=== PATIENT | male | born 1960 | race Caucasian/White ===

== ENCOUNTER → 2018-01-22 | Outpatient (CLI) | payer SELFPAY ==
[~2018-01-22] MED LIST: AMLO5TAB2 PO; ASP325TEC PO; ASPI-983 PO; ASPI-999 PO; BUSP10TA95 PO; CIPR-225 PO; CIPR500T4 PO; CLOP75TA PO; DIAZ5TAB PO; HYDR-3730 PO; HYDR-3923 PO; ISM60TCR PO; ISOS30TA3 PO; LISI10TA2 PO; LOVA20TA2 PO; LSNP20T PO; METO-333 PO; METO-387 PO; METO25TA2 PO; METR500T PO; METR500T21 PO; MTP50T PO; NF-MINO10T PO; OXYC-201 PO; OXYC-202 PO; PANT40TA2 PO; POTA10TA10 PO; RT-ALBUINH IH; SMV20T PO; TRIA1CAP4 PO; ZOLP10TA5 PO; [UNRECOGNIZED DRUG - OTHER]
[2018-01-22 16:08] LABS: BASOPHILS % (AUTO) 0 % (0-10); EOSINOPHILS # (AUTO) 0.1 10^3/uL (0.0-0.3); EOSINOPHILS % (AUTO) 2 % (0-10); HEMATOCRIT 42 % (40-54); HEMOGLOBIN 14.8 G/DL (13.3-17.7); LYMPHOCYTES % (AUTO) 25 % (12-44); MEAN CORPUSCULAR HEMOGLOBIN 33 PG (25-34); MEAN CORPUSCULAR HGB CONC 35 G/DL (32-36); MEAN CORPUSCULAR VOLUME 94 FL (80-99); MEAN PLATELET VOLUME 9.5 FL (7.4-10.4); MONOCYTES # (AUTO) 0.4 X 10^3 (0.0-1.0); MONOCYTES % (AUTO) 5 % (0-12); NEUTROPHILS # (AUTO) 5.4 X 10^3 (1.8-7.8); NEUTROPHILS % (AUTO) 68 % (42-75); PLATELET COUNT 208 10^3/uL (130-400); RED BLOOD COUNT 4.49 10^6/uL (4.35-5.85); RED CELL DISTRIBUTION WIDTH 14.8 % (10.0-14.5); WHITE BLOOD COUNT 7.9 10^3/uL (4.3-11.0)
[2018-01-22 16:09] LABS: BILIRUBIN,URINE NEGATIVE (NEGATIVE); CLARITY,URINE CLEAR; COLOR,URINE YELLOW; GLUCOSE, URINE (UA) NEGATIVE (NEGATIVE); KETONES,URINE NEGATIVE (NEGATIVE); LEUKOCYTE ESTERASE ,URINE NEGATIVE (NEGATIVE); NITRITE,URINE NEGATIVE (NEGATIVE); PH,URINE 7 (5-9); PROTEIN,URINE 3+ (NEGATIVE); UROBILINOGEN,URINE NORMAL (NORMAL)
[2018-01-22 16:15] LABS: SQUAMOUS EPITHELIAL CELL,UR 0-2 /HPF; WBC,URINE RARE /HPF
[2018-01-22 16:28] LABS: ALBUMIN 4.4 GM/DL (3.2-4.5); BILIRUBIN,TOTAL 0.7 MG/DL (0.1-1.0); CALCIUM 9.5 MG/DL (8.5-10.1); CREATININE SERUM 1.46 MG/DL (0.60-1.30); POTASSIUM 2.7 MMOL/L (3.6-5.0); TOTAL PROTEIN 7.4 GM/DL (6.4-8.2)
== END ==
LOC: LAB 15:56
PROVIDERS: ATTEND Internal Medicine
DX: Z00.00 Encounter for general adult medical examination without abnormal findings (principal); R73.9 Hyperglycemia, unspecified
CPT/HCPCS: 36415; 80053; 81000; 82985; 83036; 85025

== ENCOUNTER → 2018-03-17 | Outpatient (CLI) | payer SELFPAY ==
[~2018-03-17] MED LIST changes: -AMLO5TAB2 PO; +AMLO5TAB7 PO; -OXYC-201 PO; -OXYC-202 PO; +OXYC1TAB12 PO; +OXYC1TAB16 PO
[2018-03-17 15:24] LABS: CALCIUM 9.6 MG/DL (8.5-10.1); CREATININE SERUM 1.43 MG/DL (0.60-1.30); POTASSIUM 2.9 MMOL/L (3.6-5.0)
== END ==
LOC: LAB 14:50
PROVIDERS: ATTEND Internal Medicine
DX: N17.9 Acute kidney failure, unspecified (principal)
CPT/HCPCS: 36415; 80048

== ENCOUNTER → 2018-05-11 | Outpatient (CLI) | payer SELFPAY ==
[~2018-05-11] MED LIST changes: +METR-197 PO; -METR500T21 PO
[2018-05-11 13:46] LABS: ALBUMIN 4.2 GM/DL (3.2-4.5); CALCIUM 9.7 MG/DL (8.5-10.1); CREATININE SERUM 1.49 MG/DL (0.60-1.30); POTASSIUM 3.4 MMOL/L (3.6-5.0)
== END ==
LOC: LAB 13:08
PROVIDERS: ATTEND Thoracic Surgery (Cardiothoracic Vascular Surgery)
DX: I25.10 Atherosclerotic heart disease of native coronary artery without angina pectoris (principal); Z95.1 Presence of aortocoronary bypass graft
CPT/HCPCS: 36415; 80069; 84100

== ENCOUNTER → 2018-05-11 | Outpatient (CLI) | payer SELFPAY ==
[2018-05-11 13:31] LABS: BASOPHILS % (AUTO) 0 % (0-10); EOSINOPHILS # (AUTO) 0.2 10^3/uL (0.0-0.3); EOSINOPHILS % (AUTO) 3 % (0-10); HEMATOCRIT 40 % (40-54); HEMOGLOBIN 13.2 G/DL (13.3-17.7); LYMPHOCYTES % (AUTO) 21 % (12-44); MEAN CORPUSCULAR HEMOGLOBIN 31 PG (25-34); MEAN CORPUSCULAR HGB CONC 33 G/DL (32-36); MEAN CORPUSCULAR VOLUME 94 FL (80-99); MEAN PLATELET VOLUME 8.4 FL (7.4-10.4); MONOCYTES # (AUTO) 0.4 X 10^3 (0.0-1.0); MONOCYTES % (AUTO) 4 % (0-12); NEUTROPHILS # (AUTO) 7.1 X 10^3 (1.8-7.8); NEUTROPHILS % (AUTO) 73 % (42-75); PLATELET COUNT 404 10^3/uL (130-400); RED BLOOD COUNT 4.28 10^6/uL (4.35-5.85); RED CELL DISTRIBUTION WIDTH 14.5 % (10.0-14.5); WHITE BLOOD COUNT 9.7 10^3/uL (4.3-11.0)
[2018-05-11 13:49] LABS: ALBUMIN 4.2 GM/DL (3.2-4.5); BILIRUBIN,TOTAL 0.8 MG/DL (0.1-1.0); CALCIUM 9.6 MG/DL (8.5-10.1); CREATININE SERUM 1.5 MG/DL (0.60-1.30); POTASSIUM 3.3 MMOL/L (3.6-5.0); TOTAL PROTEIN 7.5 GM/DL (6.4-8.2)
== END ==
LOC: LAB 13:15
PROVIDERS: ATTEND Internal Medicine
DX: I10 Essential (primary) hypertension (principal); R73.9 Hyperglycemia, unspecified
CPT/HCPCS: 36415; 80053; 85025

== ENCOUNTER 2018-10-22 05:04 | Inpatient (IN) | payer SELFPAY, OTHER | END 2018-10-24 14:27 | disposition home or self-care (01) | LOC: ER 05:04 → 4TH 10-23 13:04 → ICU 07:08 | DX: I13.0 Hypertensive heart and chronic kidney disease with heart failure and stage 1 through stage 4 chronic kidney disease, or unspecified chronic kidney disease (principal); I50.23 Acute on chronic systolic (congestive) heart failure; N18.9 Chronic kidney disease, unspecified; I21.A1 Myocardial infarction type 2; J44.1 Chronic obstructive pulmonary disease with (acute) exacerbation; N17.9 Acute kidney failure, unspecified; I16.0 Hypertensive urgency; E87.6 Hypokalemia; R06.89 Other abnormalities of breathing; F17.210 Nicotine dependence, cigarettes, uncomplicated; I25.708 Atherosclerosis of coronary artery bypass graft(s), unspecified, with other forms of angina pectoris; I25.5 Ischemic cardiomyopathy; E11.51 Type 2 diabetes mellitus with diabetic peripheral angiopathy without gangrene; E78.2 Mixed hyperlipidemia; R79.89 Other specified abnormal findings of blood chemistry; R80.1 Persistent proteinuria, unspecified; M19.91 Primary osteoarthritis, unspecified site; D72.829 Elevated white blood cell count, unspecified; Z91.14 Patient's other noncompliance with medication regimen; Z95.1 Presence of aortocoronary bypass graft; Z95.5 Presence of coronary angioplasty implant and graft; Z95.820 Peripheral vascular angioplasty status with implants and grafts ==

== ENCOUNTER → 2018-10-29 | Outpatient (CLI) | payer OTHER ==
[~2018-10-29] MED LIST changes: +AMLO10TA7 PO; -AMLO5TAB7 PO; +AMLO5TAB9 PO; +EPIN11.7 IH; +FLUT1DIS27 IH; +FURO-124 PO; +FURO20TA4 PO; +METO-451 PO; +METR-145 PO; -METR-197 PO; +PRAV20TA3 PO; +TRAZ-189 PO
[2018-10-29 10:03] LABS: BASOPHILS % (AUTO) 0 % (0-10); EOSINOPHILS # (AUTO) 0.2 10^3/uL (0.0-0.3); EOSINOPHILS % (AUTO) 1 % (0-10); HEMATOCRIT 44 % (40-54); HEMOGLOBIN 13.7 G/DL (13.3-17.7); LYMPHOCYTES # (AUTO) 2.3 X 10^3 (1.0-4.0); LYMPHOCYTES % (AUTO) 18 % (12-44); MEAN CORPUSCULAR HEMOGLOBIN 28 PG (25-34); MEAN CORPUSCULAR HGB CONC 31 G/DL (32-36); MEAN CORPUSCULAR VOLUME 88 FL (80-99); MEAN PLATELET VOLUME 9.1 FL (7.4-10.4); MONOCYTES # (AUTO) 1.1 X 10^3 (0.0-1.0); MONOCYTES % (AUTO) 9 % (0-12); NEUTROPHILS # (AUTO) 8.8 X 10^3 (1.8-7.8); NEUTROPHILS % (AUTO) 71 % (42-75); PLATELET COUNT 251 10^3/uL (130-400); RED CELL DISTRIBUTION WIDTH 16.4 % (10.0-14.5); WHITE BLOOD COUNT 12.4 10^3/uL (4.3-11.0)
[2018-10-29 10:27] LABS: BILIRUBIN,TOTAL 1.2 MG/DL (0.1-1.0); CALCIUM 9.5 MG/DL (8.5-10.1); CREATININE SERUM 1.79 MG/DL (0.60-1.30); POTASSIUM 3.8 MMOL/L (3.6-5.0)
--- NOTE | 2018-10-29 11:35 | Diagnostic Imaging Report ---
INDICATION: Shortness of breath PA and lateral chest There are postop changes from CABG surgery. Heart size and pulmonary vascularity are normal. Lungs are clear. There are no effusions or pneumothoraces. IMPRESSION: No acute abnormalities in the chest Dictated by: Dictated on workstation # [id number]
== END ==
LOC: LAB 09:47
PROVIDERS: ATTEND Internal Medicine
DX: I10 Essential (primary) hypertension (principal); I73.9 Peripheral vascular disease, unspecified; R10.9 Unspecified abdominal pain; J44.9 Chronic obstructive pulmonary disease, unspecified; R05 Cough; Z95.1 Presence of aortocoronary bypass graft
CPT/HCPCS: 36415; 71046; 80053; 83880; 85025

== ENCOUNTER 2018-11-15 18:40 | Observation (INO) | payer OTHER ==
[~2018-11-15] VITALS: Ht 182.9 cm; Wt 85.5 kg
[2018-11-15] VITALS (7 sets, daily range): BP systolic 129–175; BP diastolic 68–96
[~2018-11-15 18:40] MED LIST changes: -TRAZ-189 PO; +TRAZ-222 PO
--- NOTE | 2018-11-15 18:56 | ED Chest Pain ---
General Chief Complaint: Chest Pain Stated Complaint: CP Source: patient, EMS, old records Exam Limitations: no limitations History of Present Illness Date Seen by Provider: Nov 15, 2018 Time Seen by Provider: 18:42 Initial Comments Patient presents to ER by EMS with chief complaint that he was about 30 minutes prior to arrival sitting in his living room watching TV when he began to experience sharp 10 out of 10 right-sided chest pain. He has a history of CABG, congestive heart failure and just got out of the hospital 2 weeks ago. He had a 1 week follow-up and said he still had fluid on his lungs but was looking okay. Many of his medicines been changed so he's not as familiar with them now but he thinks he has been taking all of them as prescribed with the exception of one pill but he missed yesterday. He is not sure what the name of it was. He took a dose of nitroglycerin at 1805 which helped his pain and he took a second dose about 10 minutes later just prior to EMS arriving. By the time EMS arrived his pain was pretty much resolved. He is having no shortness of breath orthopnea or swelling in his hands or feet. He denies any weight gain recently. EMS gave him 324 mg of aspirin to chew up and swallow. His blood pressure was about 107 systolic so the did not give him any more nitroglycerin as he was pain-free. He also has a history of synthetic aortofemoral bypass grafts bilaterally. He does still smoke but is down from 2 packs a day to one pack a day working on [employer]. He had nausea at the time of this pain but that has resolved before EMS got to him. Allergies and Home Medications Allergies Coded Allergies: No Known Drug Allergies (Unverified , 03/18/11) Home Medications Amlodipine Besylate 10 Mg Tablet, 10 MG PO DAILY Prescribed by: YINA REAGAN on 10/24/18 1149 Aspirin 81 Mg Tab.chew, 81 MG PO DAILY, (Reported) Epinephrine 11.7 Gm Hfa.aer.ad, 1-2 PUFF IH Q6H PRN for SHORTNESS OF BREATH, (Reported) Furosemide 40 Mg Tablet, 40 MG PO Q48H Prescribed by: YINA REAGAN on 10/24/18 1149 Metoprolol Tartrate 50 Mg Tablet, 25 MG PO BID Prescribed by: YINA REAGAN on 10/24/18 1149 Pravastatin Sodium 20 Mg Tablet, 20 MG PO DAILY Prescribed by: YINA REAGAN on 10/24/18 1149 Trazodone HCl 50 Mg Tablet, 50 MG PO HS PRN for SLEEP, (Reported) Patient Home Medication List Home Medication List Reviewed: Yes Review of Systems Review of Systems Constitutional: No chills, No diaphoresis EENTM: No Blurred Vision, No Double Vision Respiratory: Cough (Baseline often productive); Denies Shortness of Air, Denies Wheezing Cardiovascular: See HPI, Chest Pain; Denies Edema, Denies Palpitations, Denies Syncope Gastrointestinal: Denies Constipated, Denies Diarrhea; Nausea Genitourinary: Denies Burning, Denies Discharge Musculoskeletal: No back pain, No joint pain Skin: No change in color, No rash Psychiatric/Neurological: Denies Headache, Denies Numbness Past Ppvrnei-Gjjfxi-Bppozr Hx Patient Social History Alcohol Use: Occasionally Uses Alcohol Beverage of Choice: Beer Recreational Drug Use: No Smoking Status: Current Everyday Smoker Type Used: Cigarettes (one pack per day) Recent Foreign Travel: No Contact w/Someone Who Travel: No Recent Hopitalizations: No Immunizations Up To Date Tetanus Booster (TDap): Unknown PED Vaccines UTD: No Seasonal Allergies Seasonal Allergies: No Past Medical History Surgeries: Yes Abdominal, Appendectomy, Cardiac, CABG, Coronary Stent, Vascular Surgery Respiratory: Yes Asthma, COPD Currently Using CPAP: No Currently Using BIPAP: No Cardiac: Yes Coronary Artery Disease, High Cholesterol, Hypertension, Peripheral Vascular Neurological: No Reproductive Disorders: No Sexually Transmitted Disease: No HIV/AIDS: No Genitourinary: No Gastrointestinal: Yes (UMBILICAL HERNIA REPAIR) Abdominal Hernia Musculoskeletal: Yes Arthritis, Chronic Back Pain Endocrine: Yes Diabetes, Non-Insulin dep HEENT: No Hearing Impairment: Hard of Hearing Cancer: No Psychosocial: No Integumentary: No Blood Disorders: No Adverse Reaction/Blood Tranf: No Family Medical History Cardiovascular disease 19 FATHER 19 MOTHER Deafness or hearing loss 19 FATHER Diabetes mellitus 19 FATHER 19 MOTHER FH: cancer Hypercholesterolemia 19 FATHER 19 MOTHER Hypertension 19 FATHER 19 MOTHER Myocardial infarction 19 FATHER 19 MOTHER No Pertinent Family Hx, CAD Over 55 Years Old, Diabetes, Hypertension Physical Exam Vital Signs Vital Signs - First Documented 11/15/18 11/15/18 18:40 18:48 Temp 97.6 Pulse 64 Resp 24 B/P (MAP) 147/84 (105) Pulse Ox 97 O2 Delivery Room Air Capillary Refill : Height, Weight, BMI Height: 6'0.00" Weight: 191lbs. 8.0oz. 86.046140dx; 29.8 BMI Method:Stated General Appearance: No Apparent Distress, WD/WN HEENT: PERRL/EOMI, Pharynx Normal, Moist Mucous Membranes Neck: Full Range of Motion, Normal Inspection Respiratory: No Accessory Muscle Use, No Respiratory Distress, Decreased Breath Sounds Cardiovascular: Regular Rate, Rhythm, No Edema, Normal Peripheral Pulses Gastrointestinal: Non Tender, Soft Extremity: Normal Capillary Refill, Normal Inspection, Pedal Edema (trace bilateral) Neurologic/Psychiatric: Alert, Oriented x3 Skin: Normal Color, Warm/Dry Progress/Results/Core Measures Results/Orders Lab Results Laboratory Tests Test 11/15/18 18:47 Range/Units White Blood Count 11.9 H 4.3-11.0 10^3/uL Red Blood Count 4.93 4.35-5.85 10^6/uL Hemoglobin 13.5 13.3-17.7 G/DL Hematocrit 42 40-54 % Mean Corpuscular Volume 84 80-99 FL Mean Corpuscular Hemoglobin 27 25-34 PG Mean Corpuscular Hemoglobin Concent 33 32-36 G/DL Red Cell Distribution Width 15.3 H 10.0-14.5 % Platelet Count 240 130-400 10^3/uL Mean Platelet Volume 9.1 7.4-10.4 FL Neutrophils (%) (Auto) 60 42-75 % Lymphocytes (%) (Auto) 32 12-44 % Monocytes (%) (Auto) 6 0-12 % Eosinophils (%) (Auto) 2 0-10 % Basophils (%) (Auto) 0 0-10 % Neutrophils # (Auto) 7.1 1.8-7.8 X 10^3 Lymphocytes # (Auto) 3.8 1.0-4.0 X 10^3 Monocytes # (Auto) 0.7 0.0-1.0 X 10^3 Eosinophils # (Auto) 0.2 0.0-0.3 10^3/uL Basophils # (Auto) 0.0 0.0-0.1 10^3/uL Prothrombin Time 12.8 12.2-14.7 SEC INR Comment 0.9 0.8-1.4 Activated Partial Thromboplast Time 40 H 24-35 SEC Sodium Level 138 135-145 MMOL/L Potassium Level 3.2 L 3.6-5.0 MMOL/L Chloride Level 101 98-107 MMOL/L Carbon Dioxide Level 25 21-32 MMOL/L Anion Gap 12 5-14 MMOL/L Blood Urea Nitrogen 15 7-18 MG/DL Creatinine 1.33 H 0.60-1.30 MG/DL Estimat Glomerular Filtration Rate 55 BUN/Creatinine Ratio 11 Glucose Level 77 70-105 MG/DL Calcium Level 9.1 8.5-10.1 MG/DL Corrected Calcium 9.3 8.5-10.1 MG/DL Magnesium Level 1.9 1.8-2.4 MG/DL Total Bilirubin 0.4 0.1-1.0 MG/DL Aspartate Amino Transf (AST/SGOT) 16 5-34 U/L Alanine Aminotransferase (ALT/SGPT) 13 0-55 U/L Alkaline Phosphatase 103 40-136 U/L Myoglobin 53.9 10.0-92.0 NG/ML Troponin I 0.049 H <0.028 NG/ML B-Type Natriuretic Peptide 602.6 H <100.0 PG/ML Total Protein 6.4 6.4-8.2 GM/DL Albumin 3.7 3.2-4.5 GM/DL Lipase 104 H 8-78 U/L My Orders Orders - TITO WILEY Cbc With Automated Diff (11/15/18 18:50) Magnesium (11/15/18 18:50) Chest 1 View, Ap/Pa Only (11/15/18 18:50) Ekg Tracing (11/15/18 18:50) Cardiac Profile 1 (11/15/18 18:50) Comprehensive Metabolic Panel (11/15/18 18:50) Myoglobin Serum (11/15/18 18:50) Protime With Inr (11/15/18 18:50) Partial Thromboplastin Time (11/15/18 18:50) O2 (11/15/18 18:50) Monitor-Rhythm Ecg Trace Only (11/15/18 18:50) Lipid Panel (11/16/18 06:00) Ed Iv/Invasive Line Start (11/15/18 18:50) Lipase (11/15/18 18:50) BNP (11/15/18 18:50) Metoprolol Succinate (Xl) Tab (Toprol Xl (11/15/18 20:00) Enoxaparin Injection (Lovenox Injection) (11/15/18 20:00) Vital Signs/I&O 11/15/18 11/15/18 18:40 18:48 Temp 97.6 Pulse 64 Resp 24 B/P (MAP) 147/84 (105) Pulse Ox 97 O2 Delivery Room Air Progress Progress Note : Time: 18:57 Progress Note Patient is pain-free at this time. Since he had an anginal event that was resolved with 2 doses of nitroglycerin. We will obtain BNP, troponin and consult with cardiology. Initial ECG Impression Date: Nov 15, 2018 Initial ECG Impression Time: 18:45 Initial ECG Rate: 64 Initial ECG Rhythm: Normal Sinus Initial ECG Intervals: Normal Initial ECG Impression: Normal, Nonspecific Changes Initial ECG Comparisson: Unchanged Comment No significant ST elevation or depression. Diagnostic Imaging Diagonstic Imaging: Xray Plain Films/CT/US/NM/MRI: chest (1v) Comments No acute cardiopulmonary processes noted. Reviewed: Reviewed by Me Consults : Consulting Physician: CHERIE JOHNSON MD FACP FACC CCDS Consults Notes He would recommend observation of the patient serial troponins and Lovenox weight-based as well as aspirin and metoprolol 25 succinate. Regular diet. Departure Communication (Admissions) Time/Spoke to Admitting Phy: 20:00 Discussed case lab EKG imaging findings with Dr. Reagan and she recommends nicotine patch, Xanax, Tylenol and morphine as necessary for pain and agitation. Time/Spoke to Consulting Phy: 20:[address] Johnson and his recommendations of metoprolol and Lovenox were initiated. Regular diet and transfer of care and consult back to Dr. Arteaga in the morning. Impression Primary Impression: Unstable angina Additional Impression: Chest pain due to CAD Disposition: ADMITTED INPATIENT Condition: Stable Admissions Decision to Admit Reason: Admit from ER (General) Decision to Admit/Date: Nov 15, 2018 Time/Decision to Admit Time: 19:30 Departure-Patient Inst. Referrals: YINA REAGAN DO (PCP/Family) Primary Care Physician TITO WILEY Nov 15, 2018 18:56
[2018-11-15 18:57] LABS: BASOPHILS % (AUTO) 0 % (0-10); EOSINOPHILS # (AUTO) 0.2 10^3/uL (0.0-0.3); EOSINOPHILS % (AUTO) 2 % (0-10); HEMATOCRIT 42 % (40-54); HEMOGLOBIN 13.5 G/DL (13.3-17.7); LYMPHOCYTES # (AUTO) 3.8 X 10^3 (1.0-4.0); LYMPHOCYTES % (AUTO) 32 % (12-44); MEAN CORPUSCULAR HEMOGLOBIN 27 PG (25-34); MEAN CORPUSCULAR HGB CONC 33 G/DL (32-36); MEAN CORPUSCULAR VOLUME 84 FL (80-99); MEAN PLATELET VOLUME 9.1 FL (7.4-10.4); MONOCYTES # (AUTO) 0.7 X 10^3 (0.0-1.0); MONOCYTES % (AUTO) 6 % (0-12); NEUTROPHILS # (AUTO) 7.1 X 10^3 (1.8-7.8); NEUTROPHILS % (AUTO) 60 % (42-75); PLATELET COUNT 240 10^3/uL (130-400); RED CELL DISTRIBUTION WIDTH 15.3 % (10.0-14.5); WHITE BLOOD COUNT 11.9 10^3/uL (4.3-11.0)
[2018-11-15 19:05] LABS: INR 0.9 (0.8-1.4); PROTHROMBIN TIME PATIENT 12.8 SEC (12.2-14.7)
[2018-11-15 19:15] LABS: ALBUMIN 3.7 GM/DL (3.2-4.5); BILIRUBIN,TOTAL 0.4 MG/DL (0.1-1.0); CALCIUM 9.1 MG/DL (8.5-10.1); CREATININE SERUM 1.33 MG/DL (0.60-1.30); MAGNESIUM 1.9 MG/DL (1.8-2.4); POTASSIUM 3.2 MMOL/L (3.6-5.0); TOTAL PROTEIN 6.4 GM/DL (6.4-8.2)
[2018-11-15] MEDS ORDERED: ENOXAPARIN 100 MG/1 ML (LOVENOX) SYR SC ONE (20:00)
--- NOTE | 2018-11-15 20:21 | Diagnostic Imaging Report ---
INDICATION: Chest pain. COMPARISON: 10/29/2018. EXAMINATION: Single view of the chest was obtained. FINDINGS: Cardiomegaly with median sternotomy changes are again noted. There has been development of mild bilateral perihilar infiltrate, bilaterally, since previous exam. There are no consolidated infiltrates. No pneumothorax or pleural effusion. IMPRESSION: 1. Cardiomegaly with postoperative change. 2. Bilateral perihilar infiltrates developing which may be secondary to developing pulmonary edema. Atypical pneumonia could have similar appearance. Dictated by: Dictated on workstation # [id number]
--- NOTE | 2018-11-15 20:25 | NUR ---
Report given to CHANDAN Frazier in ICU
[2018-11-15] MEDS ORDERED: NITROGLYCERIN 0.4 MG SL TABS BTL 25'S SL PRN (20:45)
[2018-11-15] MEDS ORDERED: ALPRAZolam 1 MG (XANAX) TAB PO PRN (20:45)
[2018-11-15] MEDS ORDERED: ACETAMINOPHEN 500 MG TAB (TYLENOL) PO PRN (20:45)
[2018-11-15] MEDS ORDERED: ONDANSETRON 4 MG/2 ML (SDV) Z0FRAN IV PRN (20:45)
[2018-11-15] MEDS ORDERED: morphine INJ 4 MG/ML 1 ML (VIAL/SYRINGE) IV PRN (20:45)
[2018-11-15] MEDS ORDERED: traZODone 50 MG (DESYREL) TAB PO PRN (20:45)
[2018-11-15] MEDS ORDERED: ANTACID SUSP 30 ML UDC (MYLANTA) PO PRN (20:45)
[2018-11-15] MEDS ORDERED: ATORVASTATIN 40 MG (LIPITOR) TABLET PO SCH (21:00)
[2018-11-15] MEDS: meTOprolol TARTRATE 25 MG (LOPRESSOR) TABLET PO SCH (21:07)
[2018-11-15] MEDS: KCL 20 MEQ TAB (K-DUR) PO SCH (21:07)
--- NOTE | 2018-11-15 21:39 | NUR ---
PT BROUGHT SOME OF HIS HOME MEDS. ADVISED THAT HAS PRESCRIBED SOME DIFFERENT MEDS AT DIFFERENT DOSES AND WE HAVE TO FOLLOW THE NEW ORDERS. GAVE MEDS BACK TO PT AND HIS YESSENIA AND THEY VOICED THEIR UNDERSTANDING. ADVISED THEM TO DISCUSS MEDS W IN THE MORNING.
[2018-11-16] VITALS: BP 144/72
--- NOTE | 2018-11-16 00:43 | NUR ---
GAVE REPORT TO CHANDAN ALVES.
[2018-11-16 01:11] LABS: BASOPHILS % (AUTO) 0 % (0-10); EOSINOPHILS # (AUTO) 0.2 10^3/uL (0.0-0.3); EOSINOPHILS % (AUTO) 2 % (0-10); HEMATOCRIT 42 % (40-54); HEMOGLOBIN 13.5 G/DL (13.3-17.7); LYMPHOCYTES # (AUTO) 2.9 X 10^3 (1.0-4.0); LYMPHOCYTES % (AUTO) 29 % (12-44); MEAN CORPUSCULAR HEMOGLOBIN 27 PG (25-34); MEAN CORPUSCULAR HGB CONC 33 G/DL (32-36); MEAN CORPUSCULAR VOLUME 84 FL (80-99); MEAN PLATELET VOLUME 9.1 FL (7.4-10.4); MONOCYTES # (AUTO) 0.5 X 10^3 (0.0-1.0); MONOCYTES % (AUTO) 5 % (0-12); NEUTROPHILS # (AUTO) 6.5 X 10^3 (1.8-7.8); NEUTROPHILS % (AUTO) 64 % (42-75); PLATELET COUNT 200 10^3/uL (130-400); RED CELL DISTRIBUTION WIDTH 15.5 % (10.0-14.5); WHITE BLOOD COUNT 10.1 10^3/uL (4.3-11.0)
[2018-11-16 01:27] LABS: CALCIUM 9.2 MG/DL (8.5-10.1); CREATININE SERUM 1.37 MG/DL (0.60-1.30); POTASSIUM 3.2 MMOL/L (3.6-5.0)
[2018-11-16 01:28] LABS: CHOLESTEROL 164 MG/DL (< 200); HDL CHOLESTEROL 33 MG/DL (40-60); TRIGLYCERIDES 157 MG/DL (<150); VLDL CHOLESTEROL 31 MG/DL (5-40)
[2018-11-16 04:00] VITALS: BP 152/81
[2018-11-16 05:00] VITALS: BP 100/56
[2018-11-16 06:00] VITALS: BP 101/58
[2018-11-16] MEDS ORDERED: FUROSEMIDE 40 MG (LASIX) TAB PO SCH (07:00)
--- NOTE | 2018-11-16 07:49 | Consultation-Cardiology ---
HPI-Cardiology Cardiology Consultation Date of Consultation 11/16/18 Date of Admission Time Seen by Provider: 07:43 Indication: chest pain HPI 58 years old gentleman with extensive coronary and peripheral arterial disease was in his usual state of health until yesterday evening when he started having sudden onset severe chest pain retrosternal, took a nitroglycerin that did not h elp the pain after the second nitroglycerin started to feel better by then the EMS were called and brought him to the hospital. He has been feeling better since arriving to the hospital, denied any further episode of chest pain, he felt hot and flushed but denied any syncope. No palpitation. Has been compliant with his medication but not sure about his medication list, still an active smoker and working on smoking cessation Home Medications & Allergies Allergies: Coded Allergies: No Known Drug Allergies (Unverified , 03/18/11) Home Medication List Reviewed: Yes patient is not sure of his medication list [id number]-Giitpo Hx Patient Social History Marital Status: Employed/Student: employed Alcohol Use: Occasionally Uses Recreational Drug Use: No Smoking Status: Current Everyday Smoker Type Used: Cigarettes (one pack per day) Recent Foreign Travel: No Recent Infectious Disease Expo: No Recent Hopitalizations: Yes (2 weeks ago at [facility]) Immunizations Up To Date Tetanus Booster (TDap): Unknown Past Medical History discussed below Family Medical History Significant Family History: No Pertinent Family Hx, CAD Over 55 Years Old, Gilda betes, Hypertension Family History: Cardiovascular disease 19 FATHER 19 MOTHER Deafness or hearing loss 19 FATHER Diabetes mellitus 19 FATHER 19 MOTHER FH: cancer Hypercholesterolemia 19 FATHER 19 MOTHER Hypertension 19 FATHER 19 MOTHER Myocardial infarction 19 FATHER 19 MOTHER Review of Systems-General Review of Systems Constitutional: No chills, No diaphoresis; malaise EENTM: see HPI, no symptoms reported Respiratory: see HPI; No cough; dyspnea on exertion; No hemoptysis, No orthopnea, No phlegm, No short of breath, No stridor, No wheezing, No other Cardiovascular: see HPI, chest pain; No edema, No Hx of Intervention, No palpitations, No syncope, No vascular heart diseas, No other Gastrointestinal: no symptoms reported, see HPI Genitourinary: no symptoms reported, see HPI Musculoskeletal: no symptoms reported, see HPI; No back pain, No joint pain Skin: no symptoms reported, see HPI; No change in color, No rash Psychiatric/Neurological: No Symptoms Reported, See HPI; Denies Headache, Denies Numbness Reviewed Test Results Reviewed Test Results Lab Laboratory Tests Test 11/15/18 18:47 11/16/18 01:01 11/16/18 06:59 Range/Units White Blood Count 11.9 H 10.1 4.3-11.0 10^3/uL Red Blood Count 4.93 4.95 4.35-5.85 10^6/uL Hemoglobin 13.5 13.5 13.3-17.7 G/DL Hematocrit 42 42 40-54 % Mean Corpuscular Volume 84 84 80-99 FL Mean Corpuscular Hemoglobin 27 27 25-34 PG Mean Corpuscular Hemoglobin Concent 33 33 32-36 G/DL Red Cell Distribution Width 15.3 H 15.5 H 10.0-14.5 % Platelet Count 240 200 130-400 10^3/uL Mean Platelet Volume 9.1 9.1 7.4-10.4 FL Neutrophils (%) (Auto) 60 64 42-75 % Lymphocytes (%) (Auto) 32 29 12-44 % Monocytes (%) (Auto) 6 5 0-12 % Eosinophils (%) (Auto) 2 2 0-10 % Basophils (%) (Auto) 0 0 0-10 % Neutrophils # (Auto) 7.1 6.5 1.8-7.8 X 10^3 Lymphocytes # (Auto) 3.8 2.9 1.0-4.0 X 10^3 Monocytes # (Auto) 0.7 0.5 0.0-1.0 X 10^3 Eosinophils # (Auto) 0.2 0.2 0.0-0.3 10^3/uL Basophils # (Auto) 0.0 0.0 0.0-0.1 10^3/uL Prothrombin Time 12.8 12.2-14.7 SEC INR Comment 0.9 0.8-1.4 Activated Partial Thromboplast Time 40 H 24-35 SEC Sodium Level 138 138 135-145 MMOL/L Potassium Level 3.2 L 3.2 L 3.6-5.0 MMOL/L Chloride Level 101 103 98-107 MMOL/L Carbon Dioxide Level 25 25 21-32 MMOL/L Anion Gap 12 10 5-14 MMOL/L Blood Urea Nitrogen 15 14 7-18 MG/DL Creatinine 1.33 H 1.37 H 0.60-1.30 MG/DL Estimat Glomerular Filtration Rate 55 53 BUN/Creatinine Ratio 11 10 Glucose Level 77 106 H 70-105 MG/DL Calcium Level 9.1 9.2 8.5-10.1 MG/DL Corrected Calcium 9.3 8.5-10.1 MG/DL Magnesium Level 1.9 1.8-2.4 MG/DL Total Bilirubin 0.4 0.1-1.0 MG/DL Aspartate Amino Transf (AST/SGOT) 16 5-34 U/L Alanine Aminotransferase (ALT/SGPT) 13 0-55 U/L Alkaline Phosphatase 103 40-136 U/L Myoglobin 53.9 10.0-92.0 NG/ML Troponin I 0.049 H < 0.028 0.029 H <0.028 NG/ML B-Type Natriuretic Peptide 602.6 H <100.0 PG/ML Total Protein 6.4 6.4-8.2 GM/DL Albumin 3.7 3.2-4.5 GM/DL Lipase 104 H 8-78 U/L Triglycerides Level 157 H <150 MG/DL Cholesterol Level 164 < 200 MG/DL LDL Cholesterol Direct 115 1-129 MG/DL VLDL Cholesterol 31 5-40 MG/DL HDL Cholesterol 33 L 40-60 MG/DL Physical Exam Physical Exam Vital Signs Vital Signs - First Documented 11/15/18 11/15/18 18:40 18:48 Temp 97.6 Pulse 64 Resp 24 B/P (MAP) 147/84 (105) Pulse Ox 97 O2 Delivery Room Air Capillary Refill : Less Than 3 SecondsLess Than 3 Seconds Height, Weight, BMI Height: 6'0.00" Weight: 188lbs. 8.0oz. 85.925434bl; 26.6 BMI Method:Stated General Appearance: No Apparent Distress, WD/WN Eyes: Bilateral Eye Normal Inspection, Bilateral Eye PERRL, Bilateral Eye EOMI HEENT: PERRL/EOMI, Pharynx Normal, Moist Mucous Membranes Neck: Full Range of Motion, Normal Inspection Respiratory: No Accessory Muscle Use, No Respiratory Distress, Decreased Breath Sounds Cardiovascular: Regular Rate, Rhythm, No Edema, Normal Peripheral Pulses, Systolic Murmur, Gallop/S3 Gastrointestinal: Non Tender, Soft Back: Normal Inspection, No CVA Tenderness, No Vertebral Tenderness Extremity: Normal Inspection, Normal Range of Motion, Non Tender, Pedal Edema (trace bilateral) Neurologic/Psychiatric: Alert, Oriented x3 Skin: Normal Color, Warm/Dry Lymphatic: No Adenopathy A/P-Cardiology Admission Diagnosis Unstable angina Chronic kidney disease Coronary artery disease Peripheral arterial disease Assessment/Plan Chest pain, unstable angina, reporting improvement, cardiac enzymes were negative, EKG had nondiagnostic changes. Patient had extensive coronary artery disease will need cardiac catheterization, I will arrange for it in [facility] with the presence of replenishment buyer and cardiothoracic surgery Chronic kidney disease stage IV, currently renal function are better. Feeling better. Pleural effusion, pulmonary edema, congestive heart failure, acute on chronic left ventricular systolic dysfunction, ischemic cardiomyopathy, last echocardiogram was done on October 22, 2018 showing ejection fraction 40-45 percent, mild mitral regurgitation, grade 1 diastolic dysfunction, PA pressure 15 mmHg, better at this time. Chest x-ray showed improvement. BNP is still elevated. Borderline hypotension, history of malignant hypertension with difficult to control. Currently tolerating Toprol and Norvasc. Coronary artery disease, history of CABG 3 using MATTSON to LAD, vein graft to OM, vein graft to PDA done in October 2013. Last stress test was done in 2015. Showing no ischemia, I was unable to do cardiac catheterization due to his severe peripheral arterial disease last year, I discussed the management plan with Dr. Stubbs who will proceed with cardiac catheterization tomorrow on November 17, 2018 at 8 a.m., patient will need to be at the hospital at 630 in the morning Severe peripheral arterial disease, underwent surgery with Dr. sexton in March 2018 for abdominal aortic aneurysm and severe peripheral arterial disease, questionable aortobifemoral bypass and reported having a total of 6 peripheral stents including iliac stent, had history of stent in the past. Continue to monitor Hyperlipidemia, started on Lipitor 10 mg daily on the last visit. Continue to monitor COPD, consult Dr. Granados. Tobaccoism, still an active smoker, educated on smoking cessation. Diabetes mellitus. Followed and managed by primary care physician History of noncompliance with medications Clinical Quality Measures AMI/AHF: ASA po Prior to arrival: Yes DVT/VTE Risk/Contraindication: Risk Factor Score Per Nursin RFS Level Per Nursing on Admit: 4+=Very High SUSAN BAJWA MD Nov 16, 2018 07:49
[2018-11-16 08:00] VITALS: BP 163/92
[2018-11-16] MEDS ORDERED: ENOXAPARIN 100 MG/1 ML (LOVENOX) SYR SC SCH (09:00)
[2018-11-16] MEDS ORDERED: ASPIRIN E.C. 81 MG (ECOTRIN) TAB PO SCH (09:00)
[2018-11-16] MEDS ORDERED: NICOTINE 14 MG (NICODERM) PATCH TD SCH (09:00)
[2018-11-16] MEDS ORDERED: amLODIPine 10 MG (NORVASC) TAB PO SCH (09:00)
[2018-11-16] MEDS ORDERED: lisINopril 5 MG (PRINIVIL) TABLET PO SCH (09:00)
[2018-11-16] MEDS: meTOprolol TARTRATE 25 MG (LOPRESSOR) TABLET PO SCH (09:08)
[2018-11-16] MEDS: KCL 20 MEQ TAB (K-DUR) PO SCH (09:09)
--- NOTE | 2018-11-16 10:05 | Short Stay Summary-Hospitalist ---
History of Present Illness HPI/Chief Complaint CC: Chest Pain HPI: This is a 58yoWM with a hx of severe peripheral vascular disease s/p lower extremity bypass surgery 10 months ago and coronary artery bypass grafts [address] Mosqueda at [facility] who presented with chest pain and called the ambulance. He was found to have subtle elevation and Troponin 0.049 down to 0.029 this morning but in need of cardiac catheterization so those arrangements were made by Dr. Arteaga with Dr. Rod at 8:00 tomorrow morning. He will perform cardiac catheterization there due to access problems in the past in addition to renal insufficiency at high risk for nephropathy problems after cardiac catheterization. Smoking cessation as counseled. Reviewed home medication list and will resume everything he had on admission. Source: patient, old records, caregiver Exam Limitations: no limitations Date Seen 11/16/18 Time Seen by a Provider: 09:15 Attending Physician Solange Henry DO PCP Solange Henry DO Referring Physician CHERIE TEJADA MD FACP FACC CCDS Date of Admission Nov 15, 2018 at 19:45 Home Medications & Allergies Home Medications Reviewed patient Home Medication Reconciliation performed by pharmacy medication reconciliations microbiology quality control technician and/or nursing. Patients Allergies have been reviewed. Allergies Allergies Coded Allergies No Known Drug Allergies (Lgfviyrwrd31/3/11) Past Ezqxotk-Ikoluo-Qdgavo Hx Past Med/Social Hx: Reviewed Nursing Past Med/Soc Hx, Reviewed and Corrections made Patient Social History Marrital Status: cohabiting Employed/Student: employed Alcohol Use: Occasionally Uses Number of Drinks Today: AA Alcohol Beverage of Choice: Beer Recreational Drug Use: No Smoking Status: Current Everyday Smoker Type Used: Cigarettes (one pack per day) Recent Foreign Travel: No Contact w/other who traveled: No Recent Hopitalizations: Yes (2 weeks ago at [facility]) Recent Infectious Disease Expo: No Immunizations Up To Date Tetanus Booster (TDap): Unknown Pediatric: No Seasonal Allergies Seasonal Allergies: No Past Medical History Surgeries: Abdominal, Appendectomy, Cardiac, CABG, Coronary Stent, Vascular Surgery Respiratory: COPD, Pneumonia Currently Using CPAP: No Currently Using BIPAP: No Cardiac: Coronary Artery Disease, High Cholesterol, Hypertension, Peripheral V ascular Reproductive: No Sexually Transmitted Disease: No HIV/AIDS: No Gastrointestinal: Abdominal Hernia Musculoskeletal: Arthritis, Chronic Back Pain Endocrine: Diabetes, Non-Insulin dep Hearing Impairment: Hard of Hearing History of Blood Disorders: No Adverse Reaction to Blood Boswell: No Family History Cardiovascular disease 19 FATHER 19 MOTHER Deafness or hearing loss 19 FATHER Diabetes mellitus 19 FATHER 19 MOTHER FH: cancer Hypercholesterolemia 19 FATHER 19 MOTHER Hypertension 19 FATHER 19 MOTHER Myocardial infarction 19 FATHER 19 MOTHER No Pertinent Family Hx, CAD Over 55 Years Old, Diabetes, Hypertension Review of Systems Constitutional: see HPI, weakness EENTM: no symptoms reported Respiratory: no symptoms reported Cardiovascular: chest pain Gastrointestinal: no symptoms reported Genitourinary: no symptoms reported Musculoskeletal: no symptoms reported Skin: no symptoms reported Psychiatric/Neurological: No Symptoms Reported All Other Systems Reviewed Negative Unless Noted: Yes Physical Exam Physical Exam Vital Signs Vital Signs - First Documented 11/15/18 11/15/18 18:40 18:48 Temp 97.6 Pulse 64 Resp 24 B/P (MAP) 147/84 (105) Pulse Ox 97 O2 Delivery Room Air Capillary Refill : Less Than 3 SecondsLess Than 3 Seconds Height, Weight, BMI Height: 6'0.00" Weight: 188lbs. 8.0oz. 85.514131qm; 26.6 BMI Method:Stated General Appearance: No Apparent Distress, WD/WN Eyes: Bilateral Eye Normal Inspection, Bilateral Eye PERRL, Bilateral Eye EOMI HEENT: PERRL/EOMI, Pharynx Normal, Moist Mucous Membranes Neck: Full Range of Motion, Normal Inspection Respiratory: No Accessory Muscle Use, No Respiratory Distress, Decreased Breath Sounds Cardiovascular: Regular Rate, Rhythm, No Edema, Normal Peripheral Pulses, Systolic Murmur, Gallop/S3 Gastrointestinal: Non Tender, Soft Back: Normal Inspection, No CVA Tenderness, No Vertebral Tenderness Extremity: Normal Inspection, Normal Range of Motion, Non Tender, Pedal Edema (trace bilateral) Neurologic/Psychiatric: Alert, Oriented x3 Skin: Normal Color, Warm/Dry Lymphatic: No Adenopathy Results Results/Procedures Labs Laboratory Tests 11/15/18 18:47 11/16/18 01:01 Patient resulted labs reviewed. Short Stay Diagnosis Discharge Diagnosis-Short Stay Admission Diagnosis NSTEMI CAD PVD Smoker HTN Final Discharge Diagnosis NSTEMI CAD PVD Smoker HTN Conclusion Plan Plan: Cardiac cath tomorrow at [facility] due to poor access via caths in the past Clinical Quality Measures AMI/AHF: ASA po Prior to arrival: Yes DVT/VTE Risk/Contraindication: Risk Factor Score Per Nursin RFS Level Per Nursing on Admit: 4+=Very High SOLANGE HENRY DO Nov 16, 2018 10:05
== END 2018-11-16 10:04 | disposition home or self-care (01) ==
LOC: EDUNIT# 18:40 → ER 18:40 → UNDOADMOB 19:45 → ICU 19:45 → UNDODISOB 11-16 10:18
PROVIDERS: ADMIT Internal Medicine; ATTEND Internal Medicine
DX: I21.4 Non-ST elevation (NSTEMI) myocardial infarction (principal); I25.10 Atherosclerotic heart disease of native coronary artery without angina pectoris; I13.0 Hypertensive heart and chronic kidney disease with heart failure and stage 1 through stage 4 chronic kidney disease, or unspecified chronic kidney disease; I50.23 Acute on chronic systolic (congestive) heart failure; N18.4 Chronic kidney disease, stage 4 (severe); E11.22 Type 2 diabetes mellitus with diabetic chronic kidney disease; E78.00 Pure hypercholesterolemia, unspecified; I73.9 Peripheral vascular disease, unspecified; J44.9 Chronic obstructive pulmonary disease, unspecified; F17.210 Nicotine dependence, cigarettes, uncomplicated; Z79.82 Long term (current) use of aspirin; Z79.899 Other long term (current) drug therapy; Z95.1 Presence of aortocoronary bypass graft; Z95.5 Presence of coronary angioplasty implant and graft; Z95.820 Peripheral vascular angioplasty status with implants and grafts
CPT/HCPCS: 36415; 71045; 80048; 80053; 80061; 83690; 83735; 83874; 83880; 84484; 85025; 85610; 85730; 93005; 93041; 96372

== ENCOUNTER 2018-11-25 11:06 | Observation (INO) | payer OTHER ==
[~2018-11-25] VITALS: Ht 182.9 cm; Wt 77.3 kg
[2018-11-25 15:29] VITALS: BP 104/48
[2018-11-25 16:00] VITALS: BP 104/48
--- NOTE | 2018-11-25 16:05 | Consultation-Cardiology ---
HPI-Cardiology Cardiology Consultation Date of Consultation 11/25/18 Date of Admission Time Seen by Provider: 15:00 Indication: chest pain, syncope HPI Patient is a 58 y/o male with history of CAD, underwent cardiac catheterization with Dr. Rod on 11/16/18 with Promus stent to the diagonal. Presented to ER in [place] with complaints of CP and syncope. Reports he was getting into his truck at work with he had sudden onset of dizziness and lightheadedness followed by brief episode of chest pain. Patient took 1 SL Nitro and had syncopal episode. Upon interviewing patient he reports he is feeling better. Denies any further episode of chest pain, denies dizziness or lightheadedness. Initial troponin done at [place] ER was negative, repeat troponin done upon arrival to [facility] mildly elevated (0.09). Reports compliance with medications. Home Medications & Allergies Allergies: Coded Allergies: No Known Drug Allergies (Unverified , 03/18/11) Home Medication List Reviewed: Yes DUY-Ojpxuj-Povrvm Hx Patient Social History Marital Status: Alcohol Use: Denies Use Recreational Drug Use: No Smoking Status: Current Everyday Smoker Type Used: Cigarettes Recent Foreign Travel: No Recent Infectious Disease Expo: No Recent Hopitalizations: Yes ([facility], THIS WEEK) Physical Abuse Screen: No Sexual Abuse: No Immunizations Up To Date Tetanus Booster (TDap): Unknown Past Medical History CAD, HTN, HLP Family Medical History Significant Family History: No Pertinent Family Hx, CAD Over 55 Years Old, Diabetes, Hypertension Family History: Cardiovascular disease 19 FATHER 19 MOTHER Deafness or hearing loss 19 FATHER Diabetes mellitus 19 FATHER 19 MOTHER FH: cancer Hypercholesterolemia 19 FATHER 19 MOTHER Hypertension 19 FATHER 19 MOTHER Myocardial infarction 19 FATHER 19 MOTHER Review of Systems-General Review of Systems Constitutional: No chills, No diaphoresis; dizziness; No fever, No malaise, No weakness EENTM: No ear pain, No blurred vision, No double vision, No vision loss, No epistaxis Respiratory: No cough, No dyspnea on exertion, No orthopnea Cardiovascular: chest pain; No edema, No palpitations; syncope; No vascular heart diseas Gastrointestinal: No abdominal pain, No constipation, No diarrhea Genitourinary: No dysuria, No hematuria Musculoskeletal: No back pain, No joint pain Skin: No dryness, No lesions, No rash Psychiatric/Neurological: Denies Anxiety, Denies Depressed Reviewed Test Results Reviewed Test Results Lab Laboratory Tests 11/25/18 15:10: Troponin I 0.090H ECG Impression ECG Initial ECG Rhythm: Normal Sinus Physical Exam Physical Exam Vital Signs Vital Signs - First Documented 11/25/18 11/25/18 11/25/18 12:37 14:09 15:29 Temp 98.1 Pulse 59 Resp 16 B/P (MAP) 104/48 (66) Pulse Ox 96 O2 Delivery Room Air Capillary Refill : Height, Weight, BMI Height: 6'0.00" Weight: 170lbs. 7.0oz. 77.094630wc; 23.1 BMI Method:Stated General Appearance: No Apparent Distress, WD/WN HEENT: Normal ENT Inspection Neck: Full Range of Motion, Normal Inspection, Non Tender, Supple Respiratory: Chest Non Tender, Lungs Clear, Normal Breath Sounds, No Accessory Muscle Use, No Respiratory Distress Cardiovascular: Regular Rate, Rhythm, No Edema, No Gallop, No JVD, No Murmur, Normal Peripheral Pulses Gastrointestinal: Non Tender, Soft Rectal: Deferred Back: No CVA Tenderness Extremity: Non Tender, No Calf Tenderness Neurologic/Psychiatric: Alert, Oriented x3 A/P-Cardiology Admission Diagnosis Chest pain Syncope CAD HTN Assessment/Plan Chest pain, nonspecific etiology. Repeat troponin mildly elevated. No acute EKG changes. Patient is pain free at this time. Will continue to monitor overnight, repeat troponin in a.m. Syncope- could be secondary to hypotension exacerbated by SL nitro. Continue to monitor. Coronary artery disease, history of CABG 3 using MATTSON to LAD, vein graft to OM, vein graft to PDA done in October 2013. Last stress test was done in 2015. Showing no ischemia, Unable to do cardiac catheterization due to his severe peripheral arterial disease last year, was referred to Dr. Rod and underwent cardiac catheterization on 11/17/18 revealing LM with 50-60% stenosis at the distal portion. LAD with 40-50% mid-stent stenosis, 1st diag had 90% stenosis, reduced to 0% after Promus 2.5 x24mm stent placement. L Cx with 30% stenosis. Totally occluded RCA with extensive Left to right collaterals. Occluded VG to the RCA, patent MATTSON to LAD and VG to Ramus/OMB-1 Chronic kidney disease stage IV, monitor renal function Congestive heart failure, ischemic cardiomyopathy, last echocardiogram was done on October 22, 2018 showing ejection fraction 40-45 percent, mild mitral regurgitation, grade 1 diastolic dysfunction, PA pressure 15 mmHg. HTN- controlled. History of borderline hypotension. Continue to monitor blood pressure. Severe peripheral arterial disease, underwent surgery with Dr. Levin in March 2018 for abdominal aortic aneurysm and severe peripheral arterial disease, questionable aortobifemoral bypass and reported having a total of 6 peripheral stents including iliac stent, had history of stent in the past. Continue to monitor Hyperlipidemia, started on Lipitor 10 mg daily. Continue to monitor COPD Tobaccoism, still an active smoker, educated on smoking cessation. Diabetes mellitus. Followed and managed by primary care physician History of noncompliance with medications, patient reports recent compliance with medications. Thank you for allowing us to participate in the management of Mr. Rosario. This is Antoinette Harper Pa-C, as a scribe for Dr. rAteaga. Clinical Quality Measures DVT/VTE Risk/Contraindication: Risk Factor Score Per Nursin RFS Level Per Nursing on Admit: 4+=Very High ANTOINETTE RIOJAS Nov 25, 2018 16:05
[2018-11-25] MEDS ORDERED: CLOP75TA69 PO (16:14)
[2018-11-25] MEDS ORDERED: METO50TA15 PO (16:23)
[2018-11-25] MEDS ORDERED: AMLO10TA7 PO (16:23)
[2018-11-25] MEDS ORDERED: PRAV20TA3 PO (16:23)
[2018-11-25] MEDS ORDERED: FURO40TA4 PO (16:23)
--- NOTE | 2018-11-25 16:23 | Consultation-Cardiology ---
HPI-Cardiology Cardiology Consultation Date of Consultation 11/25/18 Date of Admission Time Seen by Provider: 15:00 Indication: chest pain, syncope HPI Patient is a 58 y/o male with history of CAD, underwent cardiac catheterization with Dr. Rod on 11/16/18 with Promus stent to the diagonal. Presented to ER in [place] with complaints of CP and syncope. Reports he was getting into his truck at work with he had sudden onset of dizziness and lightheadedness followed by brief episode of chest pain. Patient took 1 SL Nitro and had syncopal episode. Upon interviewing patient he reports he is feeling better. Denies any further episode of chest pain, denies dizziness or lightheadedness. Initial troponin done at [place] [facility] was negative, repeat troponin done upon arrival to [facility] mildly elevated (0.09). Reports compliance with medications. Home Medications & Allergies Allergies: Coded Allergies: No Known Drug Allergies (Unverified , 03/18/11) Home Medication List Reviewed: Yes GHE-Fsvguh-Fitzsy Hx Patient Social History Marital Status: Alcohol Use: Denies Use Recreational Drug Use: No Smoking Status: Current Everyday Smoker Type Used: Cigarettes Recent Foreign Travel: No Recent Infectious Disease Expo: No Recent Hopitalizations: Yes ([facility], THIS WEEK) Physical Abuse Screen: No Sexual Abuse: No Immunizations Up To Date Tetanus Booster (TDap): Unknown Past Medical History CAD, HTN, HLP Family Medical History Significant Family History: No Pertinent Family Hx, CAD Over 55 Years Old, Diabetes, Hypertension Family History: Cardiovascular disease 19 FATHER 19 MOTHER Deafness or hearing loss 19 FATHER Diabetes mellitus 19 FATHER 19 MOTHER FH: cancer Hypercholesterolemia 19 FATHER 19 MOTHER Hypertension 19 FATHER 19 MOTHER Myocardial infarction 19 FATHER 19 MOTHER Review of Systems-General Review of Systems Constitutional: No chills, No diaphoresis; dizziness; No fever, No malaise, No weakness EENTM: No ear pain, No blurred vision, No double vision, No vision loss, No epistaxis Respiratory: No cough, No dyspnea on exertion, No orthopnea Cardiovascular: chest pain; No edema, No palpitations; syncope; No vascular heart diseas Gastrointestinal: see HPI; No abdominal pain, No constipation, No diarrhea Genitourinary: see HPI; No dysuria, No hematuria Musculoskeletal: see HPI; No back pain, No joint pain Skin: see HPI; No dryness, No lesions, No rash Psychiatric/Neurological: See HPI; Denies Anxiety, Denies Depressed Reviewed Test Results Reviewed Test Results Lab Laboratory Tests Test 11/25/18 15:10 Range/Units Troponin I 0.090 H <0.028 NG/ML Physical Exam Physical Exam Vital Signs Vital Signs - First Documented 11/25/18 11/25/18 11/25/18 12:37 14:09 15:29 Temp 98.1 Pulse 59 Resp 16 B/P (MAP) 104/48 (66) Pulse Ox 96 O2 Delivery Room Air Capillary Refill : Height, Weight, BMI Height: 6'0.00" Weight: 170lbs. 7.0oz. 77.124622ya; 23.1 BMI Method:Stated General Appearance: No Apparent Distress, WD/WN HEENT: Normal ENT Inspection Neck: Full Range of Motion, Normal Inspection, Non Tender, Supple Respiratory: Chest Non Tender, Lungs Clear, Normal Breath Sounds, No Accessory Muscle Use, No Respiratory Distress Cardiovascular: Regular Rate, Rhythm, No Edema, No Gallop, No JVD, No Murmur, Normal Peripheral Pulses Gastrointestinal: Non Tender, Soft Rectal: Deferred Back: No CVA Tenderness Extremity: Non Tender, No Calf Tenderness Neurologic/Psychiatric: Alert, Oriented x3 A/P-Cardiology Admission Diagnosis Chest pain Syncope CAD HTN Assessment/Plan Chest pain, nonspecific etiology. Repeat troponin mildly elevated. No acute EKG changes. Patient is pain free at this time. Will continue to monitor overnight, repeat troponin in a.m. Syncope- could be secondary to hypotension exacerbated by SL nitro, continue on IV fluid and monitor. Coronary artery disease, history of CABG 3 using MATTSON to LAD, vein graft to OM, vein graft to PDA done in October 2013. Last stress test was done in 2015. Showing no ischemia, Unable to do cardiac catheterization due to his severe peripheral arterial disease last year, was referred to Dr. Rod and underwent cardiac catheterization on 11/17/18 revealing LM with 50-60% stenosis at the distal portion. LAD with 40-50% mid-stent stenosis, 1st diag had 90% stenosis, reduced to 0% after Promus 2.5 x24mm stent placement. L Cx with 30% stenosis. Totally occluded RCA with extensive Left to right collaterals. Occluded VG to the RCA, patent MATTSON to LAD and VG to Ramus/OMB-1, his elevated troponin is probably due to the hypotension with the small vessel disease. No acute EKG changes and cardiac enzymes were negative. Continue to monitor Chronic kidney disease stage IV, monitor renal function Congestive heart failure, ischemic cardiomyopathy, last echocardiogram was done on October 22, 2018 showing ejection fraction 40-45 percent, mild mitral regurgitation, grade 1 diastolic dysfunction, PA pressure 15 mmHg. HTN- controlled. History of borderline hypotension. Continue to monitor blood pressure. Severe peripheral arterial disease, underwent surgery with Dr. Levin in March 2018 for abdominal aortic aneurysm and severe peripheral arterial disease, questionable aortobifemoral bypass and reported having a total of 6 peripheral stents including iliac stent, had history of stent in the past. Continue to monitor Hyperlipidemia, started on Lipitor 10 mg daily. Continue to monitor COPD Tobaccoism, still an active smoker, educated on smoking cessation. Diabetes mellitus. Followed and managed by primary care physician History of noncompliance with medications, patient reports recent compliance with medications. Clinical Quality Measures DVT/VTE Risk/Contraindication: Risk Factor Score Per Nursin RFS Level Per Nursing on Admit: 4+=Very High SUSAN BAJWA MD Nov 25, 2018 16:23
[2018-11-25] MEDS ORDERED: DOXY25TA50 PO (16:27)
[2018-11-25] MEDS ORDERED: ASPI-983 PO (16:27)
--- NOTE | 2018-11-25 16:28 | NUR ---
SPOKE WITH THE PATIENT ABOUT HIS MEDICATIONS. HE HAS HIS PRESCRIPTION BOTTLES WITH HIM AND VERIFIED HOW HE TAKES THEM. IN ADDITION TO WHAT IS SHOWN ON THE EXT MED HX HE FILLED PLA[facility]IX AT [facility], HE TAKES IT EVERY MORNING. HIS LASIX WAS FILLED Q48 HOURS HOWEVER HE STATES IT HAS BEEN INCREASED TO EVERY DAY. HE TAKES ASPIRIN 81MG DAILY AND SLEEP AID HS OTC.
[2018-11-25] MEDS ORDERED: CATHETER FLUSH 10 ML SYR IV PRN (17:00)
[2018-11-25] MEDS: NS IV 1000 ML 1,000 ML IV SCH (17:23)
[2018-11-25 19:24] VITALS: BP 153/84
[2018-11-25] MEDS ORDERED: meTOprolol TARTRATE 50 MG (LOPRESSOR) TAB PO SCH (21:00)
[2018-11-25] MEDS ORDERED: SIMvastatin 10 MG (ZOCOR) TAB PO SCH ×2 (21:00)
[2018-11-26 01:06] VITALS: BP 147/87
[2018-11-26 04:06] LABS: BASOPHILS % (AUTO) 0 % (0-10); EOSINOPHILS # (AUTO) 0.1 10^3/uL (0.0-0.3); EOSINOPHILS % (AUTO) 1 % (0-10); HEMATOCRIT 43 % (40-54); HEMOGLOBIN 13.8 G/DL (13.3-17.7); LYMPHOCYTES # (AUTO) 2.6 X 10^3 (1.0-4.0); LYMPHOCYTES % (AUTO) 29 % (12-44); MEAN CORPUSCULAR HEMOGLOBIN 27 PG (25-34); MEAN CORPUSCULAR HGB CONC 32 G/DL (32-36); MEAN CORPUSCULAR VOLUME 86 FL (80-99); MEAN PLATELET VOLUME 10.1 FL (7.4-10.4); MONOCYTES # (AUTO) 0.6 X 10^3 (0.0-1.0); MONOCYTES % (AUTO) 6 % (0-12); NEUTROPHILS # (AUTO) 5.8 X 10^3 (1.8-7.8); NEUTROPHILS % (AUTO) 64 % (42-75); PLATELET COUNT 247 10^3/uL (130-400); RED CELL DISTRIBUTION WIDTH 16.4 % (10.0-14.5); WHITE BLOOD COUNT 9.2 10^3/uL (4.3-11.0)
[2018-11-26 04:32] LABS: CALCIUM 9.3 MG/DL (8.5-10.1); CREATININE SERUM 1.59 MG/DL (0.60-1.30); POTASSIUM 3.2 MMOL/L (3.6-5.0)
--- NOTE | 2018-11-26 07:33 | Cardiology Progress Note ---
Subjective Date Seen by Provider: Nov 26, 2018 Time Seen by Provider: 07:28 Subjective/Events-last exam patient is feeling better, looked pressure is better. No new complaint. Review of Systems General: No Chills, No Night Sweats, No Fatigue, No Malaise, No Appetite, No Other HEENT: No Head Aches, No Visual Changes, No Eye Pain, No Ear Pain, No Dysphasia, No Sinus Congestion, No Post Nasal Drip, No Sore Throat, No Other Pulmonary: No Dyspnea, No Cough, No Pleuritic Chest Pain, No Other Cardiovascular: No: Chest Pain, Palpitations, Orthopnea, Paroxysmal Noc. Dyspnea, Edema, Lt Headedness, Other Objective-Cardiology Exam Last Set of Vital Signs Vital Signs 11/26/18 01:06 Temp 98.6 Pulse 63 Resp 16 B/P (MAP) 147/87 (107) Pulse Ox 97 O2 Delivery Room Air Capillary Refill : I&O Intake and Output 11/26/18 00:00 Intake Total 600 ml Output Total 850 ml Balance -250 ml Intake Oral 600 ml Output Urine Total 850 ml Daily Weight Change No Results Lab Laboratory Tests 11/26/18 03:05 A/P-Cardiology Admission Diagnosis Chest pain Syncope CAD HTN Assessment/Plan Chest pain, nonspecific etiology. mild troponin elevation that is trending down, did not have any EKG changes, no active chest pain Syncope- could be secondary to hypotension exacerbated by SL nitro and hypovolemia, I will decrease Lasix dose and monitor. Hypokalemia, replace and monitor Coronary artery disease, history of CABG 3 using MATTSON to LAD, vein graft to OM, vein graft to PDA done in October 2013. Last stress test was done in 2015. Showing no ischemia, Unable to do cardiac catheterization due to his severe peripheral arterial disease last year, was referred to Dr. Rod and underwent cardiac catheterization on 11/17/18 revealing LM with 50-60% stenosis at the distal portion. LAD with 40-50% mid-stent stenosis, 1st diag had 90% stenosis, reduced to 0% after Promus 2.5 x24mm stent placement. L Cx with 30% stenosis. Totally occluded RCA with extensive Left to right collaterals. Occluded VG to the RCA, patent MATTSON to LAD and VG to Ramus/OMB-1, his elevated troponin is probably due to the hypotension with the small vessel disease. No acute EKG changes and cardiac enzymes were negative. Continue to monitor Chronic kidney disease stage IV, monitor renal function Congestive heart failure, ischemic cardiomyopathy, last echocardiogram was done on October 22, 2018 showing ejection fraction 40-45 percent, mild mitral regurgitation, grade 1 diastolic dysfunction, PA pressure 15 mmHg. HTN- controlled. History of borderline hypotension. Continue to monitor blood pressure. Severe peripheral arterial disease, underwent surgery with Dr. Levin in March 2018 for abdominal aortic aneurysm and severe peripheral arterial disease, questionable aortobifemoral bypass and reported having a total of 6 peripheral stents including iliac stent, had history of stent in the past. Continue to monitor Hyperlipidemia, started on Lipitor 10 mg daily. Continue to monitor COPD Tobaccoism, still an active smoker, educated on smoking cessation. Diabetes mellitus. Followed and managed by primary care physician History of noncompliance with medications, patient reports recent compliance with medications. Clinical Quality Measures DVT/VTE Risk/Contraindication: Risk Factor Score Per Nursin RFS Level Per Nursing on Admit: 4+=Very High SUSAN BAJWA MD Nov 26, 2018 07:33
[2018-11-26] MEDS ORDERED: FURO-125 PO (07:38)
[2018-11-26] MEDS ORDERED: POTA10TA PO (07:38)
--- NOTE | 2018-11-26 07:39 | Clinic Account Progress/Dx ---
Clinic Account Progress/Dx DIAGNOSIS: Date Seen by Provider: Nov 26, 2018 Time Seen by Provider: 07:39 Chest pain Syncope CAD HTN SUSAN BAJWA MD Nov 26, 2018 07:39
[2018-11-26] MEDS ORDERED: KCL 20 MEQ TAB (K-DUR) PO NR (07:45)
[2018-11-26] MEDS: NS IV 1000 ML 1,000 ML IV SCH (07:59)
--- NOTE | 2018-11-26 08:05 | NUR ---
Pt wishes to take morning meds when he gets home
[2018-11-26 09:00] VITALS: BP 184/92
[2018-11-26] MEDS ORDERED: ASPIRIN E.C. 81 MG (ECOTRIN) TAB PO SCH (09:00)
[2018-11-26] MEDS ORDERED: NON-FORMULARY MEDICATION 1 EA EA (Pravastatin Sodium 20 MG) PO SCH (09:00)
[2018-11-26] MEDS ORDERED: CLOPIDOGREL 75 MG (PLAVIX) TABLET PO SCH (09:00)
== END 2018-11-26 09:00 | disposition home or self-care (01) ==
LOC: ICU 12:44
PROVIDERS: ADMIT Internal Medicine Cardiovascular Disease; ATTEND Internal Medicine Cardiovascular Disease
DX: R07.9 Chest pain, unspecified (principal); R55 Syncope and collapse; I25.10 Atherosclerotic heart disease of native coronary artery without angina pectoris; I13.0 Hypertensive heart and chronic kidney disease with heart failure and stage 1 through stage 4 chronic kidney disease, or unspecified chronic kidney disease; E87.6 Hypokalemia; Z95.1 Presence of aortocoronary bypass graft; N18.4 Chronic kidney disease, stage 4 (severe); I50.9 Heart failure, unspecified; I73.9 Peripheral vascular disease, unspecified; E78.5 Hyperlipidemia, unspecified; J44.9 Chronic obstructive pulmonary disease, unspecified; E11.9 Type 2 diabetes mellitus without complications; F17.210 Nicotine dependence, cigarettes, uncomplicated; Z91.14 Patient's other noncompliance with medication regimen
CPT/HCPCS: 36415; 80048; 84484; 85025; 93005; 99211

== ENCOUNTER 2020-09-08 12:42 | Inpatient (IN) | payer SELFPAY ==
[~2020-09-08] VITALS: Ht 182 cm; Wt 105.6 kg
[~2020-09-08 12:42] MED LIST changes: +AMLO-250 PO; +AMLO-251 PO; -AMLO10TA7 PO; -AMLO5TAB9 PO; +ASPI-1238 PO; -ASPI-983 PO; -CIPR500T4 PO; +CIPR500T5 PO; +CLOP75TA69 PO; +DOXY25TA50 PO; +FURO-125 PO; +FURO40TA4 PO; -ISOS30TA3 PO; +ISOS30TA82 PO; -LISI10TA2 PO; +LISI10TA25 PO; -METO-387 PO; +METO50TA15 PO; +MTP25TSR PO; +POTA10TA PO; -TRAZ-222 PO; +TRZ50T PO
--- NOTE | 2020-09-08 13:04 | ED General ---
General Stated Complaint: L ARM NUMBNESS / CHEST PAIN Source of Information: Patient Exam Limitations: No Limitations History of Present Illness Date Seen by Provider: Sep 08, 2020 Time Seen by Provider: 12:59 Initial Comments 60-year-old gentleman presents to ER with reports of intermittent chest pain most recently this morning lasting a few minutes before resolving. However he also has left arm numbness since 4 PM yesterday. No left leg weakness. No other neurologic complaints. History of multiple vascular interventions including CABG. chest pain-free at this time but does have ongoing left arm numbness.Has had both COVID vaccines. Timing/Duration: 12-24 Hours Severity: Moderate Associated Systoms: Chest Pain; No Headaches, No Nausea/Vomiting Allergies and Home Medications Allergies Coded Allergies: No Known Drug Allergies (Unverified , 03/18/11) Home Medications Amlodipine Besylate 10 Mg Tablet, 10 MG PO DAILY, (Reported) Aspirin 81 Mg Tablet.dr, 81 MG PO DAILY, (Reported) Clopidogrel Bisulfate 75 Mg Tablet, 75 MG PO DAILY, (Reported) Doxylamine Succinate 25 Mg Tablet, 25 MG PO HS, (Reported) Furosemide 20 Mg Tablet, 20 MG PO DAILY PRN for edema or dyspnea Prescribed by: SUSAN BAJWA on 11/26/18 0738 Metoprolol Tartrate 50 Mg Tablet, 25 MG PO BID, (Reported) TAKES 1/2 (50MG) TABLET Potassium Chloride 10 Meq Tablet.er, 10 MEQ PO DAILY PRN for Take with Lasix Prescribed by: SUSAN BAJWA on 11/26/18 0738 Pravastatin Sodium 20 Mg Tablet, 20 MG PO DAILY, (Reported) Patient Home Medication List Home Medication List Reviewed: Yes Review of Systems Review of Systems Constitutional: see HPI; No chills, No fever EENTM: see HPI Respiratory: no symptoms reported Cardiovascular: no symptoms reported Genitourinary: no symptoms reported Musculoskeletal: no symptoms reported Skin: no symptoms reported Psychiatric/Neurological: No Symptoms Reported Hematologic/Lymphatic: No Symptoms Reported Immunological/Allergic: no symptoms reported Past Cnnbffz-Avxjfq-Skqsic Hx Patient Social History Alcohol Beverage of Choice: Beer Type Used: Cigarettes Recent Hopitalizations: Yes ([facility], THIS WEEK) Immunizations Up To Date Tetanus Booster (TDap): Unknown PED Vaccines UTD: No Seasonal Allergies Seasonal Allergies: No Past Medical History Surgeries: Yes Abdominal, Appendectomy, Cardiac, CABG, Coronary Stent, Vascular Surgery Respiratory: Yes Asthma Currently Using CPAP: No Currently Using BIPAP: No Cardiac: Yes Coronary Artery Disease, High Cholesterol, Hypertension, Peripheral Vascular Neurological: No Reproductive Disorders: No Sexually Transmitted Disease: No HIV/AIDS: No Genitourinary: No Gastrointestinal: Yes (UMBILICAL HERNIA REPAIR) Abdominal Hernia Musculoskeletal: No Arthritis, Chronic Back Pain Endocrine: No Diabetes, Non-Insulin dep HEENT: No Hearing Impairment: Hard of Hearing Cancer: No Psychosocial: No Integumentary: No Blood Disorders: No Adverse Reaction/Blood Tranf: No Family Medical History Cardiovascular disease 19 FATHER 19 MOTHER Deafness or hearing loss 19 FATHER Diabetes mellitus 19 FATHER 19 MOTHER FH: cancer Hypercholesterolemia 19 FATHER 19 MOTHER Hypertension 19 FATHER 19 MOTHER Myocardial infarction 19 FATHER 19 MOTHER No Pertinent Family Hx, CAD Over 55 Years Old, Diabetes, Hypertension Physical Exam Vital Signs Vital Signs - First Documented 09/08/20 12:45 Temp 35.9 Pulse 72 Resp 18 B/P (MAP) 186/88 (120) Pulse Ox 97 O2 Delivery Room Air Capillary Refill : Height, Weight, BMI Height: 6'0.00" Weight: 170lbs. 7.0oz. [id number]; 23.1 BMI Method:Stated General Appearance: No Apparent Distress, WD/WN, Chronically ill, Other (Hypertensive at 180/100. Appears older than stated age.) Eyes: Bilateral Eye Normal Inspection, Bilateral Eye PERRL, Bilateral Eye EOMI Neck: Full Range of Motion, Normal Inspection Respiratory: Normal Breath Sounds, No Accessory Muscle Use, No Respiratory Distress Cardiovascular: Regular Rate, Rhythm, Normal Peripheral Pulses, Other (There were no ST segment changes on EKG. Rhythm is sinus) Gastrointestinal: Non Tender, Soft Neurologic/Psychiatric: Alert, Oriented x3 Skin: Normal Color, Warm/Dry Progress/Results/Core Measures Suspected Sepsis SIRS Temperature: Pulse: Respiratory Rate: Laboratory Tests 09/08/20 12:54: White Blood Count 7.1 Blood Pressure / Mean: Laboratory Tests 09/08/20 12:54: Creatinine 1.69H, INR Comment 0.9, Platelet Count 187, Total Bilirubin 0.7 Results/Orders Lab Results Laboratory Tests Test 09/08/20 12:54 Range/Units White Blood Count 7.1 4.3-11.0 10^3/uL Red Blood Count 5.21 4.30-5.52 10^6/uL Hemoglobin 15.5 13.3-17.7 g/dL Hematocrit 48 40-54 % Mean Corpuscular Volume 93 80-99 fL Mean Corpuscular Hemoglobin 30 25-34 pg Mean Corpuscular Hemoglobin Concent 32 32-36 g/dL Red Cell Distribution Width 14.4 10.0-14.5 % Platelet Count 187 130-400 10^3/uL Mean Platelet Volume 9.7 9.0-12.2 fL Immature Granulocyte % (Auto) 0 % Neutrophils (%) (Auto) 62 42-75 % Lymphocytes (%) (Auto) 31 12-44 % Monocytes (%) (Auto) 5 0-12 % Eosinophils (%) (Auto) 2 0-10 % Basophils (%) (Auto) 1 0-10 % Neutrophils # (Auto) 4.4 1.8-7.8 10^3/uL Lymphocytes # (Auto) 2.2 1.0-4.0 10^3/uL Monocytes # (Auto) 0.4 0.0-1.0 10^3/uL Eosinophils # (Auto) 0.2 0.0-0.3 10^3/uL Basophils # (Auto) 0.0 0.0-0.1 10^3/uL Immature Granulocyte # (Auto) 0.0 0.0-0.1 10^3/uL Prothrombin Time 12.8 12.2-14.7 SEC INR Comment 0.9 0.8-1.4 Activated Partial Thromboplast Time 36 H 24-35 SEC Sodium Level 137 135-145 MMOL/L Potassium Level 3.6 3.6-5.0 MMOL/L Chloride Level 103 98-107 MMOL/L Carbon Dioxide Level 23 21-32 MMOL/L Anion Gap 11 5-14 MMOL/L Blood Urea Nitrogen 12 7-18 MG/DL Creatinine 1.69 H 0.60-1.30 MG/DL Estimat Glomerular Filtration Rate 41 BUN/Creatinine Ratio 7 Glucose Level 132 H 70-105 MG/DL Calcium Level 8.7 8.5-10.1 MG/DL Corrected Calcium 8.4 L 8.5-10.1 MG/DL Magnesium Level 1.9 1.6-2.4 MG/DL Total Bilirubin 0.7 0.1-1.0 MG/DL Aspartate Amino Transf (AST/SGOT) 25 5-34 U/L Alanine Aminotransferase (ALT/SGPT) 25 0-55 U/L Alkaline Phosphatase 102 40-136 U/L Myoglobin 169.3 H 10.0-92.0 NG/ML Troponin I 0.042 H <0.028 NG/ML B-Type Natriuretic Peptide 130.2 H <100.0 PG/ML Total Protein 7.2 6.4-8.2 GM/DL Albumin 4.4 3.2-4.5 GM/DL My Orders Orders - CATIE CABALLERO CHUCKING AND [employer]WING MACHINE OPERATOR Cbc With Automated Diff (09/08/20 12:51) Magnesium (09/08/20 12:51) Chest 1 View, Ap/Pa Only (09/08/20 12:51) Ekg Tracing (09/08/20 12:51) Comprehensive Metabolic Panel (09/08/20 12:51) Myoglobin Serum (09/08/20 12:51) Protime With Inr (09/08/20 12:51) Partial Thromboplastin Time (09/08/20 12:51) O2 (09/08/20 12:51) Monitor-Rhythm Ecg Trace Only (09/08/20 12:51) Lipid Panel (09/09/20 06:00) Ed Iv/Invasive Line Start (09/08/20 12:51) BNP (09/08/20 12:51) Troponin I (09/08/20 12:51) Nothing By Mouth (09/08/20 Lunch) Vital Signs Stroke Patient Q15M (09/08/20 12:51) Dysphagia Screening Tool (09/08/20 12:51) Post Thrombolytic Adminstratio (09/08/20 12:51) Ct Angio Head/Neck (09/08/20 12:51) Ns Iv 1000 Ml (Sodium Chloride 0.9%) (09/08/20 13:45) Iohexol Injection (Omnipaque 350 Mg/Ml 1 (09/08/20 13:45) Received Contrast (Hold Metformin- Contr (09/08/20 13:45) Sodium Chloride Flush (Catheter Flush Sy (09/08/20 13:45) Ns (Ivpb) (Sodium Chloride 0.9% Ivpb Bag (09/08/20 13:45) Iohexol Injection (Omnipaque 350 Mg/Ml 1 (09/08/20 14:15) Received Contrast (Hold Metformin- Contr (09/08/20 14:15) Ns (Ivpb) (Sodium Chloride 0.9% Ivpb Bag (09/08/20 14:15) Medications Given in ED Current Medications Medications Dose Ordered Sig/Sonia Route Start Time Stop Time Status Last Admin Dose Admin Iohexol 75 ml ONCE ONCE IV 09/08/20 13:45 09/08/20 13:46 DC 09/08/20 14:45 75 ML Sodium Chloride 100 ml ONCE ONCE IV 09/08/20 13:45 09/08/20 13:46 DC 09/08/20 14:45 80 ML Vital Signs/I&O 09/08/20 12:45 Temp 35.9 Pulse 72 Resp 18 B/P (MAP) 186/88 (120) Pulse Ox 97 O2 Delivery Room Air Capillary Refill : Diagnostic Imaging Diagonstic Imaging: Xray Comments NAME: ROB [facility] REC#: [id number] PT STATUS: REG ER : 1960 PHYSICIAN: CATIE CABALLERO APRN ADMIT DATE: 09/08/20/ER Draft Date of Exam:09/08/20 CHEST 1 VIEW, AP/PA ONLY INDICATION: Chest pain COMPARISON: 11/15/2018. FINDINGS: Single frontal view of the chest demonstrates normal heart size and pulmonary vascularity. The lungs are well aerated and clear. No large pleural effusion or pneumothorax is seen. The visualized osseous structures show no acute abnormalities. Sternotomy wires are noted. IMPRESSION: 1. No acute cardiopulmonary process. Dictated on workstation # [id number] Dict: 09/08/20 1353 Trans: 09/08/20 1355 [id number] Interpreted by: ANTONETTE SWEENEY MD Electronically signed by: Departure Communication (Admissions) 1306-He scores one-point on NIH stroke scale for left arm reduced sensation. 1538-left arm numbness has resolved during his ER stay. His chest pain remains absent during his ER stay. I spoke with Dr. Reynoso from stroke neurology at the [facility] in regards to the bilateral cervical vertebral artery occlusion. This is reconstituted distally with collaterals. He agrees nothing more to be done as the patient is already on aspirin and Plavix. Patient is on pravastatin and he did suggest possibly switching to a more efficacious statin. Would recommend checking a lipid profile during admission. He would be best served by allowing some hypertension up to 160 systolic. I then spoke with Dr. Xiong from cardiology here. Recommends echocardiogram, serial troponins, Lovenox this evening done in the morning, Plavix bolus [address] Reagan will admit. Blood pressure 149 systolic currently. Impression Primary Impression: Transient left arm weakness Additional Impression: Chest pain Disposition: ADMITTED INPATIENT Condition: Stable Admissions Decision to Admit Reason: Admit from ER (General) Decision to Admit/Date: Sep 08, 2020 Time/Decision to Admit Time: 14:49 Departure-Patient Inst. Referrals: YINA REAGAN DO (PCP/Family) Primary Care Physician NIH Stroke Scale NIH Stroke Scale NIH : Select: Initial Level of Consciousness: 0=Alert Level of Consciousness-Questio: 0=Answers both month/age LOC Commands: 0=Performs both tasks Gaze: 0=Normal Visual Shabazz: 0=No visual loss Facial Movement (Facial Paresi: 0=Normal symmetrical mnt Motor Function-Arms Right: 0=No drift Motor Function-Arms Left: 0=No drift Motor Function-Legs Right: 0=No drift Motor Function-Legs Left: 0=No drift Limb Ataxia: 0=Absent Sensory: 1=Mild to Moderate loss Best Language: 0=No aphasia Dysarthria: 0=Normal Extinction & Inattention: 0=No abnormality NIH Stroke Scale Score: 1 CATIE CABALLERO APRN Sep 08, 2020 13:04
[2020-09-08 13:05] LABS: BASOPHILS % (AUTO) 1 % (0-10); EOSINOPHILS # (AUTO) 0.2 10^3/uL (0.0-0.3); EOSINOPHILS % (AUTO) 2 % (0-10); HEMATOCRIT 48 % (40-54); HEMOGLOBIN 15.5 g/dL (13.3-17.7); LYMPHOCYTES # (AUTO) 2.2 10^3/uL (1.0-4.0); LYMPHOCYTES % (AUTO) 31 % (12-44); MEAN CORPUSCULAR HEMOGLOBIN 30 pg (25-34); MEAN CORPUSCULAR HGB CONC 32 g/dL (32-36); MEAN CORPUSCULAR VOLUME 93 fL (80-99); MEAN PLATELET VOLUME 9.7 fL (9.0-12.2); MONOCYTES # (AUTO) 0.4 10^3/uL (0.0-1.0); MONOCYTES % (AUTO) 5 % (0-12); NEUTROPHILS # (AUTO) 4.4 10^3/uL (1.8-7.8); NEUTROPHILS % (AUTO) 62 % (42-75); PLATELET COUNT 187 10^3/uL (130-400); WHITE BLOOD COUNT 7.1 10^3/uL (4.3-11.0)
[2020-09-08 13:19] LABS: ALBUMIN 4.4 GM/DL (3.2-4.5); POTASSIUM 3.6 MMOL/L (3.6-5.0)
[2020-09-08 13:20] LABS: CALCIUM 8.7 MG/DL (8.5-10.1)
[2020-09-08 13:22] LABS: INR 0.9 (0.8-1.4); PROTHROMBIN TIME PATIENT 12.8 SEC (12.2-14.7); TOTAL PROTEIN 7.2 GM/DL (6.4-8.2)
[2020-09-08 13:23] LABS: BILIRUBIN,TOTAL 0.7 MG/DL (0.1-1.0)
[2020-09-08 13:25] LABS: CREATININE SERUM 1.69 MG/DL (0.60-1.30)
[2020-09-08 13:28] LABS: MAGNESIUM 1.9 MG/DL (1.6-2.4)
[2020-09-08] MEDS ORDERED: HOLD METFORMIN - RECEIVED CONTRAST 20 ML VIAL IV SCH ×2 (13:45→14:15)
[2020-09-08] MEDS ORDERED: NS 100 ML (IVPB) BAG IV ONE ×2 (13:45→14:15)
[2020-09-08] MEDS ORDERED: CATHETER FLUSH 10 ML SYR IV PRN (13:45)
[2020-09-08] MEDS ORDERED: NS IV 1000 ML 1,000 ML IV SCH (13:45)
[2020-09-08] MEDS ORDERED: IOHEXOL 350 MG/ML 100 ML (OMNIPAQUE 350) VIAL IV ONE ×2 (13:45→14:15)
--- NOTE | 2020-09-08 13:56 | Diagnostic Imaging Report ---
INDICATION: Chest pain COMPARISON: 11/15/2018. FINDINGS: Single frontal view of the chest demonstrates normal heart size and pulmonary vascularity. The lungs are well aerated and clear. No large pleural effusion or pneumothorax is seen. The visualized osseous structures show no acute abnormalities. Sternotomy wires are noted. IMPRESSION: 1. No acute cardiopulmonary process. Dictated by: Dictated on workstation # [id number]
--- NOTE | 2020-09-08 15:25 | Diagnostic Imaging Report ---
PROCEDURE: CT angiography of the head and CT angiography of the neck with and without contrast. TECHNIQUE: Contiguous noncontrast images were obtained from the skull base through the vertex. After intravenous contrast administration, helical CT angiography of the neck was performed. Source data was reformatted into 3D MIP projections. Delayed post contrast acquisition was also obtained. Auto Exposure Controls were utilized during the CT exam to meet ALARA standards for radiation dose reduction. INDICATION: Left arm numbness. COMPARISON: I have no relevant comparison. FINDINGS: CT HEAD: Precontrast and delayed post contrast enhanced head CT was performed. There are patchy areas of periventricular white matter hypodensity, likely some chronic small vessel disease. There are vague areas of patchy hypodensity in the posteroinferior right cerebellar hemisphere, likely on a post ischemic basis and presumed old. No sulcal effacement. No evidence for an elevation of the intracranial pressures. There is no hemorrhage. No mass or mass effect. There is no hydrocephalus. After contrast, no abnormal parenchymal or meningeal enhancement was revealed. There is some chronic appearing paranasal sinus lobular membrane thickening. CT ANGIO NECK: The aortic arch is unremarkable. The branching pattern of the great vessels is normal. Soft plaque results in a moderate stenosis of the proximal left subclavian artery proximal to the takeoff of the left vertebral. The left vertebral occludes about 2 cm beyond its origin. The right vertebral artery is occluded at its origin. There is reestablishment of intraluminal flow within the distal left cervical vertebral at the level of the C3 superior endplate, presumed retrograde. There was intermittent faint partial intraluminal opacification of the distal right cervical vertebral but this was inconsistent. There is diffuse intimal thickening and soft as well as scattered hard plaques in the bilateral common carotids. The proximal left cervical internal carotid is narrowed by about 50% owing to mixed soft and hard plaque. The proximal right cervical internal carotid is narrowed by about 50% as well. The mid to distal cervical internal carotids are widely patent. CT ANGIO HEAD: There is patency of the atherosclerotic intradural left vertebral artery. There was some reconstitution of flow of the distal right intradural vertebral artery but it was small in caliber. The basilar is patent. There is flow in the bilateral MAGNAFLUX OPERATOR segments. The posterior communicating arteries are visualized but, while patent, are very small in caliber. The intracranial ICAs reveal cavernous mixed soft and hard plaque. The left cavernous carotid is narrowed by about 50% and the right less than 50% stenosed. The A1 segments, ACOM, and paired anterior cerebral arteries are widely patent. The bilateral middle cerebral arterial segments and primary branches are patent. No thrombus or large vessel occlusion is found. IMPRESSION: 1. Bilateral cervical vertebral occlusion with distal reconstitution, likely from other cervical collateral vessels. This acuity is indeterminate. There are some ischemic changes in the inferior right cerebellar hemisphere posteriorly which, by imaging, are more likely old but their precise acuity is indeterminate. 2. Cervical and intracranial carotid atherosclerotic disease with multiple segments of about 50% stenosis detailed above. No segmental occlusion. The anterior and middle cerebral arteries and their branches were patent. No LVO or thrombus. Dictated by: Dictated on workstation # [id number]
[2020-09-08] MEDS ORDERED: CLOPIDOGREL 300 MG (PLAVIX) TABLET PO ONE (16:15)
[2020-09-08 16:53] VITALS: BP 158/70
[2020-09-08] MEDS ORDERED: LACTATED RINGERS 1,000 ML IV ONE (17:42)
[2020-09-08] MEDS ORDERED: DOXE10CA29 PO (17:46)
[2020-09-08] MEDS ORDERED: PRAZ1CAP2 PO (17:46)
[2020-09-08] MEDS ORDERED: MINO2.5T PO (17:46)
[2020-09-08] MEDS ORDERED: CARV3.122 PO (17:46)
[2020-09-08] MEDS ORDERED: NITR0.4T39 SL (17:47)
[2020-09-08] MEDS: LACTATED RINGERS 1,000 ML IV SCH (17:56)
--- NOTE | 2020-09-08 18:11 | History & Physical-Hospitalist ---
History of Present Illness HPI/Chief Complaint CC: Left arm weakness with chest pain HPI: This is a 60yoWM clinic patient of mine who has a h/o CABG and Fem-pop bypass and COPD with HTN and current smoking who presents to the ER with left arm weakness and chest pain. Patient was found to have subtle elevation of troponin and evidence of cerebrovascular disease on CT angiogram of his brain without evidence of stroke. Patient was therefore admitted for cardiac risk stratification with Cardiology consultation. Source: patient Exam Limitations: no limitations Date Seen 09/08/20 Time Seen by a Provider: 13:30 Attending Physician Solange Henry DO PCP Solange Henry DO Referring Physician Date of Admission Sep 08, 2020 at 15:50 Home Medications & Allergies Home Medications Reviewed patient Home Medication Reconciliation performed by pharmacy medication reconciliations senior games technician and/or nursing. Patients Allergies have been reviewed. Allergies Allergies Coded Allergies No Known Drug Allergies (Juxprtcpmi27/3/11) Past Urdiuer-Chewvw-Bsscks Hx Past Med/Social Hx: Reviewed Nursing Past Med/Soc Hx, Reviewed and Corrections made Patient Social History Marrital Status: cohabiting Employed/Student: employed Alcohol Use: Denies Use Alcohol Beverage of Choice: Beer Recreational Drug Use: No Smoking Status: Current Everyday Smoker Type Used: Cigarettes Recent Foreign Travel: No Contact w/other who traveled: No Recent Hopitalizations: No Recent Infectious Disease Expo: No Immunizations Up To Date Tetanus Booster (TDap): Unknown Pediatric: No Date of Influenza Vaccine: Mar 16, 2020 Seasonal Allergies Seasonal Allergies: No Past Medical History Surgeries: Abdominal, Appendectomy, Cardiac, CABG, Coronary Stent, Vascular Surgery Respiratory: COPD, Pneumonia Currently Using CPAP: No Currently Using BIPAP: No Cardiac: Coronary Artery Disease, High Cholesterol, Hypertension, Peripheral Vascular Reproductive: No Sexually Transmitted Disease: No HIV/AIDS: No Genitourinary: Renal Failure Gastrointestinal: Abdominal Hernia Musculoskeletal: Arthritis, Chronic Back Pain Endocrine: Diabetes, Non-Insulin dep Hearing Impairment: Hard of Hearing History of Blood Disorders: No Adverse Reaction to Blood [place]: No Family History Cardiovascular disease 19 FATHER 19 MOTHER Deafness or hearing loss 19 FATHER Diabetes mellitus 19 FATHER 19 MOTHER FH: cancer Hypercholesterolemia 19 FATHER 19 MOTHER Hypertension 19 FATHER 19 MOTHER Myocardial infarction 19 FATHER 19 MOTHER No Pertinent Family Hx, CAD Over 55 Years Old, Diabetes, Hypertension Review of Systems Constitutional: see HPI, malaise, weakness Cardiovascular: chest pain Psychiatric/Neurological: Weakness Physical Exam Physical Exam Vital Signs Vital Signs - First Documented 09/08/20 12:45 Temp 35.9 Pulse 72 Resp 18 B/P (MAP) 186/88 (120) Pulse Ox 97 O2 Delivery Room Air Capillary Refill : Less Than 3 Seconds Height, Weight, BMI Height: 6'0.00" Weight: 170lbs. 7.0oz. 77.487224db; 31.97 BMI Method:Stated General Appearance: No Apparent Distress Eyes: Right Eye Normal Inspection, Right Eye PERRL HEENT: PERRL/EOMI, Normal ENT Inspection, Pharynx Normal, Moist Mucous Membranes Neck: Full Range of Motion, Normal Inspection, Non Tender Respiratory: Chest Non Tender, Lungs Clear, Normal Breath Sounds, No Accessory Muscle Use, No Respiratory Distress Cardiovascular: Regular Rate, Rhythm, No Edema, No Gallop, No JVD, No Murmur, Normal Peripheral Pulses Gastrointestinal: Normal Bowel Sounds, No Organomegaly, No Pulsatile Mass, Non Tender, Soft Back: Normal Inspection, No CVA Tenderness, No Vertebral Tenderness Extremity: Normal Capillary Refill, Normal Inspection, Normal Range of Motion, Non Tender, No Calf Tenderness, No Pedal Edema Neurologic/Psychiatric: Alert, Oriented x3, No Motor/Sensory Deficits, Normal Mood/Affect Skin: Normal Color, Warm/Dry Lymphatic: No Adenopathy Results Results/Procedures Labs Laboratory Tests 09/08/20 12:54 09/09/20 03:10 Patient resulted labs reviewed. Assessment/Plan Admission Diagnosis Assessment: Left arm weakness now resolving with cerebrovascular disease on CT angiogram without acute changes Elevated troponin CAD previous CABG PVD previous fem-pop bypass CRI HTN Smoker HLP Plan: Monitor closely Cardiology consultation Admission Status: Inpatient Order (span 2 midnights) Reason for Inpatient Admission: CVA versus NSTEMI Diagnosis/Problems Diagnosis/Problems (1) Chest pain Status: Acute (2) Hypertensive urgency Status: Chronic (3) Hx of CABG Status: Chronic (4) Smoker Status: Chronic (5) PVD (peripheral vascular disease) Status: Chronic (6) Renal insufficiency Status: Chronic (7) Hyperlipidemia Status: Chronic Clinical Quality Measures AMI/AHF: ASA po Prior to arrival: SOLANGE Tapia DO Sep 08, 2020 18:11
[2020-09-08] MEDS ORDERED: ACETAMINOPHEN 500 MG TAB (TYLENOL) PO PRN (18:15)
[2020-09-08] MEDS ORDERED: HYDROcodone/APAP 5 MG/325 MG (LORTAB) TAB PO PRN (18:15)
[2020-09-08] MEDS ORDERED: ONDANSETRON 4 MG/2 ML (SDV) Z0FRAN IVP PRN (18:15)
[2020-09-08] MEDS ORDERED: DOCUSATE SODIUM 100 MG (COLACE) CAP PO PRN (18:15)
[2020-09-08] MEDS ORDERED: NON-FORMULARY MEDICATION 1 EA EA (Doxylamine Succinate (Sleep Aid) 25 MG) PO PRN (18:15)
[2020-09-08] MEDS ORDERED: diphenhydrAMINE 25 MG TAB (BENADRYL) PO PRN (18:15)
[2020-09-08] MEDS ORDERED: LOPERAMIDE 2 MG (IMODIUM) TABLET PO PRN (18:15)
[2020-09-08] MEDS ORDERED: NITROGLYCERIN 0.4 MG SL TABS BTL 25'S SL PRN (18:15)
[2020-09-08] MEDS ORDERED: ALPRAZolam 0.25 MG (XANAX) TAB PO PRN (18:15)
[2020-09-08] MEDS ORDERED: CALCIUM CARBONATE 500 MG (TUMS) TAB.CHEW PO PRN (18:15)
[2020-09-08] MEDS ORDERED: morphine INJ 10 MG/ML 1ML (SYR OR VIAL) IVP PRN (18:15)
[2020-09-08] MEDS ORDERED: ENOXAPARIN 300 MG/3 ML (LOVENOX) MULTI-DOSE VIAL SQ NR (19:00)
[2020-09-08] MEDS: SENNA W/DOCUSATE (SENOKOT S) TABLET PO SCH (20:18)
[2020-09-08] MEDS: CARVEDILOL 3.125 MG (COREG) TABLET PO SCH (20:19)
[2020-09-08] MEDS: MELATONIN 3 MG TABLET PO PRN (20:19)
[2020-09-08] MEDS ORDERED: DOXEPIN 10 MG (SINEquan) CAP PO SCH (21:00)
[2020-09-09] MEDS: LACTATED RINGERS 1,000 ML IV SCH ×3 (04:49→16:05)
[2020-09-09 06:19] LABS: BASOPHILS % (AUTO) 0 % (0-10); EOSINOPHILS # (AUTO) 0.1 10^3/uL (0.0-0.3); EOSINOPHILS % (AUTO) 2 % (0-10); HEMATOCRIT 50 % (40-54); HEMOGLOBIN 15.8 g/dL (13.3-17.7); LYMPHOCYTES # (AUTO) 2.3 10^3/uL (1.0-4.0); LYMPHOCYTES % (AUTO) 30 % (12-44); MEAN CORPUSCULAR HEMOGLOBIN 30 pg (25-34); MEAN CORPUSCULAR HGB CONC 32 g/dL (32-36); MEAN CORPUSCULAR VOLUME 95 fL (80-99); MEAN PLATELET VOLUME 10.3 fL (9.0-12.2); MONOCYTES # (AUTO) 0.4 10^3/uL (0.0-1.0); MONOCYTES % (AUTO) 6 % (0-12); NEUTROPHILS # (AUTO) 4.8 10^3/uL (1.8-7.8); NEUTROPHILS % (AUTO) 62 % (42-75); PLATELET COUNT 197 10^3/uL (130-400); WHITE BLOOD COUNT 7.6 10^3/uL (4.3-11.0)
[2020-09-09 06:34] LABS: ALBUMIN 4.1 GM/DL (3.2-4.5); POTASSIUM 3.9 MMOL/L (3.6-5.0)
[2020-09-09 06:35] LABS: CALCIUM 9.1 MG/DL (8.5-10.1)
[2020-09-09 06:36] LABS: TOTAL PROTEIN 6.9 GM/DL (6.4-8.2)
[2020-09-09 06:38] LABS: BILIRUBIN,TOTAL 0.6 MG/DL (0.1-1.0)
[2020-09-09 06:40] LABS: CREATININE SERUM 1.69 MG/DL (0.60-1.30)
--- NOTE | 2020-09-09 08:00 | Progress Note - Hospitalist ---
Subjective HPI/CC On Admission Date Seen by Provider: Sep 09, 2020 Time Seen by Provider: 11:00 Subjective/Events-last exam Patient having no left arm weakness or CP No pain reported Elevated troponin noted Dr Xiong recommended cath and patient was debating leaving AMA BP good Home meds maintained Creat 1.6 is stable Review of Systems General: Fatigue, Malaise Cardiovascular: Chest Pain Objective Exam Vital Signs Vital Signs Date Time Temp Pulse Resp B/P (MAP) Pulse Ox O2 Delivery O2 Flow Rate FiO2 09/09/20 16:00 65 174/81 (112) 91 Room Air 09/09/20 15:52 36.6 09/08/20 16:53 17 Capillary Refill : Less Than 3 Seconds General Appearance: No Apparent Distress, WD/WN, Chronically ill Respiratory: Lungs Clear Cardiovascular: Regular Rate, Rhythm Neurologic/Psychiatric: Alert, Oriented x3, No Motor/Sensory Deficits, Normal Mood/Affect Results/Procedures Lab Laboratory Tests 09/09/20 03:10 Patient resulted labs reviewed. Assessment/Plan Assessment and Plan Assess & Plan/Chief Complaint Assessment: Left arm weakness now resolving with cerebrovascular disease on CT angiogram without acute changes Elevated troponin CAD previous CABG PVD previous fem-pop bypass CRI HTN Smoker HLP Plan: Monitor closely Cardiology consultation 09/09/20: Monitor closely Cath tomorrow Stop smoking Clinical Quality Measures AMI/AHF: ASA po Prior to arrival: YINA Tapia DO Sep 09, 2020 08:00
[2020-09-09] MEDS: ASPIRIN 81 MG CHEW (CHILDREN'S ASA) PO SCH (08:06)
[2020-09-09] MEDS: SIMvastatin 10 MG (ZOCOR) TAB PO SCH (08:06)
[2020-09-09] MEDS: CARVEDILOL 3.125 MG (COREG) TABLET PO SCH ×2 (08:06→20:02)
[2020-09-09] MEDS: amLODIPine 10 MG (NORVASC) TAB PO SCH (08:06)
[2020-09-09] MEDS: SENNA W/DOCUSATE (SENOKOT S) TABLET PO SCH ×2 (08:07→20:03)
[2020-09-09] MEDS: CLOPIDOGREL 75 MG (PLAVIX) TABLET PO SCH ×2 (08:07)
[2020-09-09] MEDS: ASPIRIN E.C. 81 MG (ECOTRIN) TAB PO SCH (08:07)
[2020-09-09] MEDS ORDERED: MINOXIDIL 2.5 MG PO SCH (09:00)
[2020-09-09] MEDS ORDERED: PRAZOSIN 1 MG CAPSULE (MINIPRESS) NON-FORMULARY PO SCH (09:00)
--- NOTE | 2020-09-09 12:43 | Discharge Summary ---
Discharge Summary Hospital Course Hospital Course Date of Admission: Sep 08, 2020 at 15:50 Admission Diagnosis : Family Physician/Provider: Solange Henry DO Date of Discharge: 09/09/20 Discharge Diagnosis: [ ] Hospital Course: [ ] Labs and Pending Lab Test: Laboratory Tests 09/08/20 12:54: White Blood Count 7.1, Red Blood Count 5.21, Hemoglobin 15.5, Hematocrit 48, Mean Corpuscular Volume 93, Mean Corpuscular Hemoglobin 30, Mean Corpuscular Hemoglobin Concent 32, Red Cell Distribution Width 14.4, Platelet Count 187, Mean Platelet Volume 9.7, Immature Granulocyte % (Auto) 0, Neutrophils (%) (Auto) 62, Lymphocytes (%) (Auto) 31, Monocytes (%) (Auto) 5, Eosinophils (%) (Auto) 2, Basophils (%) (Auto) 1, Neutrophils # (Auto) 4.4, Lymphocytes # (Auto) 2.2, Monocytes # (Auto) 0.4, Eosinophils # (Auto) 0.2, Basophils # (Auto) 0.0, Immature Granulocyte # (Auto) 0.0, Prothrombin Time 12.8, INR Comment 0.9, Activated Partial Thromboplast Time 36H, Sodium Level 137, Potassium Level 3.6, Chloride Level 103, Carbon Dioxide Level 23, Anion Gap 11, Blood Urea Nitrogen 12, Creatinine 1.69H, Estimat Glomerular Filtration Rate 41, BUN/Creatinine Ratio 7, Glucose Level 132H, Calcium Level 8.7, Corrected Calcium 8.4L, Magnesium Level 1.9, Total Bilirubin 0.7, Aspartate Amino Transf (AST/SGOT) 25, Alanine Aminotransferase (ALT/SGPT) 25, Alkaline Phosphatase 102, Myoglobin 169.3H, Troponin I 0.042H, B-Type Natriuretic Peptide 130.2H, Total Protein 7.2, Albumin 4.4 09/08/20 17:58: Troponin I 0.043H 09/09/20 03:00: Troponin I 0.047H, Triglycerides Level 267H, Cholesterol Level 132, LDL Cholesterol Direct 83, VLDL Cholesterol 53H, HDL Cholesterol 27L 09/09/20 03:10: White Blood Count 7.6, Red Blood Count 5.26, Hemoglobin 15.8, Hematocrit 50, Mean Corpuscular Volume 95, Mean Corpuscular Hemoglobin 30, Mean Corpuscular Hemoglobin Concent 32, Red Cell Distribution Width 14.5, Platelet Count 197, Mean Platelet Volume 10.3, Immature Granulocyte % (Auto) 0, Neutrophils (%) (Auto) 62, Lymphocytes (%) (Auto) 30, Monocytes (%) (Auto) 6, Eosinophils (%) (Auto) 2, Basophils (%) (Auto) 0, Neutrophils # (Auto) 4.8, Lymphocytes # (Auto) 2.3, Monocytes # (Auto) 0.4, Eosinophils # (Auto) 0.1, Basophils # (Auto) 0.0, Immature Granulocyte # (Auto) 0.0, Sodium Level 140, Potassium Level 3.9, Chloride Level 106, Carbon Dioxide Level 22, Anion Gap 12, Blood Urea Nitrogen 12, Creatinine 1.69H, Estimat Glomerular Filtration Rate 41, BUN/Creatinine Ratio 7, Glucose Level 114H, Calcium Level 9.1, Corrected Calcium 9.0, Total Bilirubin 0.6, Aspartate Amino Transf (AST/SGOT) 26, Alanine Aminotransferase (ALT/SGPT) 27, Alkaline Phosphatase 109, Total Protein 6.9, Albumin 4.1 Home Meds Active Reported Nitroglycerin 0.4 Mg Tab.subl 0.4 Mg SL UD PRN 1 TAB SL Q 5 MINS X3 DOSES Prazosin HCl 1 Mg Capsule 1 Mg PO DAILY Minoxidil 2.5 Mg Tablet 2.5 Mg PO DAILY Doxepin HCl 10 Mg Capsule 10 Mg PO HS Carvedilol 3.125 Mg Tablet 3.125 Mg PO BID Sleep Aid (Doxylamine Succinate) 25 Mg Tablet 25 Mg PO HS PRN Aspirin EC (Aspirin) 81 Mg Tablet.dr 81 Mg PO DAILY Amlodipine Besylate 10 Mg Tablet 10 Mg PO DAILY Pravastatin Sodium 20 Mg Tablet 20 Mg PO DAILY Plavix (Clopidogrel Bisulfate) 75 Mg Tablet 75 Mg PO DAILY Discharge Physical Examination Vital Signs Vital Signs Date Time Temp Pulse Resp B/P (MAP) Pulse Ox O2 Delivery O2 Flow Rate FiO2 09/09/20 12:09 37.1 09/09/20 08:32 95 Room Air 09/09/20 08:00 71 179/92 (121) 09/08/20 16:53 17 Allergies: Coded Allergies: No Known Drug Allergies (Unverified , 03/18/11) Discharge Summary Date of Admission Sep 08, 2020 at 15:50 Date of Discharge Discharge Date: Sep 09, 2020 Clinical Quality Measures AMI/AHF: ASA po Prior to arrival: SOLANGE Tapia DO Sep 09, 2020 12:43
[2020-09-09] MEDS ORDERED: PATIENT MAY USE OWN MEDS, ALL MC SCH (16:15)
[2020-09-09] MEDS: MELATONIN 3 MG TABLET PO PRN (20:02)
--- NOTE | 2020-09-09 20:30 | Consultation-Cardiology ---
HPI-Cardiology Cardiology Consultation: Date of Consultation 09/09/20 Date of Admission Attending Physician Solange Henry DO Admitting Physician Solange Henry DO Consulting Physician Vidya XIONG MD HPI: Time Seen by a Provider: 14:30 Chief Complaint: chest pain this is a 60 year old male with history of CABG, CAD, PCI, CKD, active smoking. who presents with chest discomfort. He was found to have borderline positive troponin. 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, No ear discharge, No ear pain, No nasal drainage, No ulcerations Respiratory: No no symptoms reported; As described under HPI; No As described under HPI, No cough, No orthopnea, No shortness of breath, No SOB with excertion Cardiovascular: No no symptoms reported; As described under HPI; No As described under HPI; chest pain; No edema, No irregular heart rate, No lightheadedness, No palpitations Gastrointestinal: No no symptoms reported, No As described under HPI, No abdomen distended, No abdominal pain, No blood streaked bowels, No constipation, No diarrhea, No nausea, No vomiting, No stool coloration changes Genitourinary: No As described under HPI, No burning, No dysuria, No discharge, No frequency, No flank pain, No hematuria, No urgency Skin: No rash, No skin related problems, No ulcerations Psychiatric/Neurological: No anxiety, No depression, No seizure, No focal weakness, No syncope Hematologic: No bleeding abnormalities [id number] Hx Patient Social History Marrital Status: cohabiting Employed/Student: employed Smoking Status: Current Everyday Smoker Have you traveled recently?: No Alcohol Use?: No Pt feels they are or have been: No Tobacco type used: Cigarettes Immunizations Up To Date Tetanus Booster (TDap): Unknown Date of Influenza Vaccine: Mar 16, 2020 Past Medical History PMH As described under Assessment. Family Medical History Family History: Cardiovascular disease 19 FATHER 19 MOTHER Deafness or hearing loss 19 FATHER Diabetes mellitus 19 FATHER 19 MOTHER FH: cancer Hypercholesterolemia 19 FATHER 19 MOTHER Hypertension 19 FATHER 19 MOTHER Myocardial infarction 19 FATHER 19 MOTHER Allergies and Home Medications Allergies Coded Allergies: No Known Drug Allergies (Unverified , 03/18/11) Home Medications Amlodipine Besylate 10 Mg Tablet, 10 MG PO DAILY, (Reported) Aspirin 81 Mg Tablet.dr, 81 MG PO DAILY, (Reported) Carvedilol 3.125 Mg Tablet, 3.125 MG PO BID, (Reported) Clopidogrel Bisulfate 75 Mg Tablet, 75 MG PO DAILY, (Reported) Doxepin HCl 10 Mg Capsule, 10 MG PO HS, (Reported) Doxylamine Succinate 25 Mg Tablet, 25 MG PO HS PRN for INSOMNIA, (Reported) Minoxidil 2.5 Mg Tablet, 2.5 MG PO DAILY, (Reported) Nitroglycerin 0.4 Mg Tab.subl, 0.4 MG SL UD PRN for CHEST PAIN, (Reported) 1 TAB SL Q 5 MINS X3 DOSES Pravastatin Sodium 20 Mg Tablet, 20 MG PO DAILY, (Reported) Prazosin HCl 1 Mg Capsule, 1 MG PO DAILY, (Reported) Patient Home Medication List Home Medication List Reviewed: Yes Physical Exam-Cardiology Physical Exam Vital Signs/I&O 09/10/20 09/10/20 09/10/20 09/10/20 13:30 13:45 14:00 14:15 Pulse 63 57 57 53 B/P (MAP) 164/80 (96) 147/90 (109) 147/83 (97) Pulse Ox 94 94 94 O2 Delivery Room Air Room Air Room Air 09/10/20 09/10/20 09/10/20 09/10/20 14:30 14:45 15:00 15:43 Temp 36.6 Pulse 52 55 57 B/P (MAP) 152/84 (104) 162/83 (113) 152/83 (106) Pulse Ox 90 93 93 O2 Delivery Room Air Room Air Room Air 09/10/20 09/10/20 09/10/20 09/10/20 16:00 17:00 19:00 19:29 Temp 37.0 Pulse 56 63 67 B/P (MAP) 165/81 (109) 124/72 (89) Pulse Ox 91 92 O2 Delivery Room Air Room Air 09/10/20 00:00 Intake Total 2350 ml Output Total 2250 ml Balance 100 ml Capillary Refill : Less Than 3 Seconds Constitutional: appears stated age; No apparent distress; well-developed, well- nourished HEENT: PERRL; No discharge; hearing is well preserved, oral hygience is good; No ulceration, No xanthelasmas are seen Neck: No carotid bruit; carotid pulses are 2 + bilaterally Respiratory: chest is bilaterally symmetric, lungs clear to auscultation Cardiovascular: regular rate-rhythm, S1 and S2 Gastrointestinal: soft, audible bowel sounds; No spleenomegaly Rectal: deferred Extremities: No clubbing, No cyanosis; no lower extremity edema bilateral; No significant edema Neurologic/Psychiatric: no motor/sensory deficits, alert, normal mood/affect, oriented x 3, power is 5/5 both on sides Skin: No rash, No ulcerations Data Review Labs Laboratory Tests 09/10/20 06:03: White Blood Count 7.0, Red Blood Count 5.34, Hemoglobin 16.2, Hematocrit 50, Mean Corpuscular Volume 93, Mean Corpuscular Hemoglobin 30, Mean Corpuscular Hemoglobin Concent 33, Red Cell Distribution Width 14.3, Platelet Count 178, Mean Platelet Volume 9.6, Immature Granulocyte % (Auto) 0, Neutrophils (%) (Aut o) 63, Lymphocytes (%) (Auto) 29, Monocytes (%) (Auto) 5, Eosinophils (%) (Auto) 2, Basophils (%) (Auto) 1, Neutrophils # (Auto) 4.4, Lymphocytes # (Auto) 2.0, Monocytes # (Auto) 0.4, Eosinophils # (Auto) 0.2, Basophils # (Auto) 0.0, Immature Granulocyte # (Auto) 0.0, Sodium Level 139, Potassium Level 3.9, Chloride Level 106, Carbon Dioxide Level 24, Anion Gap 9, Blood Urea Nitrogen 12, Creatinine 1.67H, Estimat Glomerular Filtration Rate 42, BUN/Creatinine Ratio 7, Glucose Level 112H, Calcium Level 9.0, Corrected Calcium 8.9, Total Bilirubin 0.7, Aspartate Amino Transf (AST/SGOT) 17, Alanine Aminotransferase (ALT/SGPT) 20, Alkaline Phosphatase 104, Total Protein 6.7, Albumin 4.1 A/P-Cardiology Assessment/Admission Diagnosis Chest pain with borderline positive troponin, CKD, active smoking, CABG Plan - coronary angiography recommended. Initially the patient was not willing and only wanted to get it done with Dr Arteaga. I told him that Dr Arteaga will be back on friday. Patient is also not agreeing to nuclear stress testing. He wants to go home and says that he can follow up with Dr Arteaga as outpatient. I have recommended either an inpatient coronary angiography or nuclear stress testing. the patient discussed with his and finally agreed to proceed. - CKD - IV fluids. - Active smoking - strongly recommended to quit. - history of CABG and PCI - needs to be on dual antiplatelet therapy for now. Thank you for your consultation. Please call me if you have any questions. Shon Xiong MD, FACP, FACC, FSCAI, FHRS, CCDS Interventional Cardiology Cardiac Electrophysiology Vascular Medicine and Endovascular Interventions Clinical Quality Measures AMI/AHF: ASA po Prior to arrival: Vidya Jean Baptiste MD Sep 09, 2020 20:30
[2020-09-09] MEDS ORDERED: DOXEPIN 10 MG (SINEquan) CAP PO SCH (21:00)
[2020-09-09] MEDS ORDERED: cloNIDine 0.1 MG (CATAPRES) TAB PO PRN (21:15)
[2020-09-10 06:11] LABS: BASOPHILS % (AUTO) 1 % (0-10); EOSINOPHILS # (AUTO) 0.2 10^3/uL (0.0-0.3); EOSINOPHILS % (AUTO) 2 % (0-10); HEMATOCRIT 50 % (40-54); HEMOGLOBIN 16.2 g/dL (13.3-17.7); LYMPHOCYTES % (AUTO) 29 % (12-44); MEAN CORPUSCULAR HEMOGLOBIN 30 pg (25-34); MEAN CORPUSCULAR HGB CONC 33 g/dL (32-36); MEAN CORPUSCULAR VOLUME 93 fL (80-99); MEAN PLATELET VOLUME 9.6 fL (9.0-12.2); MONOCYTES # (AUTO) 0.4 10^3/uL (0.0-1.0); MONOCYTES % (AUTO) 5 % (0-12); NEUTROPHILS # (AUTO) 4.4 10^3/uL (1.8-7.8); NEUTROPHILS % (AUTO) 63 % (42-75); PLATELET COUNT 178 10^3/uL (130-400)
[2020-09-10 06:27] LABS: ALBUMIN 4.1 GM/DL (3.2-4.5); POTASSIUM 3.9 MMOL/L (3.6-5.0)
[2020-09-10 06:30] LABS: TOTAL PROTEIN 6.7 GM/DL (6.4-8.2)
[2020-09-10 06:32] LABS: BILIRUBIN,TOTAL 0.7 MG/DL (0.1-1.0)
[2020-09-10 06:34] LABS: CREATININE SERUM 1.67 MG/DL (0.60-1.30)
--- NOTE | 2020-09-10 07:18 | Progress Note - Hospitalist ---
Subjective HPI/CC On Admission Date Seen by Provider: Sep 10, 2020 CC: Left arm weakness with chest pain HPI: This is a 60yoWM clinic patient of mine who has a h/o CABG and Fem-pop bypass and COPD with HTN and current smoking who presents to the ER with left arm weakness and chest pain. Patient was found to have subtle elevation of troponin and evidence of cerebrovascular disease on CT angiogram of his brain without evidence of stroke. Patient was therefore admitted for cardiac risk stratification with Cardiology consultation. Objective Exam Vital Signs Vital Signs Date Time Temp Pulse Resp B/P (MAP) Pulse Ox O2 Delivery O2 Flow Rate FiO2 09/10/20 17:00 63 124/72 (89) 92 Room Air 09/10/20 15:43 36.6 09/08/20 16:53 17 Capillary Refill : Less Than 3 Seconds Results/Procedures Lab Laboratory Tests 09/10/20 06:03 Patient resulted labs reviewed. Assessment/Plan Assessment and Plan Assess & Plan/Chief Complaint Assessment: Left arm weakness now resolving with cerebrovascular disease on CT angiogram without acute changes Elevated troponin CAD previous CABG PVD previous fem-pop bypass CRI HTN Smoker HLP Plan: Monitor closely Cardiology consultation 09/09/20: Monitor closely Cath tomorrow Stop smoking Diagnosis/Problems Diagnosis/Problems (1) Chest pain Status: Acute (2) Hypertensive urgency Status: Chronic (3) Hx of CABG Status: Chronic (4) Smoker Status: Chronic (5) PVD (peripheral vascular disease) Status: Chronic (6) Renal insufficiency Status: Chronic (7) Hyperlipidemia Status: Chronic Clinical Quality Measures AMI/AHF: ASA po Prior to arrival: YINA Tapia DO Sep 10, 2020 07:18
[2020-09-10] MEDS: SIMvastatin 10 MG (ZOCOR) TAB PO SCH (08:00)
[2020-09-10] MEDS: amLODIPine 10 MG (NORVASC) TAB PO SCH (08:00)
[2020-09-10] MEDS: ASPIRIN 81 MG CHEW (CHILDREN'S ASA) PO SCH (08:00)
[2020-09-10] MEDS: CARVEDILOL 3.125 MG (COREG) TABLET PO SCH (08:00)
[2020-09-10] MEDS: CLOPIDOGREL 75 MG (PLAVIX) TABLET PO SCH ×2 (08:00→09:58)
[2020-09-10] MEDS ORDERED: PRAZOSIN 1 MG CAPSULE (MINIPRESS) NON-FORMULARY PO SCH (09:00)
[2020-09-10] MEDS ORDERED: [UNRECOGNIZED DRUG - REMARK] PO SCH (09:00)
[2020-09-10] MEDS: SENNA W/DOCUSATE (SENOKOT S) TABLET PO SCH (09:58)
[2020-09-10] MEDS: ASPIRIN E.C. 81 MG (ECOTRIN) TAB PO SCH (09:58)
[2020-09-10] MEDS: LACTATED RINGERS 1,000 ML IV SCH (10:03)
[2020-09-10] MEDS ORDERED: fentaNYL INJ 100 MCG/2 ML AMP ONE ×2 (11:11→12:49)
[2020-09-10] MEDS ORDERED: MIDAZOLAM 5 MG/5 ML (VERSED) VIAL ONE (11:11)
[2020-09-10] MEDS ORDERED: NS IV 1000 ML 0 ML ONE (11:11)
[2020-09-10] MEDS ORDERED: LIDOCAINE 2% 20 ML (XYLOCAINE) VIAL ONE (11:11)
[2020-09-10] MEDS ORDERED: LIDOCAINE 1% INJ 20 ML 20 ML VIAL ONE (11:12)
[2020-09-10] MEDS ORDERED: HEParin (CATH LAB) 2,000 ML IV ONE (11:13)
--- NOTE | 2020-09-10 13:06 | Coronary Angiography Report ---
Coronary Angiography Report DATE OF PROCEDURE: 09/10/20 INDICATION: chest pain with borderline positive troponin. PREOPERATIVE DIAGNOSIS: chest pain with positive troponin POSTOPERATIVE DIAGNOSIS: Severe three vessel disease, no PCI HISTORY: This is 60 year old male with CABG, CAD, PCI, CKD, active smoking who presents with chest discomfort. Borderline positive troponin. Therefore, the patient was scheduled for coronary angiography. PROCEDURES PERFORMED: 1.Coronary angiography. 2.Left heart catheterization. 3. Aortic arch angiography - medical necessity; to evaluate for bypass grafts and also for the ostium of the left subclavian artery. 4. MATTSON angiography. 5. SVG angiography COMPLICATIONS: None. SPECIMENS: None. ESTIMATED BLOOD LOSS: 10 mL ANESTHESIA: Conscious sedation ANTICOAGULATION: none CONTRAST: 99 ml FLUOROSCOPY: 13.6 minutes FLOUROSCOPY DOSE: 746 mgy. PROCEDURE DETAILS: The patient is a 60 male and was brought to the corn lab technician after informed consent was taken. All the risks and complications were explained in detail; this included the risk of bleeding, vascular damage, stroke, ID and even . The patient was draped and prepped in the usual sterile fashion. Access was gained in the right femoral artery with difficulty due to significant calcification with a 6 Wallisian sheath. Coronary angiography and left heart catheterization was performed with the JR4, JL4 FINDINGS: 1.Left main: severe distal stenosis , stenosis severity atleast 80%. 2.LAD: occluded proximal/mid segment 3.Left circumflex artery: patent av groove artery. occluded ramus artery. 4.RCA: occluded proximal segement. supplied by left to right collaterals. 5.Left heart catheterization: LV 158/13. LVEDP 25mmhg. Aortic pressure 144/72mmhg. Normal LV function with no gradient across the aortic valve. 6. Patent MATTSON to the LAD. 7. Patent SVG to the Ramus/OM1 8. chronically occluded graft to the RPDA. 9. Aortic arch angiogram: no evidence of anuerysm or dissection. CONCLUSIONS: 1. Severe [place] LM and three vessel disease with patent MATTSON to the LAD and SVG to the Ramus/OM1. Known occluded graft to the RPDA. Occluded RCA, supplied by left to right collaterals. 2. Difficult access in the right femoral artery due to significant calcification - manual compression done. 3. Continue aggressive secondary prevention measures. 4. IV fluids for CKD Shon Xiong MD, FACP, FACC, [facility] Interventional Cardiology Vidya XIONG MD Sep 10, 2020 13:06
--- NOTE | 2020-09-10 13:06 | Cardiology Progress Note ---
Cardiology SOAP Progress Note Subjective: no chest pain Objective: I&O/Vital Signs 09/10/20 09/10/20 09/10/20 09/10/20 13:30 13:45 14:00 14:15 Pulse 63 57 57 53 B/P (MAP) 164/80 (96) 147/90 (109) 147/83 (97) Pulse Ox 94 94 94 O2 Delivery Room Air Room Air Room Air 09/10/20 09/10/20 09/10/20 09/10/20 14:30 14:45 15:00 15:43 Temp 36.6 Pulse 52 55 57 B/P (MAP) 152/84 (104) 162/83 (113) 152/83 (106) Pulse Ox 90 93 93 O2 Delivery Room Air Room Air Room Air 09/10/20 09/10/20 09/10/20 09/10/20 16:00 17:00 19:00 19:29 Temp 37.0 Pulse 56 63 67 B/P (MAP) 165/81 (109) 124/72 (89) Pulse Ox 91 92 O2 Delivery Room Air Room Air 09/10/20 00:00 Intake Total 2350 ml Output Total 2250 ml Balance 100 ml Weight (Pounds): 170 Weight (Ounces): 7.0 Weight (Calculated Kilograms): 77.443451 Constitutional: AAO x 3 Respiratory: chest is bilaterally symmetric, lungs clear to auscultation Cardiovascular: regular rate-rhythm, S1 and S2 Gastrointestional: soft, audible bowel sounds Extremities: no lower extremity edema bilateral Neurologic/Psychiatric: no motor/sensory deficits, alert, normal mood/affect, oriented x 3 Skin: normal color Results/Procedures: Labs Laboratory Tests 09/10/20 06:03: White Blood Count 7.0, Red Blood Count 5.34, Hemoglobin 16.2, Hematocrit 50, Mean Corpuscular Volume 93, Mean Corpuscular Hemoglobin 30, Mean Corpuscular Hemoglobin Concent 33, Red Cell Distribution Width 14.3, Platelet Count 178, Mean Platelet Volume 9.6, Immature Granulocyte % (Auto) 0, Neutrophils (%) (Auto) 63, Lymphocytes (%) (Auto) 29, Monocytes (%) (Auto) 5, Eosinophils (%) (Auto) 2, Basophils (%) (Auto) 1, Neutrophils # (Auto) 4.4, Lymphocytes # (Auto) 2.0, Monocytes # (Auto) 0.4, Eosinophils # (Auto) 0.2, Basophils # (Auto) 0.0, Immature Granulocyte # (Auto) 0.0, Sodium Level 139, Potassium Level 3.9, Chloride Level 106, Carbon Dioxide Level 24, Anion Gap 9, Blood Urea Nitrogen 12, Creatinine 1.67H, Estimat Glomerular Filtration Rate 42, BUN/Creatinine Ratio 7, Glucose Level 112H, Calcium Level 9.0, Corrected Calcium 8.9, Total Bilirubin 0.7, Aspartate Amino Transf (AST/SGOT) 17, Alanine Aminotransferase (ALT/SGPT) 20, Alkaline Phosphatase 104, Total Protein 6.7, Albumin 4.1 A/P: Assessment/Dx: Chest pain with borderline positive troponin, CKD, active smoking, CABG Plan: - coronary angiography recommended. Initially the patient was not willing and only wanted to get it done with Dr Arteaga. I told him that Dr Arteaga will be back on friday. Patient is also not agreeing to nuclear stress testing. He wants to go home and says that he can follow up with Dr Arteaga as outpatient. I have recommended either an inpatient coronary angiography or nuclear stress testing. the patient discussed with his and finally agreed to proceed. coronary angiography is planned for today. - CKD - IV fluids. - Active smoking - strongly recommended to quit. - history of CABG and PCI - needs to be on dual antiplatelet therapy for now. Thank you for your consultation. Please call me if you have any questions. Shon Xiong MD, FACP, FACC, FSCAI, FHRS, CCDS Interventional Cardiology Cardiac Electrophysiology Vascular Medicine and Endovascular Interventions Clinical Quality Measures AMI/AHF: ASA po Prior to arrival: Vidya Jean Baptiste MD Sep 10, 2020 13:06
[2020-09-10] MEDS ORDERED: PATIENT MAY USE OWN MEDS, ALL PO SCH (13:15)
[2020-09-10] MEDS: NS IV 1000 ML 1,000 ML IV SCH ×2 (14:25→18:12)
--- NOTE | 2020-09-10 19:03 | Discharge Summary ---
Discharge Summary Hospital Course Was the Problem List Reviewed?: Yes Problems/Dx: (1) Chest pain Status: Acute (2) Hypertensive urgency Status: Chronic (3) Hx of CABG Status: Chronic (4) Smoker Status: Chronic (5) PVD (peripheral vascular disease) Status: Chronic (6) Renal insufficiency Status: Chronic (7) Hyperlipidemia Status: Chronic Hospital Course Date of Admission: Sep 08, 2020 at 15:50 Admission Diagnosis : Family Physician/Provider: Solange Henry DO Date of Discharge: 09/10/20 Discharge Diagnosis: chest pain, left arm weakness, cerebrovascular disease on CT angiogram with collateral supply, smoker, COPD, PVD Hospital Course: Short course after admitted for CVA r/o with left arm weakness and elevated troponin. Patient had home meds restarted and Cardiology consulted. Cath recommended and patient underwent that procedure revealing no significant stenosis so he was DC in improved condition. IVF given for CRI s/p CT contrast and cath contrast and remained stable. Smoking cessation high recommended. Labs and Pending Lab Test: Laboratory Tests 09/10/20 06:03: White Blood Count 7.0, Red Blood Count 5.34, Hemoglobin 16.2, Hematocrit 50, Mean Corpuscular Volume 93, Mean Corpuscular Hemoglobin 30, Mean Corpuscular Hemoglobin Concent 33, Red Cell Distribution Width 14.3, Platelet Count 178, Mean Platelet Volume 9.6, Immature Granulocyte % (Auto) 0, Neutrophils (%) (Auto) 63, Lymphocytes (%) (Auto) 29, Monocytes (%) (Auto) 5, Eosinophils (%) (Auto) 2, Basophils (%) (Auto) 1, Neutrophils # (Auto) 4.4, Lymphocytes # (Auto) 2.0, Monocytes # (Auto) 0.4, Eosinophils # (Auto) 0.2, Basophils # (Auto) 0.0, Immature Granulocyte # (Auto) 0.0, Sodium Level 139, Potassium Level 3.9, Chloride Level 106, Carbon Dioxide Level 24, Anion Gap 9, Blood Urea Nitrogen 12, Creatinine 1.67H, Estimat Glomerular Filtration Rate 42, BUN/Creatinine Ratio 7, Glucose Level 112H, Calcium Level 9.0, Corrected Calcium 8.9, Total Bilirubin 0.7, Aspartate Amino Transf (AST/SGOT) 17, Alanine Aminotransferase (ALT/SGPT) 20, Alkaline Phosphatase 104, Total Protein 6.7, Albumin 4.1 Home Meds Active Reported Nitroglycerin 0.4 Mg Tab.subl 0.4 Mg SL UD PRN 1 TAB SL Q 5 MINS X3 DOSES Prazosin HCl 1 Mg Capsule 1 Mg PO DAILY Minoxidil 2.5 Mg Tablet 2.5 Mg PO DAILY Doxepin HCl 10 Mg Capsule 10 Mg PO HS Carvedilol 3.125 Mg Tablet 3.125 Mg PO BID Sleep Aid (Doxylamine Succinate) 25 Mg Tablet 25 Mg PO HS PRN Aspirin EC (Aspirin) 81 Mg Tablet. 81 Mg PO DAILY Amlodipine Besylate 10 Mg Tablet 10 Mg PO DAILY Pravastatin Sodium 20 Mg Tablet 20 Mg PO DAILY Plavix (Clopidogrel Bisulfate) 75 Mg Tablet 75 Mg PO DAILY Assessment/Pt Instructions Dr Henry in 1 week Discharge Planning: <30 minutes discharge planning Discharge Instructions Discharge Diet: Cardiac Diet Activity as Tolerated: Yes Discharge Physical Examination Vital Signs Vital Signs Date Time Temp Pulse Resp B/P (MAP) Pulse Ox O2 Delivery O2 Flow Rate FiO2 09/10/20 17:00 63 124/72 (89) 92 Room Air 09/10/20 15:43 36.6 09/08/20 16:53 17 General Appearance: No Apparent Distress, WD/WN Respiratory: Lungs Clear Cardiovascular: Regular Rate, Rhythm Skin: Normal Color, Warm/Dry Allergies: Coded Allergies: No Known Drug Allergies (Unverified , 03/18/11) Discharge Summary Date of Admission Sep 08, 2020 at 15:50 Date of Discharge Discharge Date: Sep 10, 2020 Admission Diagnosis Assessment: Left arm weakness now resolving with cerebrovascular disease on CT angiogram without acute changes Elevated troponin CAD previous CABG PVD previous fem-pop bypass CRI HTN Smoker HLP Plan: Monitor closely Cardiology consultation Discharge Diagnosis Assessment: Left arm weakness now resolving with cerebrovascular disease on CT angiogram without acute changes Elevated troponin CAD previous CABG PVD previous fem-pop bypass CRI HTN Smoker HLP Plan: Monitor closely Cardiology consultation 09/09/20: Monitor closely Cath tomorrow Stop smoking (1) Chest pain Status: Acute (2) Hypertensive urgency Status: Chronic (3) Hx of CABG Status: Chronic (4) Smoker Status: Chronic (5) PVD (peripheral vascular disease) Status: Chronic (6) Renal insufficiency Status: Chronic (7) Hyperlipidemia Status: Chronic Clinical Quality Measures AMI/AHF: ASA po Prior to arrival: SOLANGE Tapia DO Sep 10, 2020 19:03
[2020-09-11] MEDS ORDERED: CLOPIDOGREL 75 MG (PLAVIX) TABLET PO SCH (09:00)
[2020-09-11] MEDS ORDERED: ASPIRIN E.C. 81 MG (ECOTRIN) TAB PO SCH (09:00)
--- NOTE | 2020-09-18 00:39 | Physician Query Clarification ---
PQ-Intro New Diagnosis Admission/Discharge Admission Date: Sep 08, 2020 at 15:50 Discharge Date: Sep 10, 2020 at 20:00 Dr.MINDI Jin Jain The medical record reflects the following clinical scenario: History/Risk Factors: 60 y/o male patient presents with left arm weakness and chest pain found to have suitable elevation of troponin and evidence of cerebrovascular disease on CT angiogram without evidence of his brain without evidence of stroke. Hand P, 09/08: Left arm weakness now resolving with cerebrovascular disease on CT angiogram without acute changes. Discharge summary, 09/10: Left arm weakness now resolving with cerebrovascular d isease on CT angiogram without acute changes, elevated troponin Clinical Findings:CT angio reveled There are some ischemic changes in the inferior right cerebellar hemisphere posteriorly which, by imaging, are more likely old but their precise acuity is indeterminat. Treatment:Lovenox, morphine Question: What condition best reflects the above clinical scenario? Please document a response in the Progress Noter or Discharge Summary. 1. Acute CVA 2. 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 Other, with explanation of the clinical findings. 4. Clinically undetermined, no explanation for the clinical findings. PHYSICIAN RESPONSE What condition reflects above: 2 Please remember a lack of response to the above will prompt a phone page by [facility]/Coding staff. In responding to this query, please exercise your independent professional judgment. The purpose of this communication is to more accurately reflect the complexity of your patients condition. The fact that a question is asked does not imply that any particular answer is desired or expected. Thank you for your timely response to this clarification. Requestors name: [ ] Phone # [ ] THIS PHYSICIAN QUERY FORM IS A PERMANENT PART OF THE MEDICAL RECORD [facility] Sep 18, 2020 00:39 YINA REAGAN DO Sep 18, 2020 05:43
--- NOTE | 2020-09-18 14:20 | Conscious Sedation/ASA ---
Conscious Sedation Pre-Proced ASA Score For ASA 3 and 4: Consider anesthesia and medical clearance. Also, for patients with a history of failed moderate sedation consider anesthesia. Airway Lungs Heart ASA score ASA 1: a normal healthy patient ASA 2: a patient with a mild systemic disease (mid diabetes, controlled hypertension, obesity ASA 3: a patient with a severe systemic disease that limits activity (angina, COPD, prior Myocardial infarction) ASA 4: a patient with an incapacitating disease that is a constant threat to life (CHF, renal failure) ASA 5: a moribund patient not expected to survive 24 hrs. (ruptured aneurysm) ASA 6: a declared brain- patient whose organs are being harvested. For emergent operations, add the letter E after the classification Sedation Plan The patient is an appropriate candidate to undergo the planned procedure, sedation, and anesthesia. The patient immediately re-assessed prior to indication. ADRIAN ROMO Sep 18, 2020 14:20
== END 2020-09-10 20:00 | disposition home or self-care (01) | DRG 57 ==
LOC: EDUNIT# 12:42 → ER 12:44 → ICU 15:50
PROVIDERS: ADMIT Internal Medicine; ATTEND Internal Medicine
PROC: 4A023N7 Measurement of Cardiac Sampling and Pressure, Left Heart, Percutaneous Approach (ICD-10-PCS; principal; 2020-09-10)
PROC: B2111ZZ Fluoroscopy of Multiple Coronary Arteries using Low Osmolar Contrast (ICD-10-PCS; 2020-09-10)
PROC: B2151ZZ Fluoroscopy of Left Heart using Low Osmolar Contrast (ICD-10-PCS; 2020-09-10)
PROC: B2131ZZ Fluoroscopy of Multiple Coronary Artery Bypass Grafts using Low Osmolar Contrast (ICD-10-PCS; 2020-09-10)
PROC: B2181ZZ Fluoroscopy of Left Internal Mammary Bypass Graft using Low Osmolar Contrast (ICD-10-PCS; 2020-09-10)
PROC: B3101ZZ Fluoroscopy of Thoracic Aorta using Low Osmolar Contrast (ICD-10-PCS; 2020-09-10)
DX: I69.334 Monoplegia of upper limb following cerebral infarction affecting left non-dominant side (principal); I25.10 Atherosclerotic heart disease of native coronary artery without angina pectoris; Z95.1 Presence of aortocoronary bypass graft; Z79.82 Long term (current) use of aspirin; Z95.5 Presence of coronary angioplasty implant and graft; Z90.49 Acquired absence of other specified parts of digestive tract; E78.00 Pure hypercholesterolemia, unspecified; I10 Essential (primary) hypertension; E11.51 Type 2 diabetes mellitus with diabetic peripheral angiopathy without gangrene; G89.29 Other chronic pain; M54.9 Dorsalgia, unspecified; R29.701 NIHSS score 1; F17.210 Nicotine dependence, cigarettes, uncomplicated; I16.0 Hypertensive urgency; N18.9 Chronic kidney disease, unspecified; I12.9 Hypertensive chronic kidney disease with stage 1 through stage 4 chronic kidney disease, or unspecified chronic kidney disease
CPT/HCPCS: 36221; 36415; 70496; 70498; 71045; 80053; 80061; 83735; 83874; 83880; 84484; 85025; 85610; 85730; 93005; 93041; 93306; 93459

== ENCOUNTER 2023-03-03 08:14 | Inpatient (IN) | payer SELFPAY ==
[~2023-03-03] VITALS: Ht 182.9 cm; Wt 100.7 kg
[~2023-03-03 08:14] MED LIST changes: +ALBU8.5H6 IH; +CARV3.122 PO; +CLOP-31 PO; -CLOP75TA69 PO; +DOXE10CA29 PO; +MINO2.5T PO; +NITR0.4T39 SL; +POTA-185 PO; -POTA10TA PO; +PRAZ1CAP2 PO; -TRIA1CAP4 PO; +TRIA1CAP84 PO
[2023-03-03] MEDS ORDERED: NITROGLYCERIN 2% OINT 1 GM UNIT DOSE PACKET TOP STA (08:25)
[2023-03-03] MEDS ORDERED: ASPIRIN 81 MG CHEWABLE TABLET PO ONE (08:30)
[2023-03-03] MEDS ORDERED: NITROGLYCERIN 0.4 MG SL TABLETS BTL 25'S SL PRN ×2 (08:30→10:30)
[2023-03-03 08:31] LABS: BASOPHILS % (AUTO) 0 % (0-10); EOSINOPHILS # (AUTO) 0.3 10^3/uL (0.0-0.3); EOSINOPHILS % (AUTO) 3 % (0-10); HEMATOCRIT 49 % (40-54); HEMOGLOBIN 16.2 g/dL (13.3-17.7); LYMPHOCYTES % (AUTO) 28 % (12-44); MEAN CORPUSCULAR HEMOGLOBIN 32 pg (25-34); MEAN CORPUSCULAR HGB CONC 33 g/dL (32-36); MEAN CORPUSCULAR VOLUME 95 fL (80-99); MEAN PLATELET VOLUME 9.6 fL (9.0-12.2); MONOCYTES # (AUTO) 0.4 10^3/uL (0.0-1.0); MONOCYTES % (AUTO) 4 % (0-12); NEUTROPHILS # (AUTO) 6.9 10^3/uL (1.8-7.8); NEUTROPHILS % (AUTO) 65 % (42-75); PLATELET COUNT 202 10^3/uL (130-400); WHITE BLOOD COUNT 10.6 10^3/uL (4.3-11.0)
--- NOTE | 2023-03-03 08:31 | ED Chest Pain ---
General Stated Complaint: CHEST PAIN Source: patient (EXTREMELY POOR HISTORIAN), other (GIRLFRIEND IS ALSO POOR HISTORIAN ) History of Present Illness Date Seen by Provider: Mar 03, 2023 Time Seen by Provider: 08:17 Initial Comments PT ARRIVES VIA POV FROM HOME WITH GIRLFRIEND C/O CHEST PAIN THAT BEGAN AROUND 0100 RATES PAIN 11/23 PT CANNOT DESCRIBE PAIN OR ELABORATE ABOUT PAIN HE DENIES SHORTNESS OF BREATH BUT APPEARS TO BE DYSPNEIC ON ARRIVAL + SWEATS WHEN PAIN BEGAN + NAUSEA BUT NO VOMITING NO DIZZINESS OR SYNCOPE HE TOOK NTG XL X 2 AT 0100 WITH A LITTLE IMPROVEMENT HE STATES HE DID TAKE HIS MORNING MEDICATIONS PT IS ON ASPIRIN AND PLAVIX AND AMLODIPINE PT HAS EXTENSIVE CARDIOVASCULAR HISTORY WITH HISTORY OF MA WITH 3 VESSEL CABG IN ADDITION TO STENTS AND ANGIOPLASTY HE HAS ALSO HAD BILATERAL [id number] BYPASS AND ABDOMINAL AORTIC ANEURYSM REPAIR, WITH MULTIPLE PERIPHERAL STENTS INCLUDING ILIAC STENTS HE ALSO HAS HTN, CHF, CKD AND COPD AND CONTINUES TO SMOKE AT LEAST 1 PPD HE DOES NOT HAVE HOME O2 PT HAS LONG HISTORY OF NON-COMPLIANCE PCP: DR. REAGAN HAND PLUG SHAPER: DR. BAJWA Allergies and Home Medications Allergies Coded Allergies: No Known Drug Allergies (Unverified , 03/18/11) Patient Home Medication List Home Medication List Reviewed: Yes Amlodipine Besylate (Amlodipine Besylate) 10 Mg Tablet, 10 MG PO DAILY, (Reported) Entered as Reported by: LYNSEY HUNT on 11/25/18 162 Aspirin (Aspirin EC) 81 Mg Tablet.dr, 81 MG PO DAILY, (Reported) Entered as Reported by: LYNSEY HUNT on 11/25/18 1627 Carvedilol (Carvedilol) 3.125 Mg Tablet, 3.125 MG PO BID, (Reported) Entered as Reported by: HARINI LUIS on 09/08/20 1746 Clopidogrel Bisulfate (Plavix) 75 Mg Tablet, 75 MG PO DAILY, (Reported) Entered as Reported by: ASHLEY SMITH on 11/25/18 1614 Doxepin HCl (Doxepin HCl) 10 Mg Capsule, 10 MG PO HS, (Reported) Entered as Reported by: HARINI LUIS on 09/08/20 1746 Doxylamine Succinate (Sleep Aid) 25 Mg Tablet, 25 MG PO HS PRN for INSOMNIA, (Reported) Entered as Reported by: LYNSEY HUNT on 11/25/181626 Minoxidil (Minoxidil) 2.5 Mg Tablet, 2.5 MG PO DAILY, (Reported) Entered as Reported by: HARINI LUIS on 09/08/201745 Nitroglycerin (Nitroglycerin) 0.4 Mg Tab.subl, 0.4 MG SL UD PRN for CHEST PAIN, (Reported) Entered as Reported by: HARINI LUIS on 09/08/201746 Pravastatin Sodium (Pravastatin Sodium) 20 Mg Tablet, 20 MG PO DAILY, (Reported) Entered as Reported by: LYNSEY HUNT on 11/25/181622 Prazosin HCl (Prazosin HCl) 1 Mg Capsule, 1 MG PO DAILY, (Reported) Entered as Reported by: HARINI LUIS on 09/08/201745 Review of Systems Review of Systems Constitutional: see HPI, diaphoresis EENTM: No Symptoms Reported Respiratory: See HPI Cardiovascular: See HPI Gastrointestinal: See HPI Genitourinary: No Symptoms Reported Musculoskeletal: no symptoms reported Skin: no symptoms reported Psychiatric/Neurological: No Symptoms Reported Endocrine: No Symptoms Reported Hematologic/Lymphatic: No Symptoms Reported Past Ayzmgsi-Bmbler-Zundrv Hx Patient Social History Tobacco Use?: Yes Tobacco type used: Cigarettes Smoking Status: Current Everyday Smoker Substance use?: No Alcohol Use?: No Immunizations Up To Date Tetanus Booster (TDap): Unknown PED Vaccines UTD: No Seasonal Allergies Seasonal Allergies: No Past Medical History Surgeries: Yes Abdominal, Appendectomy, Cardiac, CABG, Coronary Stent, Vascular Surgery Respiratory: Yes Asthma Currently Using CPAP: No Currently Using BIPAP: No Cardiac: Yes (CHF) Aneurysm, Coronary Artery Disease, High Cholesterol, Hypertension, Peripheral Vascular Neurological: Yes (OLD CVA NOTED ON CT SCAN) Reproductive Disorders: No Sexually Transmitted Disease: No HIV/AIDS: No Genitourinary: Yes (CKD) Renal Failure Gastrointestinal: Yes (UMBILICAL HERNIA REPAIR) Abdominal Hernia Musculoskeletal: No Arthritis, Chronic Back Pain Endocrine: No Diabetes, Non-Insulin dep HEENT: Yes Hearing Impairment: Hard of Hearing Cancer: No Psychosocial: No Integumentary: No Blood Disorders: No Adverse Reaction/Blood Tranf: No Family Medical History Cardiovascular disease 19 FATHER 19 MOTHER Deafness or hearing loss 19 FATHER Diabetes mellitus 19 FATHER 19 MOTHER FH: cancer Hypercholesterolemia 19 FATHER 19 MOTHER Hypertension 19 FATHER 19 MOTHER Myocardial infarction 19 FATHER 19 MOTHER No Pertinent Family Hx, CAD Over 55 Years Old, Diabetes, Hypertension SOCIAL HISTORY: -SMOKES AT LEAST 1 PPD -ETOH--DENIES USE -DRUGS--DENIES USE PAST SURGICAL HISTORY: -3 VESSEL CABG PLUS CARDIAC STENTS AND ANGIOPLASTIES -BILATERAL [id number] BYPASS, PLUS MULTIPLE PERIPHERAL STENTS INCLUDING ILIAC STENTS -ABDOMINAL AORTIC ANEURYSM REPAIR Coronary artery disease, history of CABG 3 using MATTSON to LAD, vein graft to OM, vein graft to PDA done in October 2013. Last stress test was done in 2015. Showing no ischemia, Unable to do cardiac catheterization due to his severe peripheral arterial disease last year, was referred to Dr. Rod and underwent cardiac catheterization on 11/17/18 revealing LM with 50-60% stenosis at the distal portion. LAD with 40-50% mid-stent stenosis, 1st diag had 90% stenosis, reduced to 0% after Promus 2.5 x24mm stent placement. L Cx with 30% stenosis. Totally occluded RCA with extensive Left to right collaterals. Occluded VG to the RCA, patent MATTSON to LAD and VG to Ramus/OMB-1, Severe peripheral arterial disease, underwent surgery with Dr. Levin in March 2018 for abdominal aortic aneurysm and severe peripheral arterial disease, questionable aortobifemoral bypass and reported having a total of 6 peripheral stents including iliac stent, had history of stent in the past. CARDIAC CATH 09/10/[address] PERDOMO: FINDINGS: 1.Left main: severe distal stenosis , stenosis severity atleast 80%. 2.LAD: occluded proximal/mid segment 3.Left circumflex artery: patent av groove artery. occluded ramus artery. 4.RCA: occluded proximal segement. supplied by left to right collaterals. 5.Left heart catheterization: LV 158/13. LVEDP 25mmhg. Aortic pressure 144/72mmhg. Normal LV function with no gradient across the aortic valve. 6. Patent MATTSON to the LAD. 7. Patent SVG to the Ramus/OM1 8. chronically occluded graft to the RPDA. 9. Aortic arch angiogram: no evidence of anuerysm or dissection. CONCLUSIONS: 1. Severe chipewwa LM and three vessel disease with patent MATTSON to the LAD and SVG to the Ramus/OM1. Known occluded graft to the RPDA. Occluded RCA, supplied by left to right collaterals. 2. Difficult access in the right femoral artery due to significant calcification - manual compression done. 3. Continue aggressive secondary prevention measures. 4. IV fluids for CKD Physical Exam Vital Signs Vital Signs - First Documented 03/03/23 08:16 Temp 36.5 Pulse 86 Resp 28 B/P (MAP) 209/104 (139) Pulse Ox 98 O2 Delivery Nasal Cannula O2 Flow Rate 2.00 Capillary Refill : Height, Weight, BMI Height: 6'0.00" Weight: 170lbs. 7.0oz. 77.814429ep; 31.97 BMI Method:Stated General Appearance: WD/WN, Anxious, Other (APPEARS MILDLY DYSPNEIC ON ARRIVAL; REEKS OF CIGARETTES) Neck: Full Range of Motion, Normal Inspection, Non Tender, Supple; No JVD Respiratory: Normal Breath Sounds, No Accessory Muscle Use, No Respiratory Distress, Other (MILDLY DYSPNEIC) Cardiovascular: Regular Rate, Rhythm, No Edema, No JVD, No Murmur, Normal Peripheral Pulses Gastrointestinal: Non Tender, Soft Extremity: Normal Capillary Refill, Normal Inspection, Normal Range of Motion, Non Tender, No Calf Tenderness, No Pedal Edema Neurologic/Psychiatric: Alert, Oriented x3, No Motor/Sensory Deficits, manager ambulatory II- XII Norm as Tested, Other (ANXIOUS) Skin: Normal Color, Warm/Dry Progress/Results/Core Measures Results/Orders Lab Results Laboratory Tests Test 03/03/23 08:23 Range/Units White Blood Count 10.6 4.3-11.0 10^3/uL Red Blood Count 5.12 4.30-5.52 10^6/uL Hemoglobin 16.2 13.3-17.7 g/dL Hematocrit 49 40-54 % Mean Corpuscular Volume 95 80-99 fL Mean Corpuscular Hemoglobin 32 25-34 pg Mean Corpuscular Hemoglobin Concent 33 32-36 g/dL Red Cell Distribution Width 13.7 10.0-14.5 % Platelet Count 202 130-400 10^3/uL Mean Platelet Volume 9.6 9.0-12.2 fL Immature Granulocyte % (Auto) 1 % Neutrophils (%) (Auto) 65 42-75 % Lymphocytes (%) (Auto) 28 12-44 % Monocytes (%) (Auto) 4 0-12 % Eosinophils (%) (Auto) 3 0-10 % Basophils (%) (Auto) 0 0-10 % Neutrophils # (Auto) 6.9 1.8-7.8 10^3/uL Lymphocytes # (Auto) 3.0 1.0-4.0 10^3/uL Monocytes # (Auto) 0.4 0.0-1.0 10^3/uL Eosinophils # (Auto) 0.3 0.0-0.3 10^3/uL Basophils # (Auto) 0.0 0.0-0.1 10^3/uL Immature Granulocyte # (Auto) 0.1 0.0-0.1 10^3/uL Prothrombin Time 12.4 12.2-14.7 SEC INR Comment 0.9 0.8-1.4 Activated Partial Thromboplast Time 37 H 24-35 SEC D-Dimer 2.09 H 0.00-0.49 UG/ML Sodium Level 139 135-145 MMOL/L Potassium Level 3.6 3.6-5.0 MMOL/L Chloride Level 105 98-107 MMOL/L Carbon Dioxide Level 20 L 21-32 MMOL/L Anion Gap 14 5-14 MMOL/L Blood Urea Nitrogen 11 7-18 MG/DL Creatinine 1.61 H 0.60-1.30 MG/DL Estimat Glomerular Filtration Rate 47 BUN/Creatinine Ratio 7 Glucose Level 170 H 70-105 MG/DL Calcium Level 8.8 8.5-10.1 MG/DL Corrected Calcium 8.6 8.5-10.1 MG/DL Magnesium Level 2.0 1.6-2.4 MG/DL Total Bilirubin 0.6 0.1-1.0 MG/DL Aspartate Amino Transf (AST/SGOT) 23 5-34 U/L Alanine Aminotransferase (ALT/SGPT) 23 0-55 U/L Alkaline Phosphatase 109 40-136 U/L Total Creatine Kinase 110 30-200 U/L Creatine Kinase MB 2.1 <6.6 NG/ML Myoglobin 74.9 10.0-92.0 NG/ML Troponin I 0.045 H <0.028 NG/ML B-Type Natriuretic Peptide 70.7 <100.0 PG/ML Total Protein 7.2 6.4-8.2 GM/DL Albumin 4.2 3.2-4.5 GM/DL Amylase Level 59 25-125 U/L Lipase 58 8-78 U/L My Orders Orders - REY,MONO K DO Cbc With Automated Diff (03/03/23 08:16) Magnesium (03/03/23 08:16) Chest 1 View, Ap/Pa Only (03/03/23 08:16) Ekg Tracing (03/03/23 08:16) Comprehensive Metabolic Panel (03/03/23 08:16) Myoglobin Serum (03/03/23 08:16) Protime With Inr (03/03/23 08:16) Partial Thromboplastin Time (03/03/23 08:16) O2 (03/03/23 08:16) Monitor-Rhythm Ecg Trace Only (03/03/23 08:16) Ed Iv/Invasive Line Start (03/03/23 08:16) Creatine Kinase (03/03/23 08:16) Creatine Kinase Mb (03/03/23 08:16) Lipase (03/03/23 08:16) Amylase (03/03/23 08:16) Bnp Amber (03/03/23 08:16) Fibrin Degradation Products (03/03/23 08:16) Troponin I Amber (03/03/23 08:16) Nitroglycerin 0.4 Mg Btl 25's (Nitroglyc (03/03/23 08:30) Aspirin Chewable Tablet (Aspirin Chewabl (03/03/23 08:30) Nitroglycerin Ointment (Nitroglycerin (03/03/23 08:25) Morphine Injection (Morphine Injection (03/03/23 09:00) Ed Admission (Communication) (03/03/23 09:31) Enoxaparin Injection (Enoxaparin Injecti (03/03/23 09:45) Enoxaparin Injection (Enoxaparin Injecti (03/03/23 09:45) Medications Given in ED Current Medications Medications Dose Ordered Sig/Sonia Route Start Time Stop Time Status Last Admin Dose Admin Aspirin 324 mg ONCE ONCE PO 03/03/23 08:30 03/03/23 08:31 DC 03/03/23 08:27 324 MG Enoxaparin Sodium 30 mg ONCE ONCE SC 03/03/23 09:45 03/03/23 09:46 DC 03/03/23 09:57 30 MG Enoxaparin Sodium 80 mg ONCE ONCE SC 03/03/23 09:45 03/03/23 09:46 DC 03/03/23 09:57 80 MG Morphine Sulfate 4 mg ONCE ONCE IVP 03/03/23 09:00 03/03/23 09:01 DC 03/03/23 09:04 4 MG Vital Signs/I&O 03/03/23 03/03/23 03/03/23 08:16 08:16 10:10 Temp 36.5 Pulse 86 68 Resp 28 23 B/P (MAP) 209/104 (139) 176/107 Pulse Ox 98 98 O2 Delivery Nasal Cannula Room Air Room Air O2 Flow Rate 2.00 Progress Progress Note : Progress Note VITALS ON ARRIVAL: GIVEN: -ASPIRIN -NITROPASTE--SOME RELIEF, RATES PAIN "5", AND BP IS DOWN TO 170'S/90'S -MORPHINE--PAIN RELIEVED -LOVENOX LABS: -CBC NORMAL -CMP WITH CR, 1.61, GLUCOSE 170 -MG 2.0 -AMYLASE/LIPASE NORMAL -TROPONIN 0.045 -BNP NORMAL -PT/PTT/INR UNREMARKABLE -D-DIMER 2/0 EKG IS UNCHANGED FROM PREVIOUS CXR UNREMARKABLE NO DETERIORATION IN PT'S CONDITION DURING ER STAY BP DOWN AT TIME OF ADMIT PT IS PAIN FREE AT TIME OF ADMIT VITALS STABLE DISCUSSED TEST RESULTS, NEED FOR ADMIT AND PT IS AGREEABLE TO PLAN REVIEWED PRIOR RECORDS INCLUDING ER VISITS, ADMITS/H&P'S/CONSULTS/DISCHARGE SUMMARIES, TESTS/PROCEDURES Initial ECG Impression Date: Mar 03, 2023 Initial ECG Impression Time: 08:21 Initial ECG Rate: 77 Initial ECG Rhythm: Normal Sinus Initial ECG Intervals AZ 154 QRS 134 QT/QTC 419/451 Initial ECG Impression: Nonspecific Changes Initial ECG Comparisson: Unchanged Comment INTERPRETED BY ME Diagnostic Imaging Comments CXR--PER RADIOLOGIST REPORT AT 0857 FINDINGS: There is cardiomegaly. There has been previous median sternotomy and coronary bypass graft. Lungs are clear. No pleural effusion or pneumothorax. Mediastinum is unremarkable. IMPRESSION: No acute cardiopulmonary abnormality. Reviewed: Reviewed by Me Departure Communication (Admissions) 927--SPOKE WITH DR. REAGAN, ACCEPTS PT FOR ADMIT. SHE WILL DO ADMIT ORDERS. 931--MESSAGE TO DR. BAJWA IN IRIDOLOGIST 1000--DR. BAJWA HERE TO SEE PT Impression Primary Impression: NSTEMI (non-ST elevated myocardial infarction) Additional Impressions: Hypertensive urgency Renal insufficiency Hx of CABG PVD (peripheral vascular disease) Hyperglycemia Disposition: ADMITTED INPATIENT Condition: Improved Admissions Decision to Admit Reason: Admit from ER (General) Decision to Admit/Date: Mar 03, 2023 Time/Decision to Admit Time: 09:30 Departure-Patient Inst. Referrals: YINA REAGAN DO (PCP/Family) Primary Care Physician MONO LE DO Mar 03, 2023 08:31
[2023-03-03 08:45] LABS: ALBUMIN 4.2 GM/DL (3.2-4.5)
[2023-03-03 08:46] LABS: POTASSIUM 3.6 MMOL/L (3.6-5.0)
[2023-03-03 08:47] LABS: CALCIUM 8.8 MG/DL (8.5-10.1); INR 0.9 (0.8-1.4); PROTHROMBIN TIME PATIENT 12.4 SEC (12.2-14.7)
[2023-03-03 08:48] LABS: TOTAL PROTEIN 7.2 GM/DL (6.4-8.2)
[2023-03-03 08:50] LABS: BILIRUBIN,TOTAL 0.6 MG/DL (0.1-1.0)
[2023-03-03 08:51] LABS: FIBRIN DEGRADATION PRODUCTS 2.09 UG/ML (0.00-0.49)
[2023-03-03 08:52] LABS: CREATININE SERUM 1.61 MG/DL (0.60-1.30)
--- NOTE | 2023-03-03 08:52 | Diagnostic Imaging Report ---
INDICATION: Chest pain. Comparison is made with prior exam of 09/08/2020. FINDINGS: There is cardiomegaly. There has been previous median sternotomy and coronary bypass graft. Lungs are clear. No pleural effusion or pneumothorax. Mediastinum is unremarkable. IMPRESSION: No acute cardiopulmonary abnormality. Cardiomegaly. Dictated by: Dictated on workstation # [id number]
[2023-03-03] MEDS ORDERED: morphine INJ 4 MG/ML 1 ML (VIAL/SYRINGE) IVP ONE (09:00)
[2023-03-03 09:02] LABS: CREATINE KINASE MB 2.1 NG/ML (<6.6)
[2023-03-03] MEDS ORDERED: ENOXAPARIN 30 MG/0.3 ML SYRINGE SC ONE (09:45)
[2023-03-03] MEDS ORDERED: ENOXAPARIN 80 MG/0.8 ML SYRINGE SC ONE (09:45)
--- NOTE | 2023-03-03 10:13 | Consultation-Cardiology ---
HPI-Cardiology Cardiology Consultation Date of Consultation 03/03/23 Date of Admission Time Seen by Provider: 10:07 Indication: Chest pain HPI 62-year-old gentleman with known extensive coronary artery disease, hypertension and hyperlipidemia and tobaccoism. Suffered from COVID-19 infection last week. Was feeling better, started to have chest pain last night, described as dull in nature in the retrosternal area associated with diaphoresis. Has been having pedal edema. No significant dyspnea. No syncope or near syncopal episodes. No claudications. Home Medications & Allergies Allergies: Coded Allergies: No Known Drug Allergies (Unverified , 03/18/11) Home Medication List Reviewed: Yes ZYB-Vynoqc-Bryswq Hx Patient Social History Marital Status: Employed/Student: employed Smoking Status: Current Everyday Smoker Type Used: Cigarettes Recent Hopitalizations: No Alcohol Use?: No Immunizations Up To Date Tetanus Booster (TDap): Unknown Date of Influenza Vaccine: Mar 16, 2020 Past Medical History Discussed below Family Medical History Significant Family History: No Pertinent Family Hx, CAD Over 55 Years Old, Diabetes, Hypertension Family History: Cardiovascular disease 19 FATHER 19 MOTHER Deafness or hearing loss 19 FATHER Diabetes mellitus 19 FATHER 19 MOTHER FH: cancer Hypercholesterolemia 19 FATHER 19 MOTHER Hypertension 19 FATHER 19 MOTHER Myocardial infarction 19 FATHER 19 MOTHER Review of Systems-General Review of Systems Constitutional: see HPI, diaphoresis EENTM: see HPI, no symptoms reported Respiratory: see HPI; No cough; dyspnea on exertion; No hemoptysis, No orthopnea, No phlegm; short of breath; No stridor, No wheezing, No other Cardiovascular: see HPI, chest pain; No edema, No Hx of Intervention, No palpitations, No syncope, No vascular heart diseas, No other Gastrointestinal: no symptoms reported, see HPI Genitourinary: no symptoms reported, see HPI Musculoskeletal: no symptoms reported Skin: no symptoms reported Psychiatric/Neurological: No Symptoms Reported Reviewed Test Results Reviewed Test Results Lab Laboratory Tests Test 03/03/23 08:23 Range/Units White Blood Count 10.6 4.3-11.0 10^3/uL Red Blood Count 5.12 4.30-5.52 10^6/uL Hemoglobin 16.2 13.3-17.7 g/dL Hematocrit 49 40-54 % Mean Corpuscular Volume 95 80-99 fL Mean Corpuscular Hemoglobin 32 25-34 pg Mean Corpuscular Hemoglobin Concent 33 32-36 g/dL Red Cell Distribution Width 13.7 10.0-14.5 % Platelet Count 202 130-400 10^3/uL Mean Platelet Volume 9.6 9.0-12.2 fL Immature Granulocyte % (Auto) 1 % Neutrophils (%) (Auto) 65 42-75 % Lymphocytes (%) (Auto) 28 12-44 % Monocytes (%) (Auto) 4 0-12 % Eosinophils (%) (Auto) 3 0-10 % Basophils (%) (Auto) 0 0-10 % Neutrophils # (Auto) 6.9 1.8-7.8 10^3/uL Lymphocytes # (Auto) 3.0 1.0-4.0 10^3/uL Monocytes # (Auto) 0.4 0.0-1.0 10^3/uL Eosinophils # (Auto) 0.3 0.0-0.3 10^3/uL Basophils # (Auto) 0.0 0.0-0.1 10^3/uL Immature Granulocyte # (Auto) 0.1 0.0-0.1 10^3/uL Prothrombin Time 12.4 12.2-14.7 SEC INR Comment 0.9 0.8-1.4 Activated Partial Thromboplast Time 37 H 24-35 SEC D-Dimer 2.09 H 0.00-0.49 UG/ML Sodium Level 139 135-145 MMOL/L Potassium Level 3.6 3.6-5.0 MMOL/L Chloride Level 105 98-107 MMOL/L Carbon Dioxide Level 20 L 21-32 MMOL/L Anion Gap 14 5-14 MMOL/L Blood Urea Nitrogen 11 7-18 MG/DL Creatinine 1.61 H 0.60-1.30 MG/DL Estimat Glomerular Filtration Rate 47 BUN/Creatinine Ratio 7 Glucose Level 170 H 70-105 MG/DL Calcium Level 8.8 8.5-10.1 MG/DL Corrected Calcium 8.6 8.5-10.1 MG/DL Magnesium Level 2.0 1.6-2.4 MG/DL Total Bilirubin 0.6 0.1-1.0 MG/DL Aspartate Amino Transf (AST/SGOT) 23 5-34 U/L Alanine Aminotransferase (ALT/SGPT) 23 0-55 U/L Alkaline Phosphatase 109 40-136 U/L Total Creatine Kinase 110 30-200 U/L Creatine Kinase MB 2.1 <6.6 NG/ML Myoglobin 74.9 10.0-92.0 NG/ML Troponin I 0.045 H <0.028 NG/ML B-Type Natriuretic Peptide 70.7 <100.0 PG/ML Total Protein 7.2 6.4-8.2 GM/DL Albumin 4.2 3.2-4.5 GM/DL Amylase Level 59 25-125 U/L Lipase 58 8-78 U/L Physical Exam Physical Exam Vital Signs Vital Signs - First Documented 03/03/23 08:16 Temp 36.5 Pulse 86 Resp 28 B/P (MAP) 209/104 (139) Pulse Ox 98 O2 Delivery Nasal Cannula O2 Flow Rate 2.00 Capillary Refill : Less Than 3 Seconds Height, Weight, BMI Height: 6'0.00" Weight: 170lbs. 7.0oz. 77.773969jo; 32.00 BMI Method:Stated General Appearance: WD/WN, Anxious, Other (APPEARS MILDLY DYSPNEIC ON ARRIVAL; REEKS OF CIGARETTES) Eyes: Bilateral Eye Normal Inspection, Bilateral Eye PERRL, Bilateral Eye EOMI HEENT: PERRL/EOMI, TMs Normal, Normal ENT Inspection, Pharynx Normal, Moist Mucous Membranes Neck: Full Range of Motion, Normal Inspection, Non Tender, Supple; No JVD Respiratory: Normal Breath Sounds, No Accessory Muscle Use, No Respiratory Distress, Other (MILDLY DYSPNEIC) Cardiovascular: Regular Rate, Rhythm, No Edema, No JVD, No Murmur, Normal Peripheral Pulses Gastrointestinal: Non Tender, Soft Back: Normal Inspection, No CVA Tenderness, No Vertebral Tenderness Extremity: Normal Capillary Refill, Normal Inspection, Normal Range of Motion, Non Tender, No Calf Tenderness, No Pedal Edema Neurologic/Psychiatric: Alert, Oriented x3, No Motor/Sensory Deficits, it quality analyst II- XII Norm as Tested, Other (ANXIOUS) Skin: Normal Color, Warm/Dry Lymphatic: No Adenopathy A/P-Cardiology Admission Diagnosis Non-ST elevation myocardial infarction Coronary artery disease Hypertensive urgency Hyperlipidemia Assessment/Plan Chest pain, non-ST elevation myocardial infarction Conservative management, monitor troponin trend and EKG Started on aspirin, Plavix and Lovenox Coronary artery disease History of CABG x3 using MATTSON to LAD, vein graft to obtuse marginal and vein graft to the right PDA in October [address] MOJICA. Cardiac catheterization done by Dr. Rod in October 2018 with a left main had 50 to 60% stenosis, LAD 40 to 50% mid in-stent restenosis, 90% diagonal artery stenosis with deployment of Promus 2.5 x 24 stent, circumflex has 30% stenosis and right coronary artery was totally occluded with extensive dlyw-aj-dzigh collaterals, occluded vein graft to the right, patent MATTSON to LAD, patent vein graft to the ramus intermedius/obtuse marginal branch. Repeat cardiac catheterization done by Dr. Xiong in 2020 with similar finding. No change in anatomy Status post recent COVID-19 infection. Recovering Hypertension, hypertensive urgency Maintained on amlodipine 10 mg daily Previously was complaining of fatigue on metoprolol was unable to tolerated Unable to tolerate hydralazine I tried carvedilol and appeared that he did not continue on that medication Cannot tolerate SASCHA or ARB due to history of renal failure, I reviewed his record and his creatinine did not go over 2. I will try low-dose losartan Chronic kidney disease stage IV. Hyperlipidemia, Was on pravastatin in the past Evaluate lipid profile Peripheral arterial disease, extensive disease Had surgery done with Dr. Mojica in March 2018. Abdominal aortic aneurysm and severe peripheral arterial disease with questionable aorto bifemoral bypass and reported a total of 6 peripheral stents including iliac stent, No recent work-up Mild bilateral carotid stenosis, no recent ultrasound Tobaccoism, still an active smoker Diabetes mellitus, followed and managed by primary care physician COPD History of noncompliance with medications Clinical Quality Measures AMI/AHF: ASA po Prior to arrival: SUSAN Pham MD Mar 03, 2023 10:13
[2023-03-03] MEDS ORDERED: oxyCODONE IMMEDIATE RELEASE 5 MG TABLET PO PRN (10:30)
[2023-03-03] MEDS ORDERED: ANTACID SUSPENSION 30 ML UDC PO PRN (10:30)
[2023-03-03] MEDS ORDERED: NS IV 500 ML 500 ML IV PRN (10:30)
[2023-03-03] MEDS ORDERED: MELATONIN 3 MG TABLET PO PRN (10:30)
[2023-03-03] MEDS ORDERED: MILK OF MAGNESIA 400 MG/5 ML 30 ML UDC PO PRN (10:30)
[2023-03-03] MEDS ORDERED: BISACODYL 10 MG SUPPOSITORY PR PRN (10:30)
[2023-03-03] MEDS ORDERED: LACTULOSE SYRUP 10GM/15ML 30ML UDC PO PRN (10:30)
[2023-03-03] MEDS ORDERED: ONDANSETRON INJECTION 4 MG/2 ML (SDV) IV PRN (10:30)
[2023-03-03] MEDS ORDERED: ACETAMINOPHEN 325 MG TABLET PO PRN (10:30)
[2023-03-03] MEDS ORDERED: HYDROmorphone INJECTION 2 MG/ML VIAL IV PRN (10:30)
[2023-03-03] MEDS ORDERED: PATIENT MAY USE OWN MEDS, ALL PO SCH (10:30)
[2023-03-03] MEDS ORDERED: diphenhydrAMINE 25 MG TABLET PO PRN (10:30)
[2023-03-03] MEDS ORDERED: diphenhydrAMINE INJ 50 MG/ML VIAL IVP PRN (10:30)
[2023-03-03] MEDS ORDERED: ONDANSETRON 4 MG ORAL DISSOLVE TABLET PO PRN (10:30)
[2023-03-03] MEDS ORDERED: hydrALAZINE INJECTION 20 MG/ML VIAL IV PRN (10:30)
[2023-03-03] MEDS ORDERED: CALCIUM CARBONATE 500 MG CHEW TABLET PO PRN (10:30)
[2023-03-03 11:17] VITALS: BP 143/88
[2023-03-03] MEDS ORDERED: RT-Ipratropium/Albuterol NEB 3 ML VIAL INH PRN (11:45)
--- NOTE | 2023-03-03 12:29 | History & Physical ---
MELISSAMARTIN 03/03/23 1229: History of Present Illness History of Present Illness Reason for visit/HPI Patient is a 62-year-old male with a history of previous MN, CABG x3 and PVD who presented to the ED on 03/03 with CC of chest pain. He states that at around 1:00 this morning, he began having a dull sensation of pain in his sternum, associated diaphoresis and nausea without vomiting. He took 2 nitro tabs this morning with little improvement. He had COVID last week, asympomatic as of . In the ED, D-dimer was elevated at 2.09, troponin at 0.45. EKG was unchanged from previous visits. He was given nitro paste, morphine, lovenox, and aspirin after which his chest pain resolved. He is a patient of Dr. Arteaga'radha who was consulted and recommended conservative treatment with ASA, plavix, and lovenox. Initial BP measured at 209/104, improved after receiving nitro and metoprolol. Patient reports that he did not feel SOB but did appear dyspneic, placed on 2L via NC and currently does not seem to be SOB. Patient is seen laying comfortably in bed. He reports that he is not currently having any chest pain or SOB, systolic is in the 130s during the exam. Patient has no other complaints. Date of Admission Mar 03, 2023 at 10:10 I consulted on this patient on 03/03/23 12:24 Attending Physician Solange Reagan DO Admitting Physician Admitting Physician: Solange Reagan DO Attending Physician: Solange Reagan DO Consult Allergies and Home Medications Allergies Coded Allergies: No Known Drug Allergies (Unverified , 03/18/11) Patient Home Medication List Amlodipine Besylate (Amlodipine Besylate) 10 Mg Tablet, 10 MG PO DAILY, (Reported) Entered as Reported by: LYNSEY HUNT on 11/25/18 1623 Last Action: Reviewed Clopidogrel Bisulfate (Plavix) 75 Mg Tablet, 75 MG PO DAILY, (Reported) Entered as Reported by: ASHLEY SMITH on 11/25/18 1614 Last Action: Reviewed Doxylamine Succinate (Sleep Aid) 25 Mg Tablet, 50 MG PO HS, (Reported) Entered as Reported by: AYLEEN BARNES on 03/03/23 1339 Last Action: Reviewed Nitroglycerin (Nitroglycerin) 0.4 Mg Tab.subl, 0.4 MG SL UD PRN for CHEST PAIN, (Reported) Entered as Reported by: HARINI LUIS on 09/08/201746 Last Action: Reviewed Vit C/E/Zn/Coppr/Lutein/Zeaxan (Preservision Areds 2 Softgel) Unknown Strength Capsule, 1 EA PO BID, (Reported) Entered as Reported by: Anna Fair on 03/03/231309 Last Action: Reviewed Discontinued Medications Aspirin (Aspirin EC) 81 Mg Tablet.dr, 81 MG PO DAILY, (Reported) Discontinued Reason: No Longer Taking Entered as Reported by: LYNSEY HUNT on 11/25/181626 Last Action: Discontinued Carvedilol (Carvedilol) 3.125 Mg Tablet, 3.125 MG PO BID, (Reported) Discontinued Reason: No Longer Taking Entered as Reported by: HARINI LUIS on 09/08/201745 Last Action: Discontinued Diphenhydramine HCl (Diphenhydramine HCl) 25 Mg Tablet, 25 MG PO PRN PRN for INSOMNIA, (Reported) Discontinued Reason: Prescription changed Entered as Reported by: Anna Fair on 03/03/231309 Last Action: Reviewed Doxepin HCl (Doxepin HCl) 10 Mg Capsule, 10 MG PO HS, (Reported) Discontinued Reason: No Longer Taking Entered as Reported by: HARINI LUIS on 09/08/201745 Last Action: Discontinued Doxylamine Succinate (Sleep Aid) 25 Mg Tablet, 25 MG PO HS PRN for INSOMNIA, (Reported) Discontinued Reason: No Longer Taking Entered as Reported by: LYNSEY HUNT on 11/25/181626 Last Action: Discontinued Minoxidil (Minoxidil) 2.5 Mg Tablet, 2.5 MG PO DAILY, (Reported) Discontinued Reason: No Longer Taking Entered as Reported by: HARINI LUIS on 09/08/201745 Last Action: Discontinued Pravastatin Sodium (Pravastatin Sodium) 20 Mg Tablet, 20 MG PO DAILY, (Reported) Discontinued Reason: No Longer Taking Entered as Reported by: LYNSEY HUNT on 11/25/181622 Last Action: Discontinued Prazosin HCl (Prazosin HCl) 1 Mg Capsule, 1 MG PO DAILY, (Reported) Discontinued Reason: No Longer Taking Entered as Reported by: HARINI LUIS on 09/08/20 2936 Last Action: Discontinued Past Bugewql-Wthyzh-Qahoao Hx Patient Social History Marrital Status: Employed/Student: employed Tobacco Use?: Yes Tobacco type used: Cigarettes Smoking Status: Current Everyday Smoker Use of E-Cig and/or Vaping dev: No Substance use?: No Alcohol Use?: No Pt feels they are or have been: No Immunizations Up To Date Date of Influenza Vaccine: Mar 16, 2020 Tetanus Booster (TDap): Unknown Hepatitis A: No Hepatitis B: Yes PED Vaccines UTD: No Seasonal Allergies Seasonal Allergies: No Current Status Advance Directives: Yes Advance Directive Location: Home Communicates: Verbally Primary Language: Yi Preferred Spoken Language: Yi Sensory deficits: Vision impairment, Hearing impairment Implanted or Applied Medical D: Stents Past Medical History Surgeries: Abdominal, Appendectomy, Cardiac, CABG, Coronary Stent, Vascular Surgery Asthma Currently Using CPAP: No Currently Using BIPAP: No Aneurysm, Coronary Artery Disease, High Cholesterol, Hypertension, Peripheral Vascular Sexually Transmitted Disease: No HIV/AIDS: No Renal Failure Abdominal Hernia Arthritis, Chronic Back Pain Diabetes, Non-Insulin dep Hearing Impairment: Hard of Hearing Blood Disorders: No Adverse Reaction/Blood Tranf: No Family Medical History Cardiovascular disease 19 FATHER 19 MOTHER Deafness or hearing loss 19 FATHER Diabetes mellitus 19 FATHER 19 MOTHER FH: cancer Hypercholesterolemia 19 FATHER 19 MOTHER Hypertension 19 FATHER 19 MOTHER Myocardial infarction 19 FATHER 19 MOTHER No Pertinent Family Hx, CAD Over 55 Years Old, Diabetes, Hypertension SOCIAL HISTORY: -SMOKES AT LEAST 1 PPD -ETOH--DENIES USE -DRUGS--DENIES USE PAST SURGICAL HISTORY: -3 VESSEL CABG PLUS CARDIAC STENTS AND ANGIOPLASTIES -BILATERAL [id number] BYPASS, PLUS MULTIPLE PERIPHERAL STENTS INCLUDING ILIAC STENTS -ABDOMINAL AORTIC ANEURYSM REPAIR Coronary artery disease, history of CABG 3 using MATTSON to LAD, vein graft to OM, vein graft to PDA done in October 2013. Last stress test was done in 2015. Showing no ischemia, Unable to do cardiac catheterization due to his severe peripheral arterial disease last year, was referred to Dr. Rod and underwent cardiac catheterization on 11/17/18 revealing LM with 50-60% stenosis at the distal portion. LAD with 40-50% mid-stent stenosis, 1st diag had 90% stenosis, reduced to 0% after Promus 2.5 x24mm stent placement. L Cx with 30% stenosis. Totally occluded RCA with extensive Left to right collaterals. Occluded VG to the RCA, patent MATTSON to LAD and VG to Ramus/OMB-1, Severe peripheral arterial disease, underwent surgery with Dr. Levin in March 2018 for abdominal aortic aneurysm and severe peripheral arterial disease, questionable aortobifemoral bypass and reported having a total of 6 peripheral stents including iliac stent, had history of stent in the past. CARDIAC CATH 09/10/[address] PERDOMO: FINDINGS: 1.Left main: severe distal stenosis , stenosis severity atleast 80%. 2.LAD: occluded proximal/mid segment 3.Left circumflex artery: patent av groove artery. occluded ramus artery. 4.RCA: occluded proximal segement. supplied by left to right collaterals. 5.Left heart catheterization: LV 158/13. LVEDP 25mmhg. Aortic pressure 144/72mmhg. Normal LV function with no gradient across the aortic valve. 6. Patent MATTSON to the LAD. 7. Patent SVG to the Ramus/OM1 8. chronically occluded graft to the RPDA. 9. Aortic arch angiogram: no evidence of anuerysm or dissection. CONCLUSIONS: 1. Severe [place] LM and three vessel disease with patent MATTSON to the LAD and SVG to the Ramus/OM1. Known occluded graft to the RPDA. Occluded RCA, supplied by left to right collaterals. 2. Difficult access in the right femoral artery due to significant calcification - manual compression done. 3. Continue aggressive secondary prevention measures. 4. IV fluids for CKD Review of Systems Constitutional: No chills; diaphoresis (none currently) EENTM: No hearing loss, No blurred vision Respiratory: No cough; short of breath (Denied SOB, appeared dyspneic on RA, currently no SOB on 2L) Cardiovascular: chest pain (None currently); No edema; Hx of Intervention Gastrointestinal: nausea (Prior to admission); No vomiting Genitourinary: No dysuria, No hematuria Musculoskeletal: No back pain, No neck pain Skin: No change in color, No change in hair/nails Psychiatric/Neurological: Denies Numbness, Denies Weakness Physical Exam Vital Signs Vital Signs - First Documented 03/03/23 08:16 Temp 36.5 Pulse 86 Resp 28 B/P (MAP) 209/104 (139) Pulse Ox 98 O2 Delivery Nasal Cannula O2 Flow Rate 2.00 Capillary Refill : Less Than 3 Seconds Height, Weight, BMI Height: 6'0.00" Weight: 170lbs. 7.0oz. 77.101473mb; 29.44 BMI Method:Stated General Appearance: No Apparent Distress, WD/WN HEENT: PERRL/EOMI Neck: Non Tender, Supple Respiratory: Chest Non Tender, No Accessory Muscle Use, No Respiratory Distress Cardiovascular: Regular Rate, Rhythm, Normal Peripheral Pulses Gastrointestinal: Non Tender, Soft Rectal: Deferred Back: No Vertebral Tenderness Extremity: Normal Capillary Refill, Non Tender, No Calf Tenderness, No Pedal Edema Neurologic/Psychiatric: Alert, Oriented x3 Skin: Normal Color, Warm/Dry Lymphatic: No Adenopathy Assessment/Plan Assessment and Plan NSTEMI: Cardiology consulted, appreciate recs, continue ASA, plavix, lovenox Hypertensive urgency: Cardiology consulted, BP currently in 130s systolic, takes amlodipine at home, losartan and clonidine added today CAD with history of CABG x3: Cardiology consulted continue ASA, plavix, lovenox COPD: Currently on 2L O2 via NC, nebs as needed PVD: History of 6 stents including iliac, last surgery done in [address] Levin HLD: has been on pravastatin, continue CKD: Cr elevated at 1.61, at patient's baseline, continue to monitor BUN and Cr. [id number] T2DM: SSI B/l carotid artery stenosis: no recent US, last one showed mild stenosis Current smoker: nicotine patches as needed Clinical Quality Measures AMI/AHF: ASA po Prior to arrival: SOLANGE Tapia DO 03/03/231950: History of Present Illness History of Present Illness Reason for visit/HPI Chief complaint: Angina HPI: This is a 62-year-old male clinic patient of [facility] with a past medical history of severe hypertension and CAD previous bypass with peripheral vascular disease who presented to the ER with chest pain. He had COVID last week. Cardiology consulted. Blood pressure much better with IV medication. Date Seen by a Provider: Mar 03, 2023 Time Seen by a Provider: 11:00 Allergies and Home Medications Allergies Coded Allergies: No Known Drug Allergies (Unverified , 03/18/11) Patient Home Medication List Home Medication List Reviewed: Yes Amlodipine Besylate (Amlodipine Besylate) 10 Mg Tablet, 10 MG PO DAILY, (Reported) Entered as Reported by: LYNSEY HUNT on 11/25/181622 Last Action: Reviewed Clopidogrel Bisulfate (Plavix) 75 Mg Tablet, 75 MG PO DAILY, (Reported) Entered as Reported by: ASHLEY SMITH on 11/25/18 161 Last Action: Reviewed Doxylamine Succinate (Sleep Aid) 25 Mg Tablet, 50 MG PO HS, (Reported) Entered as Reported by: AYLEEN BARNES on 03/03/23 1339 Last Action: Reviewed Nitroglycerin (Nitroglycerin) 0.4 Mg Tab.subl, 0.4 MG SL UD PRN for CHEST PAIN, (Reported) Entered as Reported by: HARINI LUIS on 09/08/201746 Last Action: Reviewed Vit C/E/Zn/Coppr/Lutein/Zeaxan (Preservision Areds 2 Softgel) Unknown Strength Capsule, 1 EA PO BID, (Reported) Entered as Reported by: Anna Fair on 03/03/231309 Last Action: Reviewed Discontinued Medications Aspirin (Aspirin EC) 81 Mg Tablet.dr, 81 MG PO DAILY, (Reported) Discontinued Reason: No Longer Taking Entered as Reported by: LYNSEY HUNT on 11/25/181626 Last Action: Discontinued Carvedilol (Carvedilol) 3.125 Mg Tablet, 3.125 MG PO BID, (Reported) Discontinued Reason: No Longer Taking Entered as Reported by: HARINI LUIS on 09/08/201745 Last Action: Discontinued Diphenhydramine HCl (Diphenhydramine HCl) 25 Mg Tablet, 25 MG PO PRN PRN for INSOMNIA, (Reported) Discontinued Reason: Prescription changed Entered as Reported by: Anna Fair on 03/03/231309 Last Action: Reviewed Doxepin HCl (Doxepin HCl) 10 Mg Capsule, 10 MG PO HS, (Reported) Discontinued Reason: No Longer Taking Entered as Reported by: HARINI LUIS on 09/08/201745 Last Action: Discontinued Doxylamine Succinate (Sleep Aid) 25 Mg Tablet, 25 MG PO HS PRN for INSOMNIA, (Reported) Discontinued Reason: No Longer Taking Entered as Reported by: LYNSEY HUNT on 11/25/181626 Last Action: Discontinued Minoxidil (Minoxidil) 2.5 Mg Tablet, 2.5 MG PO DAILY, (Reported) Discontinued Reason: No Longer Taking Entered as Reported by: HARINI LUIS on 09/08/201745 Last Action: Discontinued Pravastatin Sodium (Pravastatin Sodium) 20 Mg Tablet, 20 MG PO DAILY, (Reported) Discontinued Reason: No Longer Taking Entered as Reported by: LYNSEY HUNT on 11/25/181622 Last Action: Discontinued Prazosin HCl (Prazosin HCl) 1 Mg Capsule, 1 MG PO DAILY, (Reported) Discontinued Reason: No Longer Taking Entered as Reported by: HARINI LUIS on 09/08/201745 Last Action: Discontinued Past Tszjlqu-Vwwabt-Szupsg Hx Patient Social History Marrital Status: cohabiting Employed/Student: employed Smoking Status: Current Everyday Smoker Past Medical History Surgeries: CABG, Coronary Stent, Vascular Surgery COPD High Cholesterol, Hypertension Family Medical History Cardiovascular disease 19 FATHER 19 MOTHER Deafness or hearing loss 19 FATHER Diabetes mellitus 19 FATHER 19 MOTHER FH: cancer Hypercholesterolemia 19 FATHER 19 MOTHER Hypertension 19 FATHER 19 MOTHER Myocardial infarction 19 FATHER 19 MOTHER Review of Systems Constitutional: see HPI, malaise, weakness Respiratory: dyspnea on exertion Cardiovascular: chest pain (None currently) Physical Exam General Appearance: No Apparent Distress, WD/WN, Chronically ill Respiratory: Lungs Clear, Normal Breath Sounds Cardiovascular: Regular Rate, Rhythm Neurologic/Psychiatric: Alert, Oriented x3 Assessment/Plan Assessment and Plan Assessment: Unstable angina NSTEMI Hypertensive urgency CAD history of bypass Hyperlipidemia Chronic kidney disease Elevated D-dimer Current smoker Plan: Admit Cardiology consult ICU Admission Diagnosis Admission Status: Inpatient Order (span 2 midnights) Reason for Inpatient Admission: NSTEMI Supervisory-Addendum Brief Verification & Attestation Participated in pt care: history, MDM, physical Personally performed: exam, history, MDM, supervision of care Care discussed with: Medical Student Procedures: n/a Results interpretation: Verified all documentation Verification and Attestation of Medical Student E/M Service A medical student performed and documented this service in my presence. I reviewed and verified all information documented by the medical student and made modifications to such information, when appropriate. I personally performed the physical exam and medical decision making. Solange Reagan, Mar 03, 2023,19:51 MARTIN TORRES Mar 03, 2023 12:29 SOLANGE REAGAN DO Mar 03, 2023 19:51
[2023-03-03] MEDS ORDERED: DIPH25TA31 PO (13:10)
[2023-03-03] MEDS ORDERED: VIT1CAPS44 PO (13:10)
[2023-03-03] MEDS: amLODIPine 10 MG TABLET PO SCH (13:13)
[2023-03-03] MEDS: CLOPIDOGREL 75 MG TABLET PO SCH (13:13)
[2023-03-03] MEDS: cloNIDine 0.1 MG TABLET PO SCH ×2 (13:28→20:08)
[2023-03-03] MEDS: LOSARTAN 25 MG TABLET PO SCH (13:28)
[2023-03-03] MEDS: NITROGLYCERIN 2% OINT 1 GM UNIT DOSE PACKET TOP SCH ×2 (13:28→18:25)
[2023-03-03] MEDS ORDERED: DOXY25TA50 PO (13:39)
[2023-03-03] MEDS: NS IV 1000 ML 1,000 ML IV SCH (13:52)
[2023-03-03] MEDS: DOCUSATE SODIUM 100 MG CAPSULE PO SCH (20:08)
[2023-03-03] MEDS: SENNOSIDES 8.6 MG TABLET PO SCH (20:08)
[2023-03-03] MEDS: ENOXAPARIN 120 MG/0.8 ML SYRINGE SC SCH (20:09)
[2023-03-04] MEDS: NITROGLYCERIN 2% OINT 1 GM UNIT DOSE PACKET TOP SCH ×2 (00:12→05:53)
[2023-03-04] MEDS: NS IV 1000 ML 1,000 ML IV SCH (04:46)
[2023-03-04 04:47] LABS: BASOPHILS % (AUTO) 0 % (0-10); EOSINOPHILS # (AUTO) 0.3 10^3/uL (0.0-0.3); EOSINOPHILS % (AUTO) 2 % (0-10); HEMATOCRIT 44 % (40-54); HEMOGLOBIN 14.6 g/dL (13.3-17.7); LYMPHOCYTES # (AUTO) 3.7 10^3/uL (1.0-4.0); LYMPHOCYTES % (AUTO) 33 % (12-44); MEAN CORPUSCULAR HEMOGLOBIN 32 pg (25-34); MEAN CORPUSCULAR HGB CONC 34 g/dL (32-36); MEAN CORPUSCULAR VOLUME 95 fL (80-99); MONOCYTES # (AUTO) 0.3 10^3/uL (0.0-1.0); MONOCYTES % (AUTO) 3 % (0-12); NEUTROPHILS # (AUTO) 6.7 10^3/uL (1.8-7.8); NEUTROPHILS % (AUTO) 60 % (42-75); PLATELET COUNT 202 10^3/uL (130-400)
[2023-03-04 05:01] LABS: ALBUMIN 3.7 GM/DL (3.2-4.5); BILIRUBIN,TOTAL 0.7 MG/DL (0.1-1.0); CALCIUM 8.3 MG/DL (8.5-10.1); CREATININE SERUM 1.65 MG/DL (0.60-1.30); PHOSPHORUS 2.6 MG/DL (2.3-4.7); POTASSIUM 3.5 MMOL/L (3.6-5.0); TOTAL PROTEIN 6.1 GM/DL (6.4-8.2)
[2023-03-04] MEDS ORDERED: MAGNESIUM 1 GM/100 ML IVPB 100 ML IV SCH (06:00)
[2023-03-04] MEDS ORDERED: POTASSIUM CHLORIDE 20 MEQ TABLET PO SCH (06:00)
[2023-03-04] MEDS ORDERED: POTASSIUM CL 10MEQ/50ML IVPB 50 ML IV SCH (06:00)
--- NOTE | 2023-03-04 07:43 | Cardiology Progress Note ---
Subjective Date Seen by Provider: Mar 04, 2023 Time Seen by Provider: 07:40 Subjective/Events-last exam Patient was seen at bedside, laying down comfortably, denied any chest pain. Review of Systems General: No Chills, No Night Sweats, No Fatigue, No Malaise, No Appetite, No Other HEENT: No Head Aches, No Visual Changes, No Eye Pain, No Ear Pain, No Dysphasia, No Sinus Congestion, No Post Nasal Drip, No Sore Throat, No Other Pulmonary: No Dyspnea, No Cough, No Pleuritic Chest Pain, No Other Cardiovascular: No: Chest Pain, Palpitations, Orthopnea, Paroxysmal Noc. Dyspnea, Edema, Lt Headedness, Other Objective-Cardiology Exam Last Set of Vital Signs Vital Signs 03/04/23 03/04/23 06:00 07:21 Temp 36.3 Pulse 59 Resp 17 B/P (MAP) 150/75 (100) Pulse Ox 96 O2 Delivery Nasal Cannula O2 Flow Rate 2.00 I&O Intake and Output 03/04/23 00:00 Intake Total 860 ml Output Total 400 ml Balance 460 ml Intake Oral 860 ml Output Urine Total 400 ml # Voids 1 Daily Weight Change No General: Alert, Oriented X3, Cooperative HEENT: Atraumatic, PERRLA Neck: Supple, No JVD, No Thyromegaly Lungs: Clear to Auscultation, Normal Air Movement Heart: Regular Rate, Normal S1, Normal S2, No Murmurs Abdomen: Normal Bowel Sounds, Soft, No Tenderness, No Hepatosplenomegaly, No Masses Extremities: No Clubbing, No Cyanosis, No Edema, Normal Pulses, No Tenderness/Swelling Skin: No Rashes, No Breakdown, No Significant Lesion Neuro: Normal Gait, Normal Speech, Strength at 5/5 X4 Ext, Normal Tone, Sensation Intact Psych/Mental Status: Mental Status NL, Mood NL Results Lab Laboratory Tests 03/03/23 08:23 03/04/23 03:57 A/P-Cardiology Admission Diagnosis Non-ST elevation myocardial infarction Coronary artery disease Hypertensive urgency Hyperlipidemia Assessment/Plan Chest pain, non-ST elevation myocardial infarction Conservative management, monitor troponin trend and EKG Continue on aspirin and Plavix. Continue Lovenox and monitor DC nitroglycerin patch Coronary artery disease History of CABG x3 using MATTSON to LAD, vein graft to obtuse marginal and vein graft to the right PDA in October [address] MOJICA. Cardiac catheterization done by Dr. Rod in October 2018 with a left main had 50 to 60% stenosis, LAD 40 to 50% mid in-stent restenosis, 90% diagonal artery stenosis with deployment of Promus 2.5 x 24 stent, circumflex has 30% stenosis and right coronary artery was totally occluded with extensive [id number] collaterals, occluded vein graft to the right, patent MATTSON to LAD, patent vein graft to the ramus intermedius/obtuse marginal branch. Repeat cardiac catheterization done by Dr. Xiong in 2020 with similar finding. No change in anatomy, conservative management is recommended Status post recent COVID-19 infection. Recovering Hypertension, hypertensive urgency Maintained on amlodipine 10 mg daily Previously was complaining of fatigue on metoprolol was unable to tolerated Unable to tolerate hydralazine I tried carvedilol and appeared that he did not continue on that medication Cannot tolerate SASCHA or ARB due to history of renal failure, I reviewed his record and his creatinine did not go over 2. He was started back on losartan I will continue monitoring renal function Chronic kidney disease stage IV. Hyperlipidemia, Was on pravastatin in the past LDL 104, I will start Lipitor 10 mg daily Peripheral arterial disease, extensive disease Had surgery done with Dr. Mojica in March 2018. Abdominal aortic aneurysm and severe peripheral arterial disease with questionable aorto bifemoral bypass and reported a total of 6 peripheral stents including iliac stent, No recent work-up Mild bilateral carotid stenosis, no recent ultrasound Tobaccoism, still an active smoker Diabetes mellitus, followed and managed by primary care physician COPD History of noncompliance with medications SUSAN BAJWA MD Mar 04, 2023 07:43
[2023-03-04] MEDS ORDERED: POTASSIUM CHLORIDE 20 MEQ TABLET PO ONE (08:00)
[2023-03-04] MEDS: LOSARTAN 25 MG TABLET PO SCH (08:38)
[2023-03-04] MEDS: cloNIDine 0.1 MG TABLET PO SCH ×2 (08:39→13:27)
[2023-03-04] MEDS: amLODIPine 10 MG TABLET PO SCH (08:39)
[2023-03-04] MEDS: CLOPIDOGREL 75 MG TABLET PO SCH (08:39)
[2023-03-04] MEDS: ENOXAPARIN 120 MG/0.8 ML SYRINGE SC SCH (08:39)
[2023-03-04] MEDS: SENNOSIDES 8.6 MG TABLET PO SCH (08:40)
[2023-03-04] MEDS: DOCUSATE SODIUM 100 MG CAPSULE PO SCH (08:40)
[2023-03-04] MEDS ORDERED: ASPIRIN enteric coated 81MG TABLET PO SCH (09:00)
--- NOTE | 2023-03-04 09:04 | Diagnostic Imaging Report ---
EXAMINATION: Chest 1 view HISTORY: Heart failure COMPARISON: 01/01/2023 FINDINGS: The lungs are clear without edema or pneumonia. No pleural effusion or pneumothorax. Heart size is normal. Median sternotomy wires are aligned. IMPRESSION: 1. Clear lungs. Dictated by: Dictated on workstation # [id number]
--- NOTE | 2023-03-04 09:53 | Progress Note ---
MARTIN TORRES 03/04/23 0953: Subjective Date Seen by a Provider: Mar 04, 2023 Time Seen by a Provider: 08:45 Subjective/Events-last exam 62-year-old male with history of previous [place], CAD with CABG x3, and PVD presented to the ED on 03/03 with CC of chest pain. He states that the pain started around 1:00 that morning. He took 2 nitro tabs which provided a little relief, however the pain persisted leading to his presentation to the ED. He had recently gotten over COVID, asymptomatic as of . EKG was unchanged from prior visits and CXR showed no acute findings. His D-dimer was elevated at 2.69 and troponin elevated at 0.045. He was given nitro paste, morphine, lovenox and ASA which resolved his chest pain, did not have any more chest pain during his stay. Initial BP was measured at 209/104, improved after receiving nitro and metoprolol. BP was managed with amlodipine, losartan and clonidine during his stay, systolic stayed around the 130s on this regimen. Patient has a history of COPD and is an active smoker, denied any SOB but appeared dyspneic so he was placed on 2L O2 via NC, maintained good O2 sats and denied any SOB. Cardiology was consulted, recommended conservative treatment with ASA, plavix, atrovastatin, and lovenox. Troponin today trended down at 0.039. Venous doppler showed no DVT and Lung scan showed no sign of PE. Patient reports that he feels well this morning, no chest pain or SOB. Patient has no new complaints. Review of Systems General: No Chills, No Night Sweats HEENT: No Head Aches, No Visual Changes Pulmonary: No Dyspnea, No Cough Cardiovascular: No: Chest Pain, Palpitations Gastrointestinal: No: Nausea, Vomiting Genitourinary: No Dysuria, No Hematuria Musculoskeletal: No: neck pain, back pain Neurological: No: Weakness, Numbness Objective Exam Last Set of Vital Signs Vital Signs Date Time Temp Pulse Resp B/P (MAP) Pulse Ox O2 Delivery O2 Flow Rate FiO2 03/04/23 09:00 65 17 148/74 (98) 90 Room Air 03/04/23 08:00 2.00 03/04/23 07:21 36.3 Capillary Refill : Less Than 3 Seconds I&O Intake and Output 03/04/23 00:00 Intake Total 860 ml Output Total 400 ml Balance 460 ml Intake Oral 860 ml Output Urine Total 400 ml # Voids 1 Daily Weight Change No General: Alert, Oriented X3 HEENT: Atraumatic Neck: Supple, No JVD Lungs: Clear to Auscultation, Normal Air Movement Heart: Regular Rate Abdomen: Soft, No Tenderness Extremities: No Clubbing, No Edema, Normal Pulses Skin: No Rashes, No Breakdown Neuro: Normal Speech, Normal Tone Psych/Mental Status: Mental Status NL, Mood NL Results Lab Laboratory Tests 03/03/23 12:55: Troponin I 0.039H 03/04/23 03:57: Troponin I 0.039H, White Blood Count 11.0, Red Blood Count 4.60, Hemoglobin 14.6, Hematocrit 44, Mean Corpuscular Volume 95, Mean Corpuscular Hemoglobin 32, Mean Corpuscular Hemoglobin Concent 34, Red Cell Distribution Width 13.9, Platelet Count 202, Mean Platelet Volume 10.0, Immature Granulocyte % (Auto) 1, Neutrophils (%) (Auto) 60, Lymphocytes (%) (Auto) 33, Monocytes (%) (Auto) 3, Eosinophils (%) (Auto) 2, Basophils (%) (Auto) 0, Neutrophils # (Auto) 6.7, Lymphocytes # (Auto) 3.7, Monocytes # (Auto) 0.3, Eosinophils # (Auto) 0.3, Basophils # (Auto) 0.0, Immature Granulocyte # (Auto) 0.1, Sodium Level 138, Potassium Level 3.5L, Chloride Level 105, Carbon Dioxide Level 22, Anion Gap 11, Blood Urea Nitrogen 14, Creatinine 1.65H, Estimat Glomerular Filtration Rate 46, BUN/Creatinine Ratio 8, Glucose Level 98, Calcium Level 8.3L, Corrected Calcium 8.5, Phosphorus Level 2.6, Magnesium Level 2.0, Total Bilirubin 0.7, Aspartate Amino Transf (AST/SGOT) 19, Alanine Aminotransferase (ALT/SGPT) 21, Alkaline Phosphatase 84, B-Type Natriuretic Peptide 48.3, Total Protein 6.1L, Albumin 3.7, Triglycerides Level 257H, Cholesterol Level 148, LDL Cholesterol Direct 104, VLDL Cholesterol 51H, HDL Cholesterol 21L Microbiology 03/03/23 MRSA Screen - Final, Complete MRSA not isolated Assessment/Plan Assessment/Plan Assess & Plan/Chief Complaint NSTEMI: Cardiology consulted, appreciate recs, continue ASA, plavix, lovenox, atorvastatin Unstable angina: Reports no chest pain since admission, cardiology consulted, continue ASA, plavix, lovenox, atorvastatin Hypertensive urgency: Cardiology consulted, BP currently in 130s systolic, continue amlodipine, losartan and clonidine CAD with history of CABG x3: Cardiology consulted continue ASA, plavix, lovenox, atorvastatin COPD: Currently on 2L O2 via NC, good O2 sats, no SOB, nebs as needed PVD: History of 6 stents including iliac, last surgery done [place] [address] Levin HLD: Continue atorvastatin CKD: Cr at 1.65 from 1.61, at patient's baseline, continue to monitor BUN and Cr. [id number]-[id number] T2DM: SSI B/l carotid artery stenosis: no recent US, last one showed mild stenosis Current smoker: nicotine patches as needed Clinical Quality Measures Admission Status Admission Dx NSTEMI: Cardiology consulted, appreciate recs, continue ASA, plavix, lovenox Hypertensive urgency: Cardiology consulted, BP currently in 130s systolic, takes amlodipine at home, losartan and clonidine added today CAD with history of CABG x3: Cardiology consulted continue ASA, plavix, lovenox COPD: Currently on 2L O2 via NC, nebs as needed PVD: History of 6 stents including iliac, last surgery done [place] [address] Levin HLD: has been on pravastatin, continue CKD: Cr elevated at 1.61, at patient's baseline, continue to monitor BUN and Cr. [id number]-[id number] T2DM: SSI B/l carotid artery stenosis: no recent US, last one showed mild stenosis Current smoker: nicotine patches as needed AMI/AHF: ASA po Prior to arrival: SOLANGE Tapia DO 03/04/231955: Supervisory-Addendum Brief Verification & Attestation Participated in pt care: history, MDM, physical Personally performed: exam, history, MDM, supervision of care Care discussed with: Medical Student Procedures: n/a Results interpretation: Verified all documentation Verification and Attestation of Medical Student E/M Service A medical student performed and documented this service in my presence. I reviewed and verified all information documented by the medical student and made modifications to such information, when appropriate. I personally performed the physical exam and medical decision making. oSlange Reagan, Mar 04, 2023,19:56 MARTIN TORRES Mar 04, 2023 09:53 SOLANGE REAGAN DO Mar 04, 2023 19:56
[2023-03-04] MEDS ORDERED: AMLO-335 PO (11:28)
[2023-03-04] MEDS ORDERED: LOSA25TA41 PO ×2 (11:28→12:25)
--- NOTE | 2023-03-04 11:31 | Diagnostic Imaging Report ---
PROCEDURE: US Venous Lower Ext Bob. TECHNIQUE: Multiple real-time grayscale images were obtained over the lower extremities in various projections, bilaterally. Additional duplex Doppler and color Doppler images were also obtained. INDICATION: Elevated d-dimer. No additional clinical history is provided. COMPARISON: Non available. FINDINGS: The bilateral common femoral, femoral and popliteal veins are patent by color doppler imaging and without DVT. Visualized proximal aspects of the greater saphenous, deep femoral, posterior tibial and peroneal veins are also patent. All of the evaluated deep venous structures demonstrate normal compressibility and waveform augmentation where applicable. IMPRESSION: No deep venous thrombosis in either of the lower extremities. Dictated by: Dictated on workstation # [id number]
[2023-03-04] MEDS ORDERED: CLN.1T PO (11:36)
[2023-03-04] MEDS ORDERED: AMLO-379 PO (11:48)
[2023-03-04] MEDS ORDERED: ASPI-1238 PO (12:25)
[2023-03-04] MEDS ORDERED: ATOR10TA66 PO (12:25)
--- NOTE | 2023-03-04 12:25 | Discharge Summary ---
Diagnosis/Chief Complaint Date of Admission Mar 03, 2023 at 10:10 Date of Discharge Discharge Date: Mar 04, 2023 Discharge Diagnosis Assessment: Unstable angina NSTEMI Hypertensive urgency CAD history of bypass Hyperlipidemia Chronic kidney disease Elevated D-dimer Current smoker Plan: Admit Cardiology consult ICU Reason Hospital Visit Chief complaint: Angina HPI: This is a 62-year-old male clinic patient of mine with a past medical history of severe hypertension and CAD previous bypass with peripheral vascular disease who presented to the ER with chest pain. He had COVID last week. Cardiology consulted. Blood pressure much better with IV medication. Discharge Summary Discharge Physical Examination Allergies: Coded Allergies: No Known Drug Allergies (Unverified , 03/18/11) Vitals & I&Os Vital Signs Date Time Temp Pulse Resp B/P (MAP) Pulse Ox O2 Delivery O2 Flow Rate FiO2 03/04/23 14:22 03/04/23 12:55 63 03/04/23 12:00 14 93 Room Air 03/04/23 11:38 36.2 03/04/23 08:00 2.00 General Appearance: Alert, Oriented X3, Cooperative Respiratory: Clear to Auscultation Cardiovascular: Regular Rate Psych/Mental Status: Mental Status NL Hospital Course Was the Problem List Reviewed?: Yes 62-year-old male with history of previous [place], CAD with CABG x3, and PVD presented to the ED on 03/03 with CC of chest pain. He states that the pain started around 1:00 that morning. He took 2 nitro tabs which provided a little relief, however the pain persisted leading to his presentation to the ED. He had recently gotten over COVID, asymptomatic as of . EKG was unchanged from prior visits and CXR showed no acute findings. His D-dimer was elevated at 2.69 and troponin elevated at 0.045. He was given nitro paste, morphine, lovenox and ASA which resolved his chest pain, did not have any more chest pain during his stay. Initial BP was measured at 209/104, improved after receiving nitro and metoprolol. BP was managed with amlodipine, losartan and clonidine during his stay, systolic stayed around the 130s on this regimen. Patient has a history of COPD and is an active smoker, denied any SOB but appeared dyspneic so he was placed on 2L O2 via NC, maintained good O2 sats and denied any SOB. Cardiology was consulted, recommended conservative treatment with ASA, plavix, atrovastatin, and lovenox. Troponin today trended down at 0.039. Venous doppler showed no DVT and Lung scan showed no sign of PE. Patient reports that he feels well this morning, no chest pain or SOB. Patient has no new complaints. Labs (last 24 hrs) Laboratory Tests 03/03/23 08:23: White Blood Count 10.6, Red Blood Count 5.12, Hemoglobin 16.2, Hematocrit 49, Mean Corpuscular Volume 95, Mean Corpuscular Hemoglobin 32, Mean Corpuscular Hemoglobin Concent 33, Red Cell Distribution Width 13.7, Platelet Count 202, Mean Platelet Volume 9.6, Immature Granulocyte % (Auto) 1, Neutrophils (%) (Auto) 65, Lymphocytes (%) (Auto) 28, Monocytes (%) (Auto) 4, Eosinophils (%) (Auto) 3, Basophils (%) (Auto) 0, Neutrophils # (Auto) 6.9, Lymphocytes # (Auto) 3.0, Monocytes # (Auto) 0.4, Eosinophils # (Auto) 0.3, Basophils # (Auto) 0.0, Immature Granulocyte # (Auto) 0.1, Prothrombin Time 12.4, INR Comment 0.9, Activated Partial Thromboplast Time 37H, D-Dimer 2.09H, Sodium Level 139, Potassium Level 3.6, Chloride Level 105, Carbon Dioxide Level 20L, Anion Gap 14, Blood Urea Nitrogen 11, Creatinine 1.61H, Estimat Glomerular Filtration Rate 47, BUN/Creatinine Ratio 7, Glucose Level 170H, Calcium Level 8.8, Corrected Calcium 8.6, Magnesium Level 2.0, Total Bilirubin 0.6, Aspartate Amino Transf (AST/SGOT) 23, Alanine Aminotransferase (ALT/SGPT) 23, Alkaline Phosphatase 109, Total Creatine Kinase 110, Creatine Kinase MB 2.1, Myoglobin 74.9, Troponin I 0.045H, B-Type Natriuretic Peptide 70.7, Total Protein 7.2, Albumin 4.2, Amylase Level 59, Lipase 58 03/03/23 12:55: Troponin I 0.039H 03/04/23 03:57: White Blood Count 11.0, Red Blood Count 4.60, Hemoglobin 14.6, Hematocrit 44, Mean Corpuscular Volume 95, Mean Corpuscular Hemoglobin 32, Mean Corpuscular Hemoglobin Concent 34, Red Cell Distribution Width 13.9, Platelet Count 202, Mean Platelet Volume 10.0, Immature Granulocyte % (Auto) 1, Neutrophils (%) (Auto) 60, Lymphocytes (%) (Auto) 33, Monocytes (%) (Auto) 3, Eosinophils (%) (Auto) 2, Basophils (%) (Auto) 0, Neutrophils # (Auto) 6.7, Lymphocytes # (Auto) 3.7, Monocytes # (Auto) 0.3, Eosinophils # (Auto) 0.3, Basophils # (Auto) 0.0, Immature Granulocyte # (Auto) 0.1, Sodium Level 138, Potassium Level 3.5L, Chloride Level 105, Carbon Dioxide Level 22, Anion Gap 11, Blood Urea Nitrogen 14, Creatinine 1.65H, Estimat Glomerular Filtration Rate 46, BUN/Creatinine Ratio 8, Glucose Level 98, Calcium Level 8.3L, Corrected Calcium 8.5, Magnesium Level 2.0, Total Bilirubin 0.7, Aspartate Amino Transf (AST/SGOT) 19, Alanine Aminotransferase (ALT/SGPT) 21, Alkaline Phosphatase 84, Troponin I 0.039H, B- Type Natriuretic Peptide 48.3, Total Protein 6.1L, Albumin 3.7, Phosphorus Level 2.6, Triglycerides Level 257H, Cholesterol Level 148, LDL Cholesterol Direct 104, VLDL Cholesterol 51H, HDL Cholesterol 21L Microbiology 03/03/23 MRSA Screen - Final, Complete MRSA not isolated Pending Labs Microbiology Date/Time Source Procedure Growth Status 03/03/23 10:15 Nasal MRSA Screen - Final MRSA not isolated Complete Laboratory Tests 03/03/23 08:23: White Blood Count 10.6, Red Blood Count 5.12, Hemoglobin 16.2, Hematocrit 49, Mean Corpuscular Volume 95, Mean Corpuscular Hemoglobin 32, Mean Corpuscular Hemoglobin Concent 33, Red Cell Distribution Width 13.7, Platelet Count 202, Mean Platelet Volume 9.6, Immature Granulocyte % (Auto) 1, Neutrophils (%) (Auto) 65, Lymphocytes (%) (Auto) 28, Monocytes (%) (Auto) 4, Eosinophils (%) (Auto) 3, Basophils (%) (Auto) 0, Neutrophils # (Auto) 6.9, Lymphocytes # (Auto) 3.0, Monocytes # (Auto) 0.4, Eosinophils # (Auto) 0.3, Basophils # (Auto) 0.0, Immature Granulocyte # (Auto) 0.1, Prothrombin Time 12.4, INR Comment 0.9, Activated Partial Thromboplast Time 37, D-Dimer 2.09, Sodium Level 139, Potassium Level 3.6, Chloride Level 105, Carbon Dioxide Level 20, Anion Gap 14, Blood Urea Nitrogen 11, Creatinine 1.61, Estimat Glomerular Filtration Rate 47, BUN/Creatinine Ratio 7, Glucose Level 170, Calcium Level 8.8, Corrected Calcium 8.6, Magnesium Level 2.0, Total Bilirubin 0.6, Aspartate Amino Transf (AST/SGOT) 23, Alanine Aminotransferase (ALT/SGPT) 23, Alkaline Phosphatase 109, Total Creatine Kinase 110, Creatine Kinase MB 2.1, Myoglobin 74.9, Troponin I 0.045, B-Type Natriuretic Peptide 70.7, Total Protein 7.2, Albumin 4.2, Amylase Level 59, Lipase 58 03/03/23 12:55: Troponin I 0.039 03/04/23 03:57: White Blood Count 11.0, Red Blood Count 4.60, Hemoglobin 14.6, Hematocrit 44, Mean Corpuscular Volume 95, Mean Corpuscular Hemoglobin 32, Mean Corpuscular Hemoglobin Concent 34, Red Cell Distribution Width 13.9, Platelet Count 202, Mean Platelet Volume 10.0, Immature Granulocyte % (Auto) 1, Neutrophils (%) (Auto) 60, Lymphocytes (%) (Auto) 33, Monocytes (%) (Auto) 3, Eosinophils (%) (Auto) 2, Basophils (%) (Auto) 0, Neutrophils # (Auto) 6.7, Lymphocytes # (Auto) 3.7, Monocytes # (Auto) 0.3, Eosinophils # (Auto) 0.3, Basophils # (Auto) 0.0, Immature Granulocyte # (Auto) 0.1, Sodium Level 138, Potassium Level 3.5, Chloride Level 105, Carbon Dioxide Level 22, Anion Gap 11, Blood Urea Nitrogen 14, Creatinine 1.65, Estimat Glomerular Filtration Rate 46, BUN/Creatinine Ratio 8, Glucose Level 98, Calcium Level 8.3, Corrected Calcium 8.5, Magnesium Level 2.0, Total Bilirubin 0.7, Aspartate Amino Transf (AST/SGOT) 19, Alanine Aminotransferase (ALT/SGPT) 21, Alkaline Phosphatase 84, Troponin I 0.039, B- Type Natriuretic Peptide 48.3, Total Protein 6.1, Albumin 3.7, Phosphorus Level 2.6, Triglycerides Level 257, Cholesterol Level 148, LDL Cholesterol Direct 104, VLDL Cholesterol 51, HDL Cholesterol 21 Discharge Home Medications: Active Scripts Active Aspirin EC (Aspirin) 81 Mg Tablet.dr 81 Mg PO DAILY Losartan Potassium 25 Mg Tablet 25 Mg PO DAILY Atorvastatin Calcium 10 Mg Tablet 10 Mg PO HS Amlodipine-Atorvast 5-10 mg (Amlodipine/Atorvastatin) 5 Mg-10 Mg Tablet 1 Each PO HS 30 Days Filled at the [facility] Clonidine HCl 0.1 Mg Tablet 0.1 Mg PO TID 30 Days Filled at the [facility] Losartan Potassium 25 Mg Tablet 25 Mg PO DAILY 30 Days FILLED AT THE [facility] Reported Sleep Aid (Doxylamine Succinate) 25 Mg Tablet 50 Mg PO HS TAKES 2 (25MG) TABS Preservision Areds 2 Softgel (Vit C/E/Zn/Coppr/Lutein/Zeaxan) Unknown Strength Capsule 1 Ea PO BID Nitroglycerin 0.4 Mg Tab.subl 0.4 Mg SL UD PRN 1 TAB SL Q 5 MINS X3 DOSES Amlodipine Besylate 10 Mg Tablet 10 Mg PO DAILY Plavix (Clopidogrel Bisulfate) 75 Mg Tablet 75 Mg PO DAILY Instructions to patient/family Please see electronic discharge instructions given to patient. Clinical Quality Measures AMI/AHF: ASA po Prior to arrival: YINA Tapia DO Mar 04, 2023 12:25
--- NOTE | 2023-03-04 12:57 | Diagnostic Imaging Report ---
INDICATION: 62-year-old male, hospitalized patient, elevated D-dimer, history of cough, shortness of breath and chest pain CORRELATION STUDY: None FINDINGS: Ventilation imaging not obtained due to to current Covid protocol. 5.42 mCi of technetium-99m MAA utilized for perfusion imaging. Multiplanar imaging demonstrates no significant peripherally based perfusion defect to suggest pulmonary embolism. IMPRESSION: 1. Unremarkable perfusion lung scan. No findings to suggest pulmonary embolism. Dictated by: Dictated on workstation # [id number]
[2023-03-04] MEDS ORDERED: DOXYLAMINE 25 MG TABLET PO SCH (21:00)
== END 2023-03-04 13:50 | disposition home or self-care (01) | DRG 281 ==
LOC: EDUNIT# 08:14 → ER 08:16 → ICU 10:10
PROVIDERS: ADMIT Internal Medicine; ATTEND Internal Medicine
DX: I21.4 Non-ST elevation (NSTEMI) myocardial infarction (principal); I13.0 Hypertensive heart and chronic kidney disease with heart failure and stage 1 through stage 4 chronic kidney disease, or unspecified chronic kidney disease; N18.4 Chronic kidney disease, stage 4 (severe); I16.0 Hypertensive urgency; I50.9 Heart failure, unspecified; I25.2 Old myocardial infarction; Z95.1 Presence of aortocoronary bypass graft; Z95.5 Presence of coronary angioplasty implant and graft; J44.9 Chronic obstructive pulmonary disease, unspecified; Z79.82 Long term (current) use of aspirin; Z79.899 Other long term (current) drug therapy; F17.210 Nicotine dependence, cigarettes, uncomplicated; E78.00 Pure hypercholesterolemia, unspecified; M19.90 Unspecified osteoarthritis, unspecified site; G89.29 Other chronic pain; M54.9 Dorsalgia, unspecified; E11.22 Type 2 diabetes mellitus with diabetic chronic kidney disease; E11.51 Type 2 diabetes mellitus with diabetic peripheral angiopathy without gangrene; E11.65 Type 2 diabetes mellitus with hyperglycemia; Z86.16 Personal history of COVID-19; I65.23 Occlusion and stenosis of bilateral carotid arteries; I25.110 Atherosclerotic heart disease of native coronary artery with unstable angina pectoris
CPT/HCPCS: 36415; 71045; 78580; 80053; 80061; 82150; 82550; 82553; 83690; 83735; 83874; 83880; 84100; 84484; 85025; 85027; 85379; 85610; 85730; 87081; 93005; 93041; 93306; 93970